=== PATIENT | male | born 1955 | race Caucasian/White ===

== ENCOUNTER 2018-03-10 10:04 | Inpatient (IN) | payer MEDICARE ==
[~2018-03-10] VITALS: Ht 170.2 cm; Wt 79.0 kg
[2018-03-10] MEDS ORDERED: MEMA10TA PO (10:39)
[2018-03-10] MEDS ORDERED: VENL75CA6 PO (10:39)
[2018-03-10] MEDS ORDERED: POLY17PO5 PO (10:39)
[2018-03-10] MEDS ORDERED: LAMO25TA PO (10:39)
[2018-03-10] MEDS ORDERED: RISP0.5T24 PO (10:39)
--- NOTE | 2018-03-10 10:48 | RAD ---
CT HEAD WO CONTRAST History: MEDICAL CLEARANCE, PSYCH EVALUATION Comparison: None. Technique: Noncontrast CT imaging was performed of the head. Exposure: One or more of the following individualized dose reduction techniques were utilized for this examination: 1. Automated exposure control 2. Adjustment of the mA and/or kV according to patient size 3. Use of iterative reconstruction technique. Findings: No acute extra-axial or parenchymal hemorrhage is identified. There is no significant intra-axial mass effect, midline shift, or extra-axial fluid collection. The hester-white differentiation of the major vascular territories is preserved. Ventricular size is within normal limits. There is mild ill-defined low-density of the supratentorial white matter bilaterally. The mastoid air cells and the visualized paranasal sinuses are aerated. No acute calvarial abnormality is identified. Impression: 1. No acute intracranial abnormality is identified. Mild ill-defined low-density of the supratentorial white matter bilaterally is nonspecific, may be due to chronic microvascular ischemic disease. Electronically signed by: Kip Richardson MD (03/10/2018 10:44 AM) [email or web address]
[2018-03-10 11:03] LABS: ALBUMIN 4.1 g/dL (3.4-5.0); ALBUMIN/GLOBULIN RATIO 1.1 (1.0-1.7); CALCIUM 9.4 mg/dL (8.5-10.1); GFR 75.7; POTASSIUM 4.3 mmol/L (3.5-5.1); TOTAL BILIRUBIN 0.5 mg/dL (0.2-1.0)
[2018-03-10 11:17] LABS: BASO # 0.1 x10^3/uL (0.0-0.2); BASO % 1 % (0-3); EOS # 0.2 x10^3/uL (0.0-0.7); EOS % 3 % (0-3); HEMATOCRIT 44.8 % (39.0-53.0); HEMOGLOBIN 15.2 g/dL (13.0-17.5); LYMPH # 1.4 x10^3/uL (1.0-4.8); LYMPH % 20 % (24-48); MEAN CORPUSCULAR HEMOGLOBIN 31 pg (25-35); MEAN CORPUSCULAR HGB CONC 34 g/dL (31-37); MEAN CORPUSCULAR VOLUME 91 fL (79-100); MONO # 0.7 x10^3/uL (0.0-1.1); MONO % 10 % (0-9); NEUT # 4.8 x10^3uL (1.8-7.7); NEUT % 66 % (31-73); PLATELET COUNT 266 x10^3/uL (140-400); RED BLOOD COUNT 4.95 x10^6/uL (4.30-5.70); RED CELL DISTRIBUTION WIDTH 12.8 % (11.5-14.5); WHITE BLOOD COUNT 7.2 x10^3/uL (4.0-11.0)
--- NOTE | 2018-03-10 11:27 | PHYS DOC ---
Past History Past Medical History: Dementia, High Cholesterol Past Surgical History: No Surgical History Alcohol Use: None Additional Alcohol Information: Used to be a heavy drinker. Drug Use: None Adult General Chief Complaint Chief Complaint: PSYCH EVALUATION HPI HPI 62-year-old male presenting the emergency department today for medical clearance prior to [facility] admission. Patient has a history of chronic dementia. He denies any pain. Family members deny any acute changes in his mental status. He has been more agitated at the facility he is living. They report he has been throwing chairs at adult daycare. The patient is on Lamictal Risperdal. onset 1 week. duration intermittent. no alleviating factors. Review of systems is negative for chest pain shortness of breath abdominal pain nausea vomiting. Negative for fevers chills neck pain neck stiffness. All other review of systems is negative unless otherwise noted in history of present illness. ED course: 62-year-old male presenting the emergency department today for medical clearance prior to [facility] admission. On arrival he is afebrile with a normal heart rate. On examination, the patient is well- appearing and nontoxic. Normal range of motion of the neck. Abdomen is soft and nontender. Unremarkable neurologic exam. Head CT unremarkable. Blood work unremarkable. EKG reviewed by myself shows sinus rhythm with a regular rate. ST segments are not suggestive of ischemia. No previous for comparison. Patient is medically cleared. The patient was then admitted to the [facility] for further evaluation treatment and care. Review of Systems Review of Systems SEE ABOVE. Allergies Allergies Allergies Coded Allergies Type Severity Reaction Last Updated Verified hydrocodone Allergy Unknown 03/10/18 Yes Physical Exam Physical Exam SEE ABOVE Constitutional: Well developed, well nourished, no acute distress, non-toxic appearance. HENT: Normocephalic, atraumatic, bilateral external ears normal, oropharynx moist, no oral exudates, nose normal. [] Eyes: PERRLA, EOMI, conjunctiva normal, no discharge. Neck: Normal range of motion, no tenderness, supple, no stridor. [] Cardiovascular:Heart rate regular rhythm, no murmur [] Lungs & Thorax: Bilateral breath sounds clear to auscultation Abdomen: Bowel sounds normal, soft, no tenderness, no masses, no pulsatile masses. [] Skin: Warm, dry, no erythema, no rash. Back: No tenderness, no CVA tenderness. [] Extremities: No tenderness, no cyanosis, no clubbing, ROM intact, no edema. [] Neurologic: Mental status: Awake oriented and alert x3 Cranial nerves: Extraocular movements intact, eyebrows megan bilaterally, smile symmetric, uvula elevation nl, shoulder shrug intact bilaterally, tongue protrusion normal DTRs: 2+ Sensation: equal and normal in all extremities Strength: 5/5 in upper and lower extremities bilaterally Psychologic: Affect normal, judgement normal, mood normal. [] Current Patient Data Vital Signs Vital Signs Date Time Temp Pulse Resp B/P (MAP) Pulse Ox O2 Delivery O2 Flow Rate FiO2 03/10/18 10:35 97.8 75 16 99 Room Air Lab Results Laboratory Tests Test 03/10/18 10:26 Sodium Level 142 mmol/L (136-145) Potassium Level 4.3 mmol/L (3.5-5.1) Chloride Level 103 mmol/L (98-107) Carbon Dioxide Level 31 mmol/L (21-32) Anion Gap 8 (6-14) Blood Urea Nitrogen 14 mg/dL (8-26) Creatinine 1.0 mg/dL (0.7-1.3) Estimated GFR (Cockcroft-Gault) 75.7 BUN/Creatinine Ratio 14 (6-20) Glucose Level 72 mg/dL (70-99) Calcium Level 9.4 mg/dL (8.5-10.1) Total Bilirubin 0.5 mg/dL (0.2-1.0) Aspartate Amino Transferase (AST) 20 U/L (15-37) Alanine Aminotransferase (ALT) 29 U/L (16-63) Alkaline Phosphatase 85 U/L (46-116) Total Protein 8.0 g/dL (6.4-8.2) Albumin 4.1 g/dL (3.4-5.0) Albumin/Globulin Ratio 1.1 (1.0-1.7) EKG EKG [] Radiology/Procedures Radiology/Procedures [] Course & Med Decision Making Course & Med Decision Making Pertinent Labs and Imaging studies reviewed. (See chart for details) [] Dragon Disclaimer Dragon Disclaimer This electronic medical record was generated, in whole or in part, using a voice recognition dictation system. Departure Departure: Impression: Primary Impression: Medical clearance for psychiatric admission Disposition: ADMITTED INPATIENT Condition: STABLE Referrals: VINOD CAN (PCP) JAY PATTERSON MD March 10, 2018 11:27
[2018-03-10 12:18] LABS: BACTERIA,URINE 0 /HPF (0-FEW); BILIRUBIN,URINE NEG (NEG); CLARITY,URINE HAZY; COLOR,URINE AMBER; GLUCOSE,URINE NEG (NEG); NITRITE,URINE NEG (NEG); RBC,URINE 0 /HPF (0-2); SQUAMOUS EPITHELIAL CELL,UR OCC /LPF; UROBILINOGEN,URINE 0.2 mg/dL (0.2 mg/dL); WBC,URINE RARE /HPF (0-4)
[2018-03-10 13:57] VITALS: BP 129/77
--- NOTE | 2018-03-10 14:28 | EKG ---
[address] [address] Test Date: 2018-03-10 Test Time: 10:43:20 Pat Name: ARNOL VARGAS Department: Room: [address] [place] [id number] Gender: M Packer Fuser: : [id number] Requested By: JAY PATTERSON Order Number: [id number] Reading MD: Pako Givens MD Measurements Intervals Muir Rate: 77 P: -4 MO: 154 QRS: 24 QRSD: 102 T: 8 QT: 406 QTc: 461 Interpretive Statements SINUS RHYTHM Electronically Signed On 03-29-2018 9:57:23 CDT by Pako Givens MD
[2018-03-10] MEDS ORDERED: ASPI-630 PO (14:51)
[2018-03-10] MEDS ORDERED: RISP1TAB3 PO (14:51)
[2018-03-10] MEDS ORDERED: MULT1TAB52 PO (14:51)
[2018-03-10] MEDS ORDERED: METHYL SALICYLATE/MENTHOL TOPICAL OINTMENT 29GM TUBE. TP PRN (15:00)
[2018-03-10] MEDS ORDERED: MAGNESIUM HYDROXIDE 2,400 MG/30 ML ORAL.SUSP. PO PRN (15:00)
[2018-03-10] MEDS ORDERED: ACETAMINOPHEN 325 MG TABLET PO PRN (15:00)
[2018-03-10] MEDS ORDERED: MAG HYDROX/AL HYDROX/SIMETH 30 ML ORAL.SUSP PO PRN (15:00)
[2018-03-10 16:05] VITALS: BP 127/81
[2018-03-10] MEDS: MEMANTINE 10 MG TABLET. PO SCH (19:37)
--- NOTE | 2018-03-10 19:49 | HP ---
ADMIT DATE: 03/10/2018 This note covers the elements not covered in my initial note, 03/10/2018. SUMMARY OF PROGRESS: I met with the patient evening of 03/10/2018. I reviewed the chart and previously had discussed with the nursing staff. IDENTIFYING DATA: The patient was in the Emergency Room at [facility], presented from home where he lives with his spouse, on an account of increasing agitation after he threw chairs at the adult daycare. He was increasingly paranoid, psychotic, and aggressive at home. Psychotropic medication changes had been initiated by his primary care physician, Dr. Jesika Johnson in [place] and he had failed all of this resulting in this referral. CHIEF COMPLAINT: "No." HISTORY OF PRESENT ILLNESS: The patient has a history of dementia, Alzheimer's vascular type. Additionally, recently he has been having some mild seizure-like activity as well. We will consult Dr. Guardado for this. As mentioned above, he was getting increasingly paranoid, agitated, and aggressive at home, throwing the chairs at the adult daycare. He has had sleep and appetite changes. No clear history of bipolar disorder, suicidal or homicidal ideation. PAST PSYCHIATRIC HISTORY: As above. MEDICAL HISTORY: Positive for hyperlipidemia, seizure disorder. CODE STATUS: DNR. ALLERGIES: HYDROCODONE. ACCU-CHEKS: None. DIET: Regular, he takes his medications whole, ambulates up ad chiqui. CURRENT PSYCHOTROPICS: Risperdal 0.5 mg a.m., 1 mg at 1400; Lamictal 75 mg daily, Namenda 10 mg b.i.d., Effexor ER 75 mg a day. FAMILY HISTORY: Noncontributory. His mother from early onset Alzheimer's at age 65. SOCIAL HISTORY: The patient used to drink 2 or 3 bourbon each night to help him go to sleep according to the family. 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 He moved to [place] to write about [employer]. He has three children, 6 grandchildren, has been to his Debra for 40 years. They moved back to the [facility] after he was diagnosed with early onset Alzheimer's at age 57, to be near to their children. He also smoked cigarettes until 03/2017. Debra is his caregiver at home, would like for him to return home if at all possible. He has been mainly continent, but needs assistance with showering, shaving, help with wiping after bowel movements. REACTION TO HOSPITALIZATION: The patient is oblivious of this assets, supportive family. MENTAL STATUS EXAMINATION: The patient was seen individually evening of 03/10/2018. He is oriented to himself. Has a parkinsonian facial expression. He is not very verbal, somewhat withdrawn. Insight, judgment, recent and remote memory, attention, concentration, fund of knowledge poor, consistent with his diagnosis. LABORATORY DATA: Reviewed. CT head reportedly has been unremarkable. During the day today since being on the unit, he has been agitated, restless, through a combat, his nurse oblivious of what he was doing. IMPRESSION: Major neurocognitive disorder, probably Alzheimer, vascular with delusion, depression, behavioral disturbance; anxiety disorder, unspecified; impulse control disorder, unspecified; parkinsonian facial expression possibly consequent to EPS from Risperdal. Rest as above. PLAN: Admit to Geropsychiatry Unit at [facility]. I will see the patient daily individually from a psychiatric standpoint, medical followup per Dr. Tejada/Dr. Knight. Given his parkinsonian facial expression and extrapyramidal symptoms, we will go ahead and drop the Risperdal down to 0.5 mg twice a day. He does appear depressed. We will increase Effexor ER to 112.5 mg a day and start Zyprexa 2.5 mg every 2 hours as needed psychosis, agitation, maximum 10 mg in 24 hours. Increase lamotrigine to 100 mg a day. Neurology consult with Dr. Guardado for his seizures. Estimated length of stay 10-12 days. Discharge plan to either home or to a nursing facility depending on his progress and response to hospitalization. EVE BLANK MD DR: NBA/ariana JOB#: [id number] / [id number]
--- NOTE | 2018-03-10 20:51 | PDOC ---
Exam Note: Tadeo Note: Please also refer to the separate dictated note~for this date of service dictated separately.~Patient seen individually. Discussed the patient with Nursing staff reviewed the chart.~Reviewed interim history and current functioning. Reviewed vital signs,~Labs/ Radiology~and current medications noted below. Continue current treatment with the changes noted in the dictated addendum note Assessment: Vital Signs: Vital Signs Date Time Temp Pulse Resp B/P (MAP) Pulse Ox O2 Delivery O2 Flow Rate FiO2 03/10/18 16:05 97.8 88 20 127/81 (96) 92 Room Air Labs: Laboratory Tests Test 03/10/18 10:26 03/10/18 11:46 White Blood Count 7.2 x10^3/uL (4.0-11.0) Red Blood Count 4.95 x10^6/uL (4.30-5.70) Hemoglobin 15.2 g/dL (13.0-17.5) Hematocrit 44.8 % (39.0-53.0) Mean Corpuscular Volume 91 fL (79-100) Mean Corpuscular Hemoglobin 31 pg (25-35) Mean Corpuscular Hemoglobin Concent 34 g/dL (31-37) Red Cell Distribution Width 12.8 % (11.5-14.5) Platelet Count 266 x10^3/uL (140-400) Neutrophils (%) (Auto) 66 % (31-73) Lymphocytes (%) (Auto) 20 % (24-48) L Monocytes (%) (Auto) 10 % (0-9) H Eosinophils (%) (Auto) 3 % (0-3) Basophils (%) (Auto) 1 % (0-3) Neutrophils # (Auto) 4.8 x10^3uL (1.8-7.7) Lymphocytes # (Auto) 1.4 x10^3/uL (1.0-4.8) Monocytes # (Auto) 0.7 x10^3/uL (0.0-1.1) Eosinophils # (Auto) 0.2 x10^3/uL (0.0-0.7) Basophils # (Auto) 0.1 x10^3/uL (0.0-0.2) Sodium Level 142 mmol/L (136-145) Potassium Level 4.3 mmol/L (3.5-5.1) Chloride Level 103 mmol/L (98-107) Carbon Dioxide Level 31 mmol/L (21-32) Anion Gap 8 (6-14) Blood Urea Nitrogen 14 mg/dL (8-26) Creatinine 1.0 mg/dL (0.7-1.3) Estimated GFR (Cockcroft-Gault) 75.7 BUN/Creatinine Ratio 14 (6-20) Glucose Level 72 mg/dL (70-99) Calcium Level 9.4 mg/dL (8.5-10.1) Magnesium Level 2.2 mg/dL (1.8-2.4) Total Bilirubin 0.5 mg/dL (0.2-1.0) Aspartate Amino Transferase (AST) 20 U/L (15-37) Alanine Aminotransferase (ALT) 29 U/L (16-63) Alkaline Phosphatase 85 U/L (46-116) Total Protein 8.0 g/dL (6.4-8.2) Albumin 4.1 g/dL (3.4-5.0) Albumin/Globulin Ratio 1.1 (1.0-1.7) Urine Collection Type Unknown Urine Color Christy Urine Clarity Hazy Urine pH 7.0 Urine Specific [place] 1.020 Urine Protein Neg (NEG-TRACE) Urine Glucose (UA) Neg mg/dL (NEG) Urine Ketones (Stick) Neg mg/dL (NEG) Urine Blood Neg (NEG) Urine Nitrite Neg (NEG) Urine Bilirubin Neg (NEG) Urine Urobilinogen Dipstick 0.2 mg/dL (0.2 mg/dL) Urine Leukocyte Esterase Neg (NEG) Urine RBC 0 /HPF (0-2) Urine WBC Rare /HPF (0-4) Urine Squamous Epithelial Cells Occ /LPF Urine Bacteria 0 /HPF (0-FEW) Urine Mucus Slight /LPF Current Medications: Meds: Current Medications Aspirin (Children'S Aspirin) 81 mg DAILYWBKFT PO ; Start 03/11/18 at 08:00 Lamotrigine (LaMICtal) 75 mg DAILY PO ; Start 03/11/18 at 09:00; Stop 03/11/18 at 09:00; Status DC Memantine (Namenda) 10 mg BID PO Last administered on 03/10/18at 19:37; Start at 21:00 Multivitamins/ Calcium (Thera-M Plus) 1 tab DAILY PO ; Start 03/11/18 at 09:00 Polyethylene Glycol (miraLAX) 17 gm DAILY PO ; Start 03/11/18 at 09:00 Risperidone (RisperDAL) 1 mg DAILY@1400 PO ; Start 03/11/18 at 14:00; Stop 03/11 at 14:00; Status DC Risperidone (RisperDAL) 0.5 mg DAILY PO ; Start 03/11/18 at 09:00; Stop at 09:00; Status DC Venlafaxine HCl (Effexor Xr) 75 mg DAILY PO ; Start 03/11/18 at 09:00; Stop at 09:00; Status DC Acetaminophen (Tylenol) 650 mg PRN Q6HRS PRN PO PAIN / TEMP; Start 03/10/18 at 15:00 Multi-Ingredient Ointment (Analgesic [place]) 1 teri PRN QID PRN TP MUSCLE PAIN; Start 03/10/18 at 15:00 Al Hydroxide/Mg Hydroxide (Mylanta Plus Xs) 15 ml PRN AFTMEALHC PRN PO DYSPEPSIA; Start 03/10/18 at 15:00 Magnesium Hydroxide (Milk Of Magnesia) 2,400 mg PRN QHS PRN PO CONSTIPATION; Start 03/10/18 at 15:00 Risperidone (RisperDAL) 0.5 mg BID@0900,1400 PO ; Start 03/11/18 at 09:00 Olanzapine (ZyPREXA ZYDIS) 2.5 mg PRN Q2HR PRN PO agitation/aggression/ psychosis Last administered on 03/10/18at 19:37; Start 03/10/18 at 18:30 Lamotrigine (LaMICtal) 100 mg DAILY PO ; Start 03/11/18 at 09:00 Venlafaxine HCl (Effexor Xr) 112.5 mg DAILY PO ; Start 03/11/18 at 09:00 Active Scripts Active Reported Multivitamins (Multivitamin) 1 Each Tablet 1 Each PO DAILY Aspirin 81 Mg Tab.chew 81 Mg PO DAILY Risperidone 1 Mg Tablet 1 Mg PO DAILY@1400 Venlafaxine Hcl Er (Venlafaxine Hcl) 75 Mg Cap.er.24h 75 Mg PO DAILY Namenda (Memantine Hcl) 10 Mg Tablet 10 Mg PO BID Lamotrigine 25 Mg Tablet 75 Mg PO DAILY Miralax (Polyethylene Glycol 3350) 17 Gm Powd.pack 17 Gm PO DAILY Risperdal (Risperidone) 0.5 Mg Tablet 0.5 Mg PO DAILY I have reviewed the current psychotropics carefully including drug interactions. Risk benefit ratio favors no change other than as noted in my dictated progress note. Diagnosis: Problems: (1) Anxiety disorder (2) Dementia in Alzheimer's disease with delusions (3) Dementia in Alzheimer's disease with delusions (4) Dementia in Alzheimer's disease with depression (5) Dementia, vascular, with delusions (6) Dementia, vascular, with depression (7) Impulse control disorder EVE BLANK MD March 10, 2018 20:51
[2018-03-11 05:11] LABS: T3 TOTAL 115 ng/dL (71-180); THYROXINE 7.8 ug/dL (4.5-12.0)
[2018-03-11 06:04] VITALS: BP 139/81
[2018-03-11 06:09] LABS: HEMOGLOBIN A1C 5.7 % (4.8-5.6)
[2018-03-11] MEDS: MEMANTINE 10 MG TABLET. PO SCH ×2 (08:20→19:47)
[2018-03-11] MEDS: MULTIVITAMIN with MINERAL TABLET. PO SCH (08:24)
[2018-03-11] MEDS: risperiDONE 0.5 MG TABLET. PO SCH ×2 (08:24→13:57)
[2018-03-11] MEDS: VENLAFAXINE XR 37.5 MG CAP.ER.24H. PO SCH (08:24)
[2018-03-11] MEDS: ASPIRIN 81 MG TAB.CHEW PO SCH (08:25)
[2018-03-11] MEDS: lamoTRIgine 100 MG TABLET. PO SCH (08:25)
[2018-03-11] MEDS: POLYETHYLENE GLYCOL 3350 17 GM PACKET. PO SCH (08:25)
[2018-03-11] MEDS ORDERED: lamoTRIgine 25 MG TABLET. PO SCH (09:00)
[2018-03-11] MEDS ORDERED: VENLAFAXINE XR 37.5 MG CAP.ER.24H. PO SCH (09:00)
[2018-03-11] MEDS ORDERED: risperiDONE 0.5 MG TABLET. PO SCH (09:00)
[2018-03-11] MEDS ORDERED: risperiDONE 1 MG TABLET. PO SCH (14:00)
[2018-03-11 14:20] LABS: THYROID STIM HORMONE (TSH) 1.289 uIU/mL (0.358-3.740)
[2018-03-11 16:01] VITALS: BP 129/67
--- NOTE | 2018-03-11 20:33 | PDOC ---
Exam Note: Tadeo Note: Please also refer to the separate dictated note~for this date of service dictated separately.~Patient seen individually. Discussed the patient with Nursing staff reviewed the chart.~Reviewed interim history and current functioning. Reviewed vital signs,~Labs/ Radiology~and current medications noted below. Continue current treatment with the changes noted in the dictated addendum note Assessment: Vital Signs: Vital Signs Date Time Temp Pulse Resp B/P (MAP) Pulse Ox O2 Delivery O2 Flow Rate FiO2 03/11/18 16:01 97.6 76 18 129/67 (87) 97 Room Air I&O Intake and Output 03/11/18 07:00 Intake Total 730 ml Balance 730 ml Intake Oral 730 ml Labs: Laboratory Tests Test 03/11/18 17:05 Prothrombin Time 10.1 SEC (9.4-11.4) Prothrombin Time INR 1.0 (0.9-1.1) Ammonia 16 mcmol/L (11-34) Current Medications: Meds: Current Medications Aspirin (Children'S Aspirin) 81 mg DAILYWBKFT PO Last administered on at 08:25; Start 03/11/18 at 08:00 Lamotrigine (LaMICtal) 75 mg DAILY PO ; Start 03/11/18 at 09:00; Stop 03/11/18 at 09:00; Status DC Memantine (Namenda) 10 mg BID PO Last administered on 03/11/18at 19:47; Start at 21:00 Multivitamins/ Calcium (Thera-M Plus) 1 tab DAILY PO Last administered on at 08:24; Start 03/11/18 at 09:00 Polyethylene Glycol (miraLAX) 17 gm DAILY PO Last administered on 03/11/18at 08: 25; Start 03/11/18 at 09:00 Risperidone (RisperDAL) 1 mg DAILY@1400 PO ; Start 03/11/18 at 14:00; Stop 03/11 at 14:00; Status DC Risperidone (RisperDAL) 0.5 mg DAILY PO ; Start 03/11/18 at 09:00; Stop at 09:00; Status DC Venlafaxine HCl (Effexor Xr) 75 mg DAILY PO ; Start 03/11/18 at 09:00; Stop at 09:00; Status DC Acetaminophen (Tylenol) 650 mg PRN Q6HRS PRN PO PAIN / TEMP; Start 03/10/18 at 15:00 Multi-Ingredient Ointment (Analgesic [place]) 1 teri PRN QID PRN TP MUSCLE PAIN; Start 03/10/18 at 15:00 Al Hydroxide/Mg Hydroxide (Mylanta Plus Xs) 15 ml PRN AFTMEALHC PRN PO DYSPEPSIA; Start 03/10/18 at 15:00 Magnesium Hydroxide (Milk Of Magnesia) 2,400 mg PRN QHS PRN PO CONSTIPATION; Start 03/10/18 at 15:00 Risperidone (RisperDAL) 0.5 mg BID@0900,1400 PO Last administered on 03/11/18at 13:57; Start 03/11/18 at 09:00 Olanzapine (ZyPREXA ZYDIS) 2.5 mg PRN Q2HR PRN PO agitation/aggression/ psychosis Last administered on 03/10/18at 19:37; Start 03/10/18 at 18:30 Lamotrigine (LaMICtal) 100 mg DAILY PO Last administered on 03/11/18at 08:25; Start 03/11/18 at 09:00 Venlafaxine HCl (Effexor Xr) 112.5 mg DAILY PO Last administered on 03/11/18at 08:24; Start 03/11/18 at 09:00 Mirtazapine (Remeron) 7.5 mg QHS PO ; Start 03/11/18 at 21:00 Trazodone HCl (Desyrel) 50 mg PRN QHS PRN PO INSOMNIA; Start 03/11/18 at 20:30 Active Scripts Active Reported Multivitamins (Multivitamin) 1 Each Tablet 1 Each PO DAILY Aspirin 81 Mg Tab.chew 81 Mg PO DAILY Risperidone 1 Mg Tablet 1 Mg PO DAILY@1400 Venlafaxine Hcl Er (Venlafaxine Hcl) 75 Mg Cap.er.24h 75 Mg PO DAILY Namenda (Memantine Hcl) 10 Mg Tablet 10 Mg PO BID Lamotrigine 25 Mg Tablet 75 Mg PO DAILY Miralax (Polyethylene Glycol 3350) 17 Gm Powd.pack 17 Gm PO DAILY Risperdal (Risperidone) 0.5 Mg Tablet 0.5 Mg PO DAILY I have reviewed the current psychotropics carefully including drug interactions. Risk benefit ratio favors no change other than as noted in my dictated progress note. Diagnosis: Problems: (1) Anxiety disorder (2) Dementia in Alzheimer's disease with delusions (3) Dementia in Alzheimer's disease with delusions (4) Dementia in Alzheimer's disease with depression (5) Dementia, vascular, with delusions (6) Dementia, vascular, with depression (7) Impulse control disorder EVE BLANK MD March 11, 2018 20:33
[2018-03-11] MEDS: MIRTAZAPINE 7.5 MG TABLET. PO SCH (20:38)
[2018-03-11] MEDS: traZODone 50 MG TABLET. PO PRN ×2 (20:38→23:10)
[2018-03-12 02:01] VITALS: BP 128/59
[2018-03-12 05:55] VITALS: BP 100/64
[2018-03-12] MEDS: MEMANTINE 10 MG TABLET. PO SCH ×2 (09:27→19:46)
[2018-03-12] MEDS: MULTIVITAMIN with MINERAL TABLET. PO SCH (09:28)
[2018-03-12] MEDS: POLYETHYLENE GLYCOL 3350 17 GM PACKET. PO SCH (09:28)
[2018-03-12] MEDS: VENLAFAXINE XR 37.5 MG CAP.ER.24H. PO SCH (09:28)
[2018-03-12] MEDS: lamoTRIgine 100 MG TABLET. PO SCH (09:28)
[2018-03-12] MEDS: risperiDONE 0.5 MG TABLET. PO SCH ×2 (09:28→14:24)
[2018-03-12] MEDS: ASPIRIN 81 MG TAB.CHEW PO SCH (09:28)
--- NOTE | 2018-03-12 10:01 | CONS ---
DATE OF CONSULTATION: 03/11/2018 REASON FOR CONSULTATION: Medical management. HISTORY OF PRESENT ILLNESS: The patient is a 62-year-old male patient, who apparently was seen in the Emergency Room at [facility], where he presented from home as he lives with his on the account of increasing agitation after he threw chairs at an adult daycare center. He was increasingly paranoid, psychotic, and aggressive at home. Psychotropic medication changes had been initiated by his primary care physician, but failed outside intervention and was admitted to this unit for inpatient psychiatric stabilization. PAST PSYCHIATRIC HISTORY: Significant for dementia of Alzheimer, vascular type. Apparently, he recently started having some mild seizure-like activity as well. PAST SURGICAL HISTORY: Significant for hyperlipidemia and seizure disorder. ALLERGIES: HE IS ALLERGIC TO HYDROCODONE. CURRENT MEDICATIONS: He is on aspirin 81 mg once a day, lamotrigine 75 mg once a day, venlafaxine 75 mg once a day, risperidone 0.5 mg daily, risperidone 1 mg daily, Namenda 10 mg twice a day, polyethylene glycol 17 g daily, and multivitamin 1 tablet once a day. FAMILY HISTORY: Noncontributory. SOCIAL HISTORY: He apparently lives with his . 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 He moved [place] to write about [employer]. He has 3 children and 6 grandchildren. He has been to his , Debra for more than 40 years, apparently they moved back to [facility] after he was diagnosed with early onset Alzheimer's at age of 57 to be near his children. Apparently, the patient has been drinking alcohol, he drinks 3 drinks per night, bourbon and water to help him sleep for many years. Does not drink anymore. He also smoked cigarettes until 03/2017 that has also stopped. He started having seizures in 01/23/2018. He apparently has small jerky movement in his hand, but has been having occasional seizures since January and his daughter states that they are cluster seizures and usually happens in the morning at around 30-minute timeframe. His primary care physician started Lamictal for seizure control; however, he was not seen by any neurologist before and did have a CT scan on arrival at [place] Emergency Room. When I saw him this afternoon, he was resting flat, comfortably in bed, in no apparent respiratory distress. He was awake, answers only one word, does not give any useful information, but clinically does not seem to be in any respiratory distress. He was somewhat pale, but no jaundice, cyanosis, or thyromegaly. No jugular venous distension. No limb edema. PHYSICAL EXAMINATION: VITAL SIGNS: His heart rate was 76, blood pressure was 129/67, temperature was 97.6, respiratory rate was 18 and oxygen saturation was 97%. HEAD, EYES, EARS, NOSE, and THROAT: Showed normocephalic, atraumatic. NECK: Supple. HEART: Showed normal first and second heart sounds. No gallop, rub or murmur. CHEST: Clear to auscultation. No crepitation or rhonchi. ABDOMEN: Slightly distended, soft, nontender. No guarding or rigidity. No organomegaly. Hernial orifice intact. Bowel sounds normal. NEUROLOGIC: He is awake, alert, but very confused, does not give any useful information. All his cranial nerves are intact. He moves extremities without difficulty, has very prominent myoclonic jerk that are random, ____. When he stretches his hands, he has what seems to be flapping tremor. Apparently these jerking movements can be a very strong such that he fell when he was walking this morning. LABORATORY DATA: Showed a serum sodium 142, potassium 4.3, chloride 103, bicarbonate 31, anion gap of 8, BUN ____, creatinine 1, estimated GFR was 76 mL per minute. His glucose was 72, calcium was 9.4. Total bilirubin, AST, ALT, alkaline phosphatase were normal. His total protein was 8 and albumin was 4.1. His hemoglobin A1c was 5.7, magnesium was 2.2. Serum iron 110. TIBC was 435 and percent saturation was 25. His serum triglycerides were 135, total cholesterol was 205, LDL cholesterol 117, VLDL was 27, HDL cholesterol was 61 and cholesterol to HDL cholesterol ratio was 3. His TSH was 1.289, total T4 was 7.8 and total T3 was 115. His white cell count was 7200, hemoglobin 15, hematocrit 45, MCV 91, and platelet count 266,000. Urinalysis showed the urine was rina, hazy with a pH of 7, specific gravity of 1.020. The urine was negative for protein, glucose, ketones, blood, nitrite and leukocyte esterase. Serology showed that his RPR is still pending. The CT scan of the head shows no acute intracranial abnormality identified, mild ill-defined low density of the supratentorial white matter bilaterally, is nonspecific and may be due to chronic microvascular ischemic disease. IMPRESSION: In summary, this is a 62-year-old male patient, who basically was admitted on account of increasing agitation after he threw chairs at the adult daycare. He was increasingly paranoid, psychotic and aggressive at home. Psychotropic medication changes have been initiated by his primary care physician, but failed and he was admitted to for inpatient psychiatric stabilization. He apparently has a history of dementia, Alzheimer's, vascular type. He also started having seizure recently. He has a history of alcoholism. He has a very random purposeless myoclonic jerks affecting his upper extremities, his head and also his lower extremities that sometimes can be so severe that throws him down to the floor. This is definitely not a seizure. It looks like more of flapping tremor or myoclonic jerks that we see in patients with end-stage organ failure like advanced hepatic disease. His lab work seemed to be all stable and within normal acceptable range. In particular, there is no evidence he has liver disease, although no ammonia or prothrombin time was checked, so I will arrange to check that. We will consult Dr. Guardado and other possibilities include perhaps Veto-Creutzfeldt disease. FRIDA DIA MD DR: WENDY/ariana JOB#: [id number] / [id number]
[2018-03-12] MEDS: clonazePAM 0.5 MG TABLET PO SCH ×2 (14:24→19:47)
[2018-03-12 15:56] VITALS: BP 102/69
[2018-03-12] MEDS: MIRTAZAPINE 7.5 MG TABLET. PO SCH (19:46)
--- NOTE | 2018-03-12 20:34 | PDOC ---
Exam Note: Tadeo Note: Please also refer to the separate dictated note~for this date of service dictated separately.~Patient seen individually. Discussed the patient with Nursing staff reviewed the chart.~Reviewed interim history and current functioning. Reviewed vital signs,~Labs/ Radiology~and current medications noted below. Continue current treatment with the changes noted in the dictated addendum note Assessment: Vital Signs: Vital Signs Date Time Temp Pulse Resp B/P (MAP) Pulse Ox O2 Delivery O2 Flow Rate FiO2 03/12/18 15:56 97.7 101 19 102/69 (80) 97 03/12/18 05:55 Room Air I&O Intake and Output 03/12/18 07:00 Intake Total 1320 ml Balance 1320 ml Intake Oral 1320 ml Current Medications: Meds: Current Medications Aspirin (Children'S Aspirin) 81 mg DAILYWBKFT PO Last administered on 03/12/18at 09:28; Start 03/11/18 at 08:00 Lamotrigine (LaMICtal) 75 mg DAILY PO ; Start 03/11/18 at 09:00; Stop 03/11/18 at 09:00; Status DC Memantine (Namenda) 10 mg BID PO Last administered on 03/12/18at 19:46; Start at 21:00 Multivitamins/ Calcium (Thera-M Plus) 1 tab DAILY PO Last administered on at 09:28; Start 03/11/18 at 09:00 Polyethylene Glycol (miraLAX) 17 gm DAILY PO Last administered on 03/12/18at 09: 28; Start 03/11/18 at 09:00 Risperidone (RisperDAL) 1 mg DAILY@1400 PO ; Start 03/11/18 at 14:00; Stop 03/11 at 14:00; Status DC Risperidone (RisperDAL) 0.5 mg DAILY PO ; Start 03/11/18 at 09:00; Stop at 09:00; Status DC Venlafaxine HCl (Effexor Xr) 75 mg DAILY PO ; Start 03/11/18 at 09:00; Stop at 09:00; Status DC Acetaminophen (Tylenol) 650 mg PRN Q6HRS PRN PO PAIN / TEMP; Start 03/10/18 at 15:00 Multi-Ingredient Ointment (Analgesic [place]) 1 teri PRN QID PRN TP MUSCLE PAIN; Start 03/10/18 at 15:00 Al Hydroxide/Mg Hydroxide (Mylanta Plus Xs) 15 ml PRN AFTMEALHC PRN PO DYSPEPSIA; Start 03/10/18 at 15:00 Magnesium Hydroxide (Milk Of Magnesia) 2,400 mg PRN QHS PRN PO CONSTIPATION; Start 03/10/18 at 15:00 Risperidone (RisperDAL) 0.5 mg BID@0900,1400 PO Last administered on 03/12/18at 14:24; Start 03/11/18 at 09:00 Olanzapine (ZyPREXA ZYDIS) 2.5 mg PRN Q2HR PRN PO agitation/aggression/ psychosis Last administered on 03/11/18at 23:12; Start 03/10/18 at 18:30 Lamotrigine (LaMICtal) 100 mg DAILY PO Last administered on 03/12/18at 09:28; Start 03/11/18 at 09:00 Venlafaxine HCl (Effexor Xr) 112.5 mg DAILY PO Last administered on 03/12/18at 09 :28; Start 03/11/18 at 09:00 Mirtazapine (Remeron) 7.5 mg QHS PO Last administered on 03/12/18at 19:46; Start 03/11/18 at 21:00 Trazodone HCl (Desyrel) 50 mg PRN QHS PRN PO INSOMNIA Last administered on 03/11at 23:10; Start 03/11/18 at 20:30 Clonazepam (KlonoPIN) 0.5 mg TID PO Last administered on 03/12/18at 19:47; Start 03/12/18 at 14:00 Active Scripts Active Reported Multivitamins (Multivitamin) 1 Each Tablet 1 Each PO DAILY Aspirin 81 Mg Tab.chew 81 Mg PO DAILY Risperidone 1 Mg Tablet 1 Mg PO DAILY@1400 Venlafaxine Hcl Er (Venlafaxine Hcl) 75 Mg Cap.er.24h 75 Mg PO DAILY Namenda (Memantine Hcl) 10 Mg Tablet 10 Mg PO BID Lamotrigine 25 Mg Tablet 75 Mg PO DAILY Miralax (Polyethylene Glycol 3350) 17 Gm Powd.pack 17 Gm PO DAILY Risperdal (Risperidone) 0.5 Mg Tablet 0.5 Mg PO DAILY I have reviewed the current psychotropics carefully including drug interactions. Risk benefit ratio favors no change other than as noted in my dictated progress note. Diagnosis: Problems: (1) Anxiety disorder (2) Dementia in Alzheimer's disease with delusions (3) Dementia in Alzheimer's disease with delusions (4) Dementia in Alzheimer's disease with depression (5) Dementia, vascular, with delusions (6) Dementia, vascular, with depression (7) Impulse control disorder EVE BLANK MD Mar 12, 2018 20:34
[2018-03-13 09:27] VITALS: BP 112/67
[2018-03-13] MEDS: ASPIRIN 81 MG TAB.CHEW PO SCH (09:28)
[2018-03-13] MEDS: POLYETHYLENE GLYCOL 3350 17 GM PACKET. PO SCH (09:30)
[2018-03-13] MEDS: lamoTRIgine 100 MG TABLET. PO SCH (09:30)
[2018-03-13] MEDS: clonazePAM 0.5 MG TABLET PO SCH ×3 (09:30→19:24)
[2018-03-13] MEDS: MEMANTINE 10 MG TABLET. PO SCH ×2 (09:30→19:24)
[2018-03-13] MEDS: MULTIVITAMIN with MINERAL TABLET. PO SCH (09:30)
[2018-03-13] MEDS: risperiDONE 0.5 MG TABLET. PO SCH ×2 (09:30→14:00)
[2018-03-13] MEDS: VENLAFAXINE XR 37.5 MG CAP.ER.24H. PO SCH (09:30)
[2018-03-13 16:31] VITALS: BP 115/71
[2018-03-13] MEDS: CHOLECALCIFEROL (VITAMIN D3) 50,000 UNIT CAPSULE PO SCH (17:23)
[2018-03-13] MEDS: MIRTAZAPINE 7.5 MG TABLET. PO SCH (19:24)
--- NOTE | 2018-03-13 22:00 | PDOC ---
Exam Note: Tadeo Note: Please also refer to the separate dictated note~for this date of service dictated separately.~Patient seen individually. Discussed the patient with Nursing staff reviewed the chart.~Reviewed interim history and current functioning. Reviewed vital signs,~Labs/ Radiology~and current medications noted below. Continue current treatment with the changes noted in the dictated addendum note Assessment: Vital Signs: Vital Signs Date Time Temp Pulse Resp B/P (MAP) Pulse Ox O2 Delivery O2 Flow Rate FiO2 03/13/18 16:31 98.1 86 22 115/71 (86) 94 03/12/18 05:55 Room Air I&O Intake and Output 03/13/18 07:00 Intake Total 360 ml Balance 360 ml Intake Oral 360 ml Current Medications: Meds: Current Medications Aspirin (Children'S Aspirin) 81 mg DAILYWBKFT PO Last administered on 03/13/18at 09:28; Start 03/11/18 at 08:00 Lamotrigine (LaMICtal) 75 mg DAILY PO ; Start 03/11/18 at 09:00; Stop 03/11/18 at 09:00; Status DC Memantine (Namenda) 10 mg BID PO Last administered on 03/13/18at 19:24; Start at 21:00 Multivitamins/ Calcium (Thera-M Plus) 1 tab DAILY PO Last administered on at 09:30; Start 03/11/18 at 09:00 Polyethylene Glycol (miraLAX) 17 gm DAILY PO Last administered on 03/13/18at 09: 30; Start 03/11/18 at 09:00 Risperidone (RisperDAL) 1 mg DAILY@1400 PO ; Start 03/11/18 at 14:00; Stop 03/11 at 14:00; Status DC Risperidone (RisperDAL) 0.5 mg DAILY PO ; Start 03/11/18 at 09:00; Stop at 09:00; Status DC Venlafaxine HCl (Effexor Xr) 75 mg DAILY PO ; Start 03/11/18 at 09:00; Stop at 09:00; Status DC Acetaminophen (Tylenol) 650 mg PRN Q6HRS PRN PO PAIN / TEMP; Start 03/10/18 at 15:00 Multi-Ingredient Ointment (Analgesic [place]) 1 teri PRN QID PRN TP MUSCLE PAIN; Start 03/10/18 at 15:00 Al Hydroxide/Mg Hydroxide (Mylanta Plus Xs) 15 ml PRN AFTMEALHC PRN PO DYSPEPSIA; Start 03/10/18 at 15:00 Magnesium Hydroxide (Milk Of Magnesia) 2,400 mg PRN QHS PRN PO CONSTIPATION; Start 03/10/18 at 15:00 Risperidone (RisperDAL) 0.5 mg BID@0900,1400 PO Last administered on 03/13/18at 09:30; Start 03/11/18 at 09:00 Olanzapine (ZyPREXA ZYDIS) 2.5 mg PRN Q2HR PRN PO agitation/aggression/ psychosis Last administered on 03/11/18at 23:12; Start 03/10/18 at 18:30 Lamotrigine (LaMICtal) 100 mg DAILY PO Last administered on 03/13/18at 09:30; Start 03/11/18 at 09:00 Venlafaxine HCl (Effexor Xr) 112.5 mg DAILY PO Last administered on 03/13/18at 09 :30; Start 03/11/18 at 09:00 Mirtazapine (Remeron) 7.5 mg QHS PO Last administered on 03/13/18 19:24; Start 03/11/18 at 21:00 Trazodone HCl (Desyrel) 50 mg PRN QHS PRN PO INSOMNIA Last administered on 03/11at 23:10; Start 03/11/18 at 20:30 Clonazepam (KlonoPIN) 0.5 mg TID PO Last administered on 03/13/18at 19:24; Start 03/12/18 at 14:00 Vitamin D (Vitamin D3) 50,000 unit WEEKLY PO Last administered on 03/13/18at 17: 23; Start 03/13/18 at 15:15 Active Scripts Active Reported Multivitamins (Multivitamin) 1 Each Tablet 1 Each PO DAILY Aspirin 81 Mg Tab.chew 81 Mg PO DAILY Risperidone 1 Mg Tablet 1 Mg PO DAILY@1400 Venlafaxine Hcl Er (Venlafaxine Hcl) 75 Mg Cap.er.24h 75 Mg PO DAILY Namenda (Memantine Hcl) 10 Mg Tablet 10 Mg PO BID Lamotrigine 25 Mg Tablet 75 Mg PO DAILY Miralax (Polyethylene Glycol 3350) 17 Gm Powd.pack 17 Gm PO DAILY Risperdal (Risperidone) 0.5 Mg Tablet 0.5 Mg PO DAILY I have reviewed the current psychotropics carefully including drug interactions. Risk benefit ratio favors no change other than as noted in my dictated progress note. Diagnosis: Problems: (1) Anxiety disorder (2) Dementia in Alzheimer's disease with delusions (3) Dementia in Alzheimer's disease with delusions (4) Dementia in Alzheimer's disease with depression (5) Dementia, vascular, with delusions (6) Dementia, vascular, with depression (7) Impulse control disorder EVE BLANK MD Mar 13, 2018 22:00
[2018-03-14] MEDS: VENLAFAXINE XR 37.5 MG CAP.ER.24H. PO SCH (09:19)
[2018-03-14] MEDS: ASPIRIN 81 MG TAB.CHEW PO SCH (09:19)
[2018-03-14] MEDS: risperiDONE 0.5 MG TABLET. PO SCH ×2 (09:20→14:51)
[2018-03-14] MEDS: POLYETHYLENE GLYCOL 3350 17 GM PACKET. PO SCH (09:20)
[2018-03-14] MEDS: lamoTRIgine 100 MG TABLET. PO SCH (09:20)
[2018-03-14] MEDS: MULTIVITAMIN with MINERAL TABLET. PO SCH (09:20)
[2018-03-14] MEDS: MEMANTINE 10 MG TABLET. PO SCH ×2 (09:22→19:30)
[2018-03-14] MEDS: clonazePAM 0.5 MG TABLET PO SCH ×3 (09:22→19:30)
[2018-03-14 09:47] VITALS: BP 105/72
[2018-03-14 16:24] VITALS: BP 125/82
[2018-03-14] MEDS: MIRTAZAPINE 7.5 MG TABLET. PO SCH (19:30)
[2018-03-14] MEDS: traZODone 50 MG TABLET. PO PRN (19:31)
--- NOTE | 2018-03-14 19:50 | PDOC ---
Exam Note: Tadeo Note: Please also refer to the separate dictated note~for this date of service dictated separately.~Patient seen individually. Discussed the patient with Nursing staff reviewed the chart.~Reviewed interim history and current functioning. Reviewed vital signs,~Labs/ Radiology~and current medications noted below. Continue current treatment with the changes noted in the dictated addendum note Assessment: Vital Signs: Vital Signs Date Time Temp Pulse Resp B/P (MAP) Pulse Ox O2 Delivery O2 Flow Rate FiO2 03/14/18 16:24 98.0 100 18 125/82 (96) 91 03/14/18 09:47 Room Air I&O Intake and Output 03/14/18 07:00 Intake Total 660 ml Balance 660 ml Intake Oral 660 ml Current Medications: Meds: Current Medications Aspirin (Children'S Aspirin) 81 mg DAILYWBKFT PO Last administered on 03/14/18at 09:19; Start 03/11/18 at 08:00 Lamotrigine (LaMICtal) 75 mg DAILY PO ; Start 03/11/18 at 09:00; Stop 03/11/18 at 09:00; Status DC Memantine (Namenda) 10 mg BID PO Last administered on 03/14/18at 19:30; Start at 21:00 Multivitamins/ Calcium (Thera-M Plus) 1 tab DAILY PO Last administered on at 09:20; Start 03/11/18 at 09:00 Polyethylene Glycol (miraLAX) 17 gm DAILY PO Last administered on 03/14/18at 09: 20; Start 03/11/18 at 09:00 Risperidone (RisperDAL) 1 mg DAILY@1400 PO ; Start 03/11/18 at 14:00; Stop 03/11 at 14:00; Status DC Risperidone (RisperDAL) 0.5 mg DAILY PO ; Start 03/11/18 at 09:00; Stop at 09:00; Status DC Venlafaxine HCl (Effexor Xr) 75 mg DAILY PO ; Start 03/11/18 at 09:00; Stop at 09:00; Status DC Acetaminophen (Tylenol) 650 mg PRN Q6HRS PRN PO PAIN / TEMP; Start 03/10/18 at 15:00 Multi-Ingredient Ointment (Analgesic [place]) 1 teri PRN QID PRN TP MUSCLE PAIN; Start 03/10/18 at 15:00 Al Hydroxide/Mg Hydroxide (Mylanta Plus Xs) 15 ml PRN AFTMEALHC PRN PO DYSPEPSIA; Start 03/10/18 at 15:00 Magnesium Hydroxide (Milk Of Magnesia) 2,400 mg PRN QHS PRN PO CONSTIPATION; Start 03/10/18 at 15:00 Risperidone (RisperDAL) 0.5 mg BID@0900,1400 PO Last administered on 03/14/18at 14:51; Start 03/11/18 at 09:00; Stop 03/14/18 at 15:53; Status DC Olanzapine (ZyPREXA ZYDIS) 2.5 mg PRN Q2HR PRN PO agitation/aggression/ psychosis Last administered on 03/14/18 19:31; Start 03/10/18 at 18:30 Lamotrigine (LaMICtal) 100 mg DAILY PO Last administered on 03/14/18at 09:20; Start 03/11/18 at 09:00; Stop 03/15/18 at 11:00 Venlafaxine HCl (Effexor Xr) 112.5 mg DAILY PO Last administered on 03/14/18 09 :19; Start 03/11/18 at 09:00 Mirtazapine (Remeron) 7.5 mg QHS PO Last administered on 03/14/18 19:30; Start 03/11/18 at 21:00 Trazodone HCl (Desyrel) 50 mg PRN QHS PRN PO INSOMNIA Last administered on 19:31; Start 03/11/18 at 20:30 Clonazepam (KlonoPIN) 0.5 mg TID PO Last administered on 03/14/18 19:30; Start 03/12/18 at 14:00 Vitamin D (Vitamin D3) 50,000 unit WEEKLY PO Last administered on 03/13/18at 17: 23; Start 03/13/18 at 15:15 Risperidone (RisperDAL) 0.25 mg BID92 PO ; Start 03/15/18 at 09:00 Lamotrigine (LaMICtal) 150 mg DAILY PO ; Start 03/16/18 at 09:00 Active Scripts Active Reported Multivitamins (Multivitamin) 1 Each Tablet 1 Each PO DAILY Aspirin 81 Mg Tab.chew 81 Mg PO DAILY Risperidone 1 Mg Tablet 1 Mg PO DAILY@1400 Venlafaxine Hcl Er (Venlafaxine Hcl) 75 Mg Cap.er.24h 75 Mg PO DAILY Namenda (Memantine Hcl) 10 Mg Tablet 10 Mg PO BID Lamotrigine 25 Mg Tablet 75 Mg PO DAILY Miralax (Polyethylene Glycol 3350) 17 Gm Powd.pack 17 Gm PO DAILY Risperdal (Risperidone) 0.5 Mg Tablet 0.5 Mg PO DAILY I have reviewed the current psychotropics carefully including drug interactions. Risk benefit ratio favors no change other than as noted in my dictated progress note. Diagnosis: Problems: (1) Anxiety disorder (2) Dementia in Alzheimer's disease with delusions (3) Dementia in Alzheimer's disease with delusions (4) Dementia in Alzheimer's disease with depression (5) Dementia, vascular, with delusions (6) Dementia, vascular, with depression (7) Impulse control disorder EVE BLANK MD Mar 14, 2018 19:50
[2018-03-15 05:48] VITALS: BP 124/57
[2018-03-15 07:36] LABS: BASO # 0.1 x10^3/uL (0.0-0.2); BASO % 1 % (0-3); EOS # 0.3 x10^3/uL (0.0-0.7); EOS % 4 % (0-3); HEMATOCRIT 39.6 % (39.0-53.0); HEMOGLOBIN 13.4 g/dL (13.0-17.5); LYMPH # 1.4 x10^3/uL (1.0-4.8); LYMPH % 18 % (24-48); MEAN CORPUSCULAR HEMOGLOBIN 31 pg (25-35); MEAN CORPUSCULAR HGB CONC 34 g/dL (31-37); MEAN CORPUSCULAR VOLUME 90 fL (79-100); MONO # 0.9 x10^3/uL (0.0-1.1); MONO % 11 % (0-9); NEUT # 5.3 x10^3uL (1.8-7.7); NEUT % 66 % (31-73); PLATELET COUNT 219 x10^3/uL (140-400); RED BLOOD COUNT 4.38 x10^6/uL (4.30-5.70); RED CELL DISTRIBUTION WIDTH 12.8 % (11.5-14.5)
[2018-03-15 07:38] LABS: ALBUMIN 3.3 g/dL (3.4-5.0); ALBUMIN/GLOBULIN RATIO 0.9 (1.0-1.7); CALCIUM 8.9 mg/dL (8.5-10.1); GFR 75.7; POTASSIUM 3.8 mmol/L (3.5-5.1); TOTAL BILIRUBIN 0.4 mg/dL (0.2-1.0)
[2018-03-15] MEDS: clonazePAM 0.5 MG TABLET PO SCH ×3 (09:55→19:31)
[2018-03-15] MEDS: ASPIRIN 81 MG TAB.CHEW PO SCH (09:55)
[2018-03-15] MEDS: risperiDONE 0.25 MG TABLET. PO SCH ×2 (09:55→14:12)
[2018-03-15] MEDS: POLYETHYLENE GLYCOL 3350 17 GM PACKET. PO SCH (09:55)
[2018-03-15] MEDS: MEMANTINE 10 MG TABLET. PO SCH ×2 (09:55→19:30)
[2018-03-15] MEDS: VENLAFAXINE XR 37.5 MG CAP.ER.24H. PO SCH (09:55)
[2018-03-15] MEDS: MULTIVITAMIN with MINERAL TABLET. PO SCH (09:55)
[2018-03-15] MEDS: lamoTRIgine 100 MG TABLET. PO SCH (09:55)
[2018-03-15 16:32] VITALS: BP 120/77
[2018-03-15] MEDS: MIRTAZAPINE 7.5 MG TABLET. PO SCH (19:30)
[2018-03-15] MEDS: traZODone 50 MG TABLET. PO PRN (19:31)
--- NOTE | 2018-03-15 20:45 | PDOC ---
Exam Note: Tadeo Note: Please also refer to the separate dictated note~for this date of service dictated separately.~Patient seen individually. Discussed the patient with Nursing staff reviewed the chart.~Reviewed interim history and current functioning. Reviewed vital signs,~Labs/ Radiology~and current medications noted below. Continue current treatment with the changes noted in the dictated addendum note Assessment: Vital Signs: Vital Signs Date Time Temp Pulse Resp B/P (MAP) Pulse Ox O2 Delivery O2 Flow Rate FiO2 03/15/18 16:32 98.6 102 20 120/77 (91) 95 Room Air I&O Intake and Output 03/15/18 07:00 Intake Total 1080 ml Balance 1080 ml Intake Oral 1080 ml # Bowel Movements 1 Labs: Laboratory Tests Test 03/15/18 06:49 White Blood Count 8.0 x10^3/uL (4.0-11.0) Red Blood Count 4.38 x10^6/uL (4.30-5.70) Hemoglobin 13.4 g/dL (13.0-17.5) Hematocrit 39.6 % (39.0-53.0) Mean Corpuscular Volume 90 fL (79-100) Mean Corpuscular Hemoglobin 31 pg (25-35) Mean Corpuscular Hemoglobin Concent 34 g/dL (31-37) Red Cell Distribution Width 12.8 % (11.5-14.5) Platelet Count 219 x10^3/uL (140-400) Neutrophils (%) (Auto) 66 % (31-73) Lymphocytes (%) (Auto) 18 % (24-48) L Monocytes (%) (Auto) 11 % (0-9) H Eosinophils (%) (Auto) 4 % (0-3) H Basophils (%) (Auto) 1 % (0-3) Neutrophils # (Auto) 5.3 x10^3uL (1.8-7.7) Lymphocytes # (Auto) 1.4 x10^3/uL (1.0-4.8) Monocytes # (Auto) 0.9 x10^3/uL (0.0-1.1) Eosinophils # (Auto) 0.3 x10^3/uL (0.0-0.7) Basophils # (Auto) 0.1 x10^3/uL (0.0-0.2) Sodium Level 146 mmol/L (136-145) H Potassium Level 3.8 mmol/L (3.5-5.1) Chloride Level 108 mmol/L (98-107) H Carbon Dioxide Level 32 mmol/L (21-32) Anion Gap 6 (6-14) Blood Urea Nitrogen 22 mg/dL (8-26) Creatinine 1.0 mg/dL (0.7-1.3) Estimated GFR (Cockcroft-Gault) 75.7 BUN/Creatinine Ratio 22 (6-20) H Glucose Level 106 mg/dL (70-99) H Calcium Level 8.9 mg/dL (8.5-10.1) Total Bilirubin 0.4 mg/dL (0.2-1.0) Aspartate Amino Transferase (AST) 49 U/L (15-37) H Alanine Aminotransferase (ALT) 38 U/L (16-63) Alkaline Phosphatase 72 U/L (46-116) Total Protein 7.0 g/dL (6.4-8.2) Albumin 3.3 g/dL (3.4-5.0) L Albumin/Globulin Ratio 0.9 (1.0-1.7) L Current Medications: Meds: Current Medications Aspirin (Children'S Aspirin) 81 mg DAILYWBKFT PO Last administered on 03/15/18at 09:55; Start 03/11/18 at 08:00 Lamotrigine (LaMICtal) 75 mg DAILY PO ; Start 03/11/18 at 09:00; Stop 03/11/18 at 09:00; Status DC Memantine (Namenda) 10 mg BID PO Last administered on 03/15/18at 19:30; Start at 21:00 Multivitamins/ Calcium (Thera-M Plus) 1 tab DAILY PO Last administered on at 09:55; Start 03/11/18 at 09:00 Polyethylene Glycol (miraLAX) 17 gm DAILY PO Last administered on 03/15/18at 09: 55; Start 03/11/18 at 09:00 Risperidone (RisperDAL) 1 mg DAILY@1400 PO ; Start 03/11/18 at 14:00; Stop 03/11 at 14:00; Status DC Risperidone (RisperDAL) 0.5 mg DAILY PO ; Start 03/11/18 at 09:00; Stop at 09:00; Status DC Venlafaxine HCl (Effexor Xr) 75 mg DAILY PO ; Start 03/11/18 at 09:00; Stop at 09:00; Status DC Acetaminophen (Tylenol) 650 mg PRN Q6HRS PRN PO PAIN / TEMP; Start 03/10/18 at 15:00 Multi-Ingredient Ointment (Analgesic [place]) 1 teri PRN QID PRN TP MUSCLE PAIN; Start 03/10/18 at 15:00 Al Hydroxide/Mg Hydroxide (Mylanta Plus Xs) 15 ml PRN AFTMEALHC PRN PO DYSPEPSIA; Start 03/10/18 at 15:00 Magnesium Hydroxide (Milk Of Magnesia) 2,400 mg PRN QHS PRN PO CONSTIPATION; Start 03/10/18 at 15:00 Risperidone (RisperDAL) 0.5 mg BID@0900,1400 PO Last administered on 03/14/18at 14:51; Start 03/11/18 at 09:00; Stop 03/14/18 at 15:53; Status DC Olanzapine (ZyPREXA ZYDIS) 2.5 mg PRN Q2HR PRN PO agitation/aggression/ psychosis Last administered on 03/15/18at 17:51; Start 03/10/18 at 18:30 Lamotrigine (LaMICtal) 100 mg DAILY PO Last administered on 03/15/18at 09:55; Start 03/11/18 at 09:00; Stop 03/15/18 at 11:00; Status DC Venlafaxine HCl (Effexor Xr) 112.5 mg DAILY PO Last administered on 03/15/18at 09 :55; Start 03/11/18 at 09:00 Mirtazapine (Remeron) 7.5 mg QHS PO Last administered on 03/15/18 19:30; Start 03/11/18 at 21:00 Trazodone HCl (Desyrel) 50 mg PRN QHS PRN PO INSOMNIA Last administered on 19:31; Start 03/11/18 at 20:30 Clonazepam (KlonoPIN) 0.5 mg TID PO Last administered on 03/15/18at 14:12; Start 03/12/18 at 14:00; Stop 03/15/18 at 18:46; Status DC Vitamin D (Vitamin D3) 50,000 unit WEEKLY PO Last administered on 03/13/18at 17: 23; Start 03/13/18 at 15:15 Risperidone (RisperDAL) 0.25 mg BID92 PO Last administered on 03/15/18at 14:12; Start 03/15/18 at 09:00 Lamotrigine (LaMICtal) 150 mg DAILY PO ; Start 03/16/18 at 09:00 Clonazepam (KlonoPIN) 0.5 mg BID PO Last administered on 03/15/18at 19:31; Start 03/15/18 at 21:00 Divalproex Sodium (Depakote Sprinkles) 125 mg 0900,1700 PO ; Start 03/16/18 at 09 :00 Active Scripts Active Reported Multivitamins (Multivitamin) 1 Each Tablet 1 Each PO DAILY Aspirin 81 Mg Tab.chew 81 Mg PO DAILY Risperidone 1 Mg Tablet 1 Mg PO DAILY@1400 Venlafaxine Hcl Er (Venlafaxine Hcl) 75 Mg Cap.er.24h 75 Mg PO DAILY Namenda (Memantine Hcl) 10 Mg Tablet 10 Mg PO BID Lamotrigine 25 Mg Tablet 75 Mg PO DAILY Miralax (Polyethylene Glycol 3350) 17 Gm Powd.pack 17 Gm PO DAILY Risperdal (Risperidone) 0.5 Mg Tablet 0.5 Mg PO DAILY I have reviewed the current psychotropics carefully including drug interactions. Risk benefit ratio favors no change other than as noted in my dictated progress note. Diagnosis: Problems: (1) Anxiety disorder (2) Dementia in Alzheimer's disease with delusions (3) Dementia in Alzheimer's disease with delusions (4) Dementia in Alzheimer's disease with depression (5) Dementia, vascular, with delusions (6) Dementia, vascular, with depression (7) Impulse control disorder EVE BLANK MD Mar 15, 2018 20:45
--- NOTE | 2018-03-15 21:03 | PN ---
DATE: 03/13/2018 This is a late entry for 03/13/2018 covers elements not covered in my initial note of 03/13/2018. SUBJECTIVE: I met with the patient in the evening. Overall, the patient remains confused, was getting his EEG. Family indicated that he has had a fairly rapid decline recently. Reportedly, a week ago, he took some children to the games. He is now unable to feed himself. REVIEW OF SYSTEMS: No CV, , pulmonary, eye, ENT system symptoms on review. Reliability poor. MENTAL STATUS EXAM: Oriented to himself. Insight, judgment, recent and remote memory, attention, concentration, fund of knowledge poor, consistent with his diagnosis mentioned in my initial note. PLAN: Continue current psychotropics and Klonopin initiated by Dr. Guardado. May reduce the Risperdal further. He has been on one-on-one status because of fall risk. EVE BLANK MD DR: NBA/ariana JOB#: [id number] / [id number]
--- NOTE | 2018-03-16 05:27 | PN ---
DATE: 03/12/2018 This late entry 03/12/2018 covers elements not covered in my initial 03/12/2018. SUBJECTIVE: I met with the patient in the evening. The patient slept 4-1/2 hours previous evening, had a seizure-like episode in the morning. Nursing staff had called me as an emergency, and we have consulted Dr. Guardado, Neurology, for this, but he spit out his medications. EEG is scheduled for 03/13/2018. He started on Klonopin 0.[address] Guardado for seizures. REVIEW OF SYSTEMS: Ambulates ad chiqui. No CV, , pulmonary, eye, ENT system symptoms on review. Reliability poor. MENTAL STATUS EXAM: Oriented to self. Insight, judgment, recent and remote memory, attention, concentration, fund of knowledge poor, consistent with his diagnosis mentioned in my initial note. PLAN: Continue current psychotropics. Defer workup for seizures to Dr. Guardado. Risperdal was reduced. Parkinsonian facial expression is better and we might reduce it further. MAN Toño BLANK MD DR: NBA/ariana JOB#: [id number] / [id number]
[2018-03-16 06:02] VITALS: BP 115/60
--- NOTE | 2018-03-16 07:08 | EEG ---
DATE OF SERVICE: Electroencephalogram Report REFERRING PHYSICIAN: Dr. Franco. HISTORY OF PRESENT ILLNESS: This is a 62-year-old right handed male, who was referred for an EEG to rule out central nervous system pathology or seizure. The patient has had intermittent myoclonic type seizures for several years, aggravated by agitation and behavior disturbances. However, on occasions the myoclonic movements may last longer up to 30 minutes according to his . During this hospitalization, the patient has witnessed to have myoclonic type movement of the upper and lower extremities. There is no loss of consciousness, bowel or bladder dysfunctions during these spells. EEG DESCRIPTION: This is a digital 18-channel EEG was performed using the standard international 10-20 electrode placement system. Photic stimulation was used as an activation procedure and hyperventilation was not performed. The patient was not sleep deprived. The patient was not sedated. EEG opened with the patient in the drowsy state, characterized by slowing of the posterior dominant rhythm ____. The patient has theta activities at 5-6 cycles per second with an amplitude of 15-25 microvolts. It was bilaterally symmetric without attenuation with eye opening. The background was contaminated with excessive movement and muscle artifacts. Photic stimulation produced no driving responses and hyperventilation was not performed. The background shows diffuse slowing of theta activities at frequency of 5-6 cycles per second. The patient achieved stage I and early stage II sleep characterized by further slowing of the posterior dominant rhythm and attenuation of the amplitudes. IMPRESSION: This is a moderately abnormal waking and drowsy EEG because of slowing of the posterior dominant rhythm and diffuse slowing of the background activities. These findings are suggestive of diffuse cerebral dysfunction. No epileptiform activities were seen. From EEG findings, the patient does not have any evidence of Creutzfeldt-Veto disease. RECOMMENDATIONS: 1. Continue with current medical and psychiatric care. 2. We will discuss with Dr. Franco to start the patient on Depakote for myoclonic jerking movements. M Etienne CALLES MD DR: ANAID/ariana JOB#: [id number] / [id number]
[2018-03-16] MEDS: POLYETHYLENE GLYCOL 3350 17 GM PACKET. PO SCH (08:40)
[2018-03-16] MEDS: MULTIVITAMIN with MINERAL TABLET. PO SCH (08:40)
[2018-03-16] MEDS: VENLAFAXINE XR 37.5 MG CAP.ER.24H. PO SCH (08:41)
[2018-03-16] MEDS: risperiDONE 0.25 MG TABLET. PO SCH ×3 (08:41→19:33)
[2018-03-16] MEDS: ASPIRIN 81 MG TAB.CHEW PO SCH (08:41)
[2018-03-16] MEDS: MEMANTINE 10 MG TABLET. PO SCH ×2 (08:41→19:31)
[2018-03-16] MEDS: lamoTRIgine 150 MG TABLET. PO SCH (08:43)
[2018-03-16] MEDS: clonazePAM 0.5 MG TABLET PO SCH ×2 (08:43→19:33)
[2018-03-16] MEDS: DIVALPROEX 125 MG CAP.SPRINK PO SCH ×2 (08:43→17:55)
--- NOTE | 2018-03-16 09:20 | PN ---
DATE: 03/11/2018 This late entry 03/11, covers elements not covered in my initial note 03/11. SUBJECTIVE: I met with the patient in the evening and staffed at treatment team meeting with the entire team in the morning. The recent note I had dictated on the patient is unavailable in the electronic record system and I am redictating the note. The patient remains on 1-on-1 status due to his fall risk. He slept just half hour and at night was wandering and wandering during the day. He had a seizure-like activity in the morning, fell on his hands and knees. Dr. Guardado has been consulted for Neurology. EEG is being completed and he is on 1-on-1. Dr. Tejada wonders about Creutzfeldt-Veto disease. We will defer to Dr. Guardado. REVIEW OF SYSTEMS: No CV, , pulmonary, eye, ENT system symptoms on review. Reliability poor. MENTAL STATUS EXAM: Oriented to himself. Insight, judgment, recent and remote memory, attention, concentration, fund of knowledge poor, consistent with his diagnosis mentioned in my initial note. PLAN: Continue current psychotropics. Await neurology workup. Make further changes as clinically indicated. MAN Toño BLANK MD DR: NBA/ariana JOB#: [id number] / [id number]
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
--- NOTE | 2018-03-16 15:52 | PN ---
DATE: 03/12/2018 SUBJECTIVE: The patient continues to have intermittent myoclonic jerking movements of the upper extremities, lasted a few seconds and aggravated by agitation. There is no history of recent falls or loss of consciousness, bowel or bladder dysfunction during the episodes. The patient is somewhat restless and not able to respond to verbal commands at this point. OBJECTIVE: GENERAL: Well-developed, well-nourished white male, not in acute distress. VITAL SIGNS: Blood pressure 102/69, respiratory rate 19, pulse is 76, temperature 97.7, oxygen saturation 97% on room air. HEENT: Normocephalic, atraumatic, otherwise unremarkable. NECK: Supple, negative for carotid bruit, lymphadenopathy or thyromegaly. LUNGS: Clear to A and P. CARDIOVASCULAR: Regular rate and rhythm, normal S1, S2. ABDOMEN: Soft. EXTREMITIES: Negative for cyanosis, clubbing or edema. NEUROLOGICAL EXAM: Mental Status: The patient is awake and he answers the questions, yes or no, but unable to respond to simple 1 step commands. He is restless and somewhat resistant to further mental status evaluation. Cranial nerves, no facial motor or sensory deficits. Pupils are reactive to light and accommodation. Motor Examination: No focal muscle bulk was seen. The tone is increased in the upper and lower extremities. No resting tremor or myoclonic jerking movements while he is resting. Motor examination otherwise the patient resistance to manual muscle exam. Sensory examination revealed normal pinprick and light touch senses. Deep tendon reflexes were symmetric and hypoactive with absent Achilles responses. Gait not tested at this time. IMPRESSION: 1. Progressive dementia, probably of Alzheimer type. 2. Behavioral disturbances. 3. Intermittent myoclonic jerking type movement, aggravated by restlessness and agitations. 4. ____ hyperlipidemia. RECOMMENDATIONS: 1. Continue with current psychiatric and medical care. 2. Try small dose of clonazepam 0.5 mg twice daily for myoclonic type movement. 3. Await EEG. 4. We will contact the family members for further evaluation. M Etienne CALLES MD DR: ANAID/ariana JOB#: [id number] / [id number]
--- NOTE | 2018-03-16 15:53 | PN ---
DATE: 03/16/2018 SUBJECTIVE: There are no new medical or neurological complaints have been reported; however, the patient continues to have intermittent myoclonic jerking movements of the upper and lower extremities, aggravated by agitation. There is no history of recent falls or head injuries. The patient is going to have an EEG tonight. I have a chance to talk to his , Debra. She told me that his mental status changes and dementia were diagnosed in 2008 when they were in [place]. His symptoms of mental status has been declining in the last year or so. However, his jerking movement has been worsening since 01/2018. He described the cluster in the morning and sometimes may last 30 minutes. OBJECTIVE: GENERAL: Well-developed, well-nourished male, not in acute distress. VITAL SIGNS: Blood pressure 105/72, respiratory rate 20, pulse is 73, temperature 97.8, oxygen saturation is 94% on room air. HEENT: Normocephalic, atraumatic, otherwise unremarkable. NECK: Supple. Negative for carotid bruit, lymphadenopathy, or thyromegaly. LUNGS: Clear to A and P. CARDIOVASCULAR: Regular rhythm, normal S1, S2. ABDOMEN: Soft. Bowel sounds positive. EXTREMITIES: Negative for cyanosis, clubbing, or pitting edema. NEUROLOGIC: The patient is awake and he answers questions inappropriately. He is restless and difficult to communicate. Cranial nerves are grossly intact. No focal motor deficit. The tone is increased in the lower extremities. The patient has intermittent myoclonic jerking movements, lasted few minutes, mainly when agitated and when he tried to stand up against his will. Otherwise, physical examination for the further evaluation of neurological examination is limited at this time because of restlessness. IMPRESSION: 1. Intermittent myoclonic jerking movements. 2. Slowly progressive dementia of Alzheimer type and possible vascular type. 3. Hyperlipidemia. 4. Behavior disturbances. RECOMMENDATIONS: 1. Await electroencephalogram tonight. 2. Continue with current psychiatric and medical care. M Etienne CALLES MD DR: ANAID/ariana JOB#: [id number] / [id number]
[2018-03-16 16:52] VITALS: BP 113/62
[2018-03-16] MEDS: MIRTAZAPINE 7.5 MG TABLET. PO SCH (19:31)
[2018-03-16] MEDS: traZODone 50 MG TABLET. PO PRN (19:33)
--- NOTE | 2018-03-16 20:48 | PDOC ---
Exam Note: Tadeo Note: Please also refer to the separate dictated note~for this date of service dictated separately.~Patient seen individually. Discussed the patient with Nursing staff reviewed the chart.~Reviewed interim history and current functioning. Reviewed vital signs,~Labs/ Radiology~and current medications noted below. Continue current treatment with the changes noted in the dictated addendum note Assessment: Vital Signs: Vital Signs Date Time Temp Pulse Resp B/P (MAP) Pulse Ox O2 Delivery O2 Flow Rate FiO2 03/16/18 16:52 97.3 101 20 113/62 (79) 100 03/15/18 16:32 Room Air I&O Intake and Output 03/16/18 07:00 Intake Total 480 ml Balance 480 ml Intake Oral 480 ml Current Medications: Meds: Current Medications Aspirin (Children'S Aspirin) 81 mg DAILYWBKFT PO Last administered on 03/16/18at 08:41; Start 03/11/18 at 08:00 Lamotrigine (LaMICtal) 75 mg DAILY PO ; Start 03/11/18 at 09:00; Stop 03/11/18 at 09:00; Status DC Memantine (Namenda) 10 mg BID PO Last administered on 03/16/18at 19:31; Start at 21:00 Multivitamins/ Calcium (Thera-M Plus) 1 tab DAILY PO Last administered on at 08:40; Start 03/11/18 at 09:00 Polyethylene Glycol (miraLAX) 17 gm DAILY PO Last administered on 03/16/18at 08: 40; Start 03/11/18 at 09:00 Risperidone (RisperDAL) 1 mg DAILY@1400 PO ; Start 03/11/18 at 14:00; Stop 03/11 at 14:00; Status DC Risperidone (RisperDAL) 0.5 mg DAILY PO ; Start 03/11/18 at 09:00; Stop at 09:00; Status DC Venlafaxine HCl (Effexor Xr) 75 mg DAILY PO ; Start 03/11/18 at 09:00; Stop at 09:00; Status DC Acetaminophen (Tylenol) 650 mg PRN Q6HRS PRN PO PAIN / TEMP; Start 03/10/18 at 15:00 Multi-Ingredient Ointment (Analgesic [place]) 1 teri PRN QID PRN TP MUSCLE PAIN; Start 03/10/18 at 15:00 Al Hydroxide/Mg Hydroxide (Mylanta Plus Xs) 15 ml PRN AFTMEALHC PRN PO DYSPEPSIA; Start 03/10/18 at 15:00 Magnesium Hydroxide (Milk Of Magnesia) 2,400 mg PRN QHS PRN PO CONSTIPATION; Start 03/10/18 at 15:00 Risperidone (RisperDAL) 0.5 mg BID@0900,1400 PO Last administered on 03/14/18 14:51; Start 03/11/18 at 09:00; Stop 03/14/18 at 15:53; Status DC Olanzapine (ZyPREXA ZYDIS) 2.5 mg PRN Q2HR PRN PO agitation/aggression/ psychosis Last administered on 03/15/18 17:51; Start 03/10/18 at 18:30 Lamotrigine (LaMICtal) 100 mg DAILY PO Last administered on 03/15/18 09:55; Start 03/11/18 at 09:00; Stop 03/15/18 at 11:00; Status DC Venlafaxine HCl (Effexor Xr) 112.5 mg DAILY PO Last administered on 03/16/18 08 :41; Start 03/11/18 at 09:00 Mirtazapine (Remeron) 7.5 mg QHS PO Last administered on 03/16/18 19:31; Start 03/11/18 at 21:00 Trazodone HCl (Desyrel) 50 mg PRN QHS PRN PO INSOMNIA Last administered on 19:33; Start 03/11/18 at 20:30 Clonazepam (KlonoPIN) 0.5 mg TID PO Last administered on 03/15/18 14:12; Start 03/12/18 at 14:00; Stop 03/15/18 at 18:46; Status DC Vitamin D (Vitamin D3) 50,000 unit WEEKLY PO Last administered on 03/13/18 17: 23; Start 03/13/18 at 15:15 Risperidone (RisperDAL) 0.25 mg BID92 PO Last administered on 03/16/18 13:57; Start 03/15/18 at 09:00; Stop 03/16/18 at 19:00; Status DC Lamotrigine (LaMICtal) 150 mg DAILY PO Last administered on 03/16/18 08:43; Start 03/16/18 at 09:00 Clonazepam (KlonoPIN) 0.5 mg BID PO Last administered on 03/16/18at 19:33; Start 03/15/18 at 21:00 Divalproex Sodium (Depakote Sprinkles) 125 mg 0900,1700 PO Last administered on 03/16/18 17:55; Start 03/16/18 at 09:00 Risperidone (RisperDAL) 0.25 mg HS PO Last administered on 03/16/18 19:33; Start 03/16/18 at 21:00 Active Scripts Active Reported Multivitamins (Multivitamin) 1 Each Tablet 1 Each PO DAILY Aspirin 81 Mg Tab.chew 81 Mg PO DAILY Risperidone 1 Mg Tablet 1 Mg PO DAILY@1400 Venlafaxine Hcl Er (Venlafaxine Hcl) 75 Mg Cap.er.24h 75 Mg PO DAILY Namenda (Memantine Hcl) 10 Mg Tablet 10 Mg PO BID Lamotrigine 25 Mg Tablet 75 Mg PO DAILY Miralax (Polyethylene Glycol 3350) 17 Gm Powd.pack 17 Gm PO DAILY Risperdal (Risperidone) 0.5 Mg Tablet 0.5 Mg PO DAILY I have reviewed the current psychotropics carefully including drug interactions. Risk benefit ratio favors no change other than as noted in my dictated progress note. Diagnosis: Problems: (1) Anxiety disorder (2) Dementia in Alzheimer's disease with delusions (3) Dementia in Alzheimer's disease with delusions (4) Dementia in Alzheimer's disease with depression (5) Dementia, vascular, with delusions (6) Dementia, vascular, with depression (7) Impulse control disorder EVE BLANK MD Mar 16, 2018 20:48
--- NOTE | 2018-03-17 01:54 | PN ---
DATE: 03/16/2018 This note covers elements not covered in my initial note of 03/16/2018. SUBJECTIVE: I met with the patient in the evening. Overall, the patient remains on one-on-one status. Appetite is fair. He has been feeding himself and attempting to walk, all of which is an improvement. REVIEW OF SYSTEMS: Ambulation impaired. No CV, , pulmonary, eye, ENT system symptoms on review. Reliability poor. MENTAL STATUS EXAM: Oriented to himself. Insight, judgment, recent and remote memory, attention, concentration, fund of knowledge poor, consistent with his diagnosis mentioned in my initial note. PLAN: Reduce Risperdal from 0.25 mg b.i.d. to 0.25 mg at bedtime. Continue rest of the psychotropics unchanged. MAN Toño BLANK MD DR: NBA/ariana JOB#: [id number] / [id number]
--- NOTE | 2018-03-17 04:18 | PN ---
DATE: 03/15/2018 This late entry 03/15/2018 covers elements not covered in my initial note 03/15/2018. SUBJECTIVE: I met with the patient in the evening and also with his . Reviewed his history, progress. Previous evening, per nursing report, he was quite restless. Received p.r.n., trazodone. Gait is somewhat shuffling. Also discussed the patient with Dr. Guardado who was on the unit from a neurology standpoint. Reportedly, EEG was unremarkable, not reflective of Creutzfeldt-Veto disease as was initially suspected. is concerned about sedation and question was whether the Klonopin started for the seizure-like activity could be contributing to this. Dr. Guardado agreed that we could gradually reduce the Klonopin, initiate Depakote instead, which might help additionally from a psychiatric standpoint. REVIEW OF SYSTEMS: Ambulation impaired. No CV, , eye, ENT or pulmonary system symptoms on review. Reliability poor. MENTAL STATUS EXAM: Oriented to himself. Insight, judgment, recent and remote memory, attention, concentration, fund of knowledge poor, consistent with his diagnosis mentioned in my initial note. PLAN: Reduce Klonopin to 0.5 mg twice a day, start Depakote Sprinkles 125 mg twice a day. Check CBC, CMP, valproic acid level, ammonia level in 3 days. Continue rest unchanged. MAN Toño BLANK MD DR: NBA/ariana JOB#: [id number] / [id number]
[2018-03-17 06:14] VITALS: BP 121/65
[2018-03-17] MEDS: POLYETHYLENE GLYCOL 3350 17 GM PACKET. PO SCH (08:07)
[2018-03-17] MEDS: VENLAFAXINE XR 37.5 MG CAP.ER.24H. PO SCH (08:08)
[2018-03-17] MEDS: DIVALPROEX 125 MG CAP.SPRINK PO SCH ×2 (08:08→16:27)
[2018-03-17] MEDS: lamoTRIgine 150 MG TABLET. PO SCH (08:08)
[2018-03-17] MEDS: ASPIRIN 81 MG TAB.CHEW PO SCH (08:08)
[2018-03-17] MEDS: MEMANTINE 10 MG TABLET. PO SCH ×2 (08:08→19:47)
[2018-03-17] MEDS: MULTIVITAMIN with MINERAL TABLET. PO SCH (08:09)
[2018-03-17] MEDS: clonazePAM 0.5 MG TABLET PO SCH ×2 (08:10→19:47)
[2018-03-17 16:12] VITALS: BP 101/68
[2018-03-17] MEDS: risperiDONE 0.25 MG TABLET. PO SCH (19:47)
[2018-03-17] MEDS: MIRTAZAPINE 7.5 MG TABLET. PO SCH (19:47)
[2018-03-17] MEDS: traZODone 50 MG TABLET. PO PRN (19:47)
--- NOTE | 2018-03-17 20:43 | PDOC ---
Exam Note: Tadeo Note: Please also refer to the separate dictated note~for this date of service dictated separately.~Patient seen individually. Discussed the patient with Nursing staff reviewed the chart.~Reviewed interim history and current functioning. Reviewed vital signs,~Labs/ Radiology~and current medications noted below. Continue current treatment with the changes noted in the dictated addendum note Assessment: Vital Signs: Vital Signs Date Time Temp Pulse Resp B/P (MAP) Pulse Ox O2 Delivery O2 Flow Rate FiO2 03/17/18 16:12 97.6 78 20 101/68 (79) 95 03/15/18 16:32 Room Air I&O Intake and Output 03/17/18 07:00 Intake Total 480 ml Balance 480 ml Intake Oral 480 ml Current Medications: Meds: Current Medications Aspirin (Children'S Aspirin) 81 mg DAILYWBKFT PO Last administered on 03/17/18at 08:08; Start 03/11/18 at 08:00 Lamotrigine (LaMICtal) 75 mg DAILY PO ; Start 03/11/18 at 09:00; Stop 03/11/18 at 09:00; Status DC Memantine (Namenda) 10 mg BID PO Last administered on 03/17/18at 19:47; Start at 21:00 Multivitamins/ Calcium (Thera-M Plus) 1 tab DAILY PO Last administered on at 08:09; Start 03/11/18 at 09:00 Polyethylene Glycol (miraLAX) 17 gm DAILY PO Last administered on 03/17/18at 08: 07; Start 03/11/18 at 09:00 Risperidone (RisperDAL) 1 mg DAILY@1400 PO ; Start 03/11/18 at 14:00; Stop 03/11 at 14:00; Status DC Risperidone (RisperDAL) 0.5 mg DAILY PO ; Start 03/11/18 at 09:00; Stop at 09:00; Status DC Venlafaxine HCl (Effexor Xr) 75 mg DAILY PO ; Start 03/11/18 at 09:00; Stop at 09:00; Status DC Acetaminophen (Tylenol) 650 mg PRN Q6HRS PRN PO PAIN / TEMP; Start 03/10/18 at 15:00 Multi-Ingredient Ointment (Analgesic [place]) 1 teri PRN QID PRN TP MUSCLE PAIN; Start 03/10/18 at 15:00 Al Hydroxide/Mg Hydroxide (Mylanta Plus Xs) 15 ml PRN AFTMEALHC PRN PO DYSPEPSIA; Start 03/10/18 at 15:00 Magnesium Hydroxide (Milk Of Magnesia) 2,400 mg PRN QHS PRN PO CONSTIPATION; Start 03/10/18 at 15:00 Risperidone (RisperDAL) 0.5 mg BID@0900,1400 PO Last administered on 03/14/18 14:51; Start 03/11/18 at 09:00; Stop 03/14/18 at 15:53; Status DC Olanzapine (ZyPREXA ZYDIS) 2.5 mg PRN Q2HR PRN PO agitation/aggression/ psychosis Last administered on 03/15/18 17:51; Start 03/10/18 at 18:30 Lamotrigine (LaMICtal) 100 mg DAILY PO Last administered on 03/15/18at 09:55; Start 03/11/18 at 09:00; Stop 03/15/18 at 11:00; Status DC Venlafaxine HCl (Effexor Xr) 112.5 mg DAILY PO Last administered on 03/17/18 08 :08; Start 03/11/18 at 09:00 Mirtazapine (Remeron) 7.5 mg QHS PO Last administered on 03/17/18 19:47; Start 03/11/18 at 21:00 Trazodone HCl (Desyrel) 50 mg PRN QHS PRN PO INSOMNIA Last administered on at 19:47; Start 03/11/18 at 20:30 Clonazepam (KlonoPIN) 0.5 mg TID PO Last administered on 03/15/18 14:12; Start 03/12/18 at 14:00; Stop 03/15/18 at 18:46; Status DC Vitamin D (Vitamin D3) 50,000 unit WEEKLY PO Last administered on 03/13/18at 17: 23; Start 03/13/18 at 15:15 Risperidone (RisperDAL) 0.25 mg BID92 PO Last administered on 03/16/18 13:57; Start 03/15/18 at 09:00; Stop 03/16/18 at 19:00; Status DC Lamotrigine (LaMICtal) 150 mg DAILY PO Last administered on 03/17/18 08:08; Start 03/16/18 at 09:00 Clonazepam (KlonoPIN) 0.5 mg BID PO Last administered on 03/17/18at 19:47; Start 03/15/18 at 21:00 Divalproex Sodium (Depakote Sprinkles) 125 mg 0900,1700 PO Last administered on 03/17/18at 16:27; Start 03/16/18 at 09:00 Risperidone (RisperDAL) 0.25 mg HS PO Last administered on 03/17/18 19:47; Start 03/16/18 at 21:00 Active Scripts Active Reported Multivitamins (Multivitamin) 1 Each Tablet 1 Each PO DAILY Aspirin 81 Mg Tab.chew 81 Mg PO DAILY Risperidone 1 Mg Tablet 1 Mg PO DAILY@1400 Venlafaxine Hcl Er (Venlafaxine Hcl) 75 Mg Cap.er.24h 75 Mg PO DAILY Namenda (Memantine Hcl) 10 Mg Tablet 10 Mg PO BID Lamotrigine 25 Mg Tablet 75 Mg PO DAILY Miralax (Polyethylene Glycol 3350) 17 Gm Powd.pack 17 Gm PO DAILY Risperdal (Risperidone) 0.5 Mg Tablet 0.5 Mg PO DAILY I have reviewed the current psychotropics carefully including drug interactions. Risk benefit ratio favors no change other than as noted in my dictated progress note. Diagnosis: Problems: (1) Anxiety disorder (2) Dementia in Alzheimer's disease with delusions (3) Dementia in Alzheimer's disease with delusions (4) Dementia in Alzheimer's disease with depression (5) Dementia, vascular, with delusions (6) Dementia, vascular, with depression (7) Impulse control disorder EVE BLANK MD Mar 17, 2018 20:43
[2018-03-18 06:13] VITALS: BP 121/65
[2018-03-18] MEDS: ASPIRIN 81 MG TAB.CHEW PO SCH (09:55)
[2018-03-18] MEDS: MEMANTINE 10 MG TABLET. PO SCH ×2 (09:55→20:17)
[2018-03-18] MEDS: VENLAFAXINE XR 37.5 MG CAP.ER.24H. PO SCH (09:56)
[2018-03-18] MEDS: POLYETHYLENE GLYCOL 3350 17 GM PACKET. PO SCH (09:56)
[2018-03-18] MEDS: DIVALPROEX 125 MG CAP.SPRINK PO SCH ×2 (09:56→17:20)
[2018-03-18] MEDS: MULTIVITAMIN with MINERAL TABLET. PO SCH (09:56)
[2018-03-18] MEDS: lamoTRIgine 150 MG TABLET. PO SCH (09:56)
[2018-03-18] MEDS: clonazePAM 0.5 MG TABLET PO SCH (09:57)
[2018-03-18 16:16] VITALS: BP 112/68
[2018-03-18] MEDS: traZODone 50 MG TABLET. PO PRN (20:16)
[2018-03-18] MEDS: MIRTAZAPINE 7.5 MG TABLET. PO SCH (20:17)
[2018-03-18] MEDS: risperiDONE 0.25 MG TABLET. PO SCH (20:17)
--- NOTE | 2018-03-18 22:22 | PDOC ---
Exam Note: Tadeo Note: Please also refer to the separate dictated note~for this date of service dictated separately.~Patient seen individually. Discussed the patient with Nursing staff reviewed the chart.~Reviewed interim history and current functioning. Reviewed vital signs,~Labs/ Radiology~and current medications noted below. Continue current treatment with the changes noted in the dictated addendum note Assessment: Vital Signs: Vital Signs Date Time Temp Pulse Resp B/P (MAP) Pulse Ox O2 Delivery O2 Flow Rate FiO2 03/18/18 16:16 97.9 74 18 112/68 (83) 97 Room Air I&O Intake and Output 03/18/18 07:00 Intake Total 1120 ml Balance 1120 ml Intake Oral 1120 ml # Voids 1 Current Medications: Meds: Current Medications Aspirin (Children'S Aspirin) 81 mg DAILYWBKFT PO Last administered on 03/18/18at 09:55; Start 03/11/18 at 08:00 Lamotrigine (LaMICtal) 75 mg DAILY PO ; Start 03/11/18 at 09:00; Stop 03/11/18 at 09:00; Status DC Memantine (Namenda) 10 mg BID PO Last administered on 03/18/18at 20:17; Start at 21:00 Multivitamins/ Calcium (Thera-M Plus) 1 tab DAILY PO Last administered on at 09:56; Start 03/11/18 at 09:00 Polyethylene Glycol (miraLAX) 17 gm DAILY PO Last administered on 03/18/18at 09: 56; Start 03/11/18 at 09:00 Risperidone (RisperDAL) 1 mg DAILY@1400 PO ; Start 03/11/18 at 14:00; Stop 03/11 at 14:00; Status DC Risperidone (RisperDAL) 0.5 mg DAILY PO ; Start 03/11/18 at 09:00; Stop at 09:00; Status DC Venlafaxine HCl (Effexor Xr) 75 mg DAILY PO ; Start 03/11/18 at 09:00; Stop at 09:00; Status DC Acetaminophen (Tylenol) 650 mg PRN Q6HRS PRN PO PAIN / TEMP; Start 03/10/18 at 15:00 Multi-Ingredient Ointment (Analgesic [place]) 1 teri PRN QID PRN TP MUSCLE PAIN; Start 03/10/18 at 15:00 Al Hydroxide/Mg Hydroxide (Mylanta Plus Xs) 15 ml PRN AFTMEALHC PRN PO DYSPEPSIA; Start 03/10/18 at 15:00 Magnesium Hydroxide (Milk Of Magnesia) 2,400 mg PRN QHS PRN PO CONSTIPATION; Start 03/10/18 at 15:00 Risperidone (RisperDAL) 0.5 mg BID@0900,1400 PO Last administered on 03/14/18at 14:51; Start 03/11/18 at 09:00; Stop 03/14/18 at 15:53; Status DC Olanzapine (ZyPREXA ZYDIS) 2.5 mg PRN Q2HR PRN PO agitation/aggression/ psychosis Last administered on 03/18/18at 06:49; Start 03/10/18 at 18:30 Lamotrigine (LaMICtal) 100 mg DAILY PO Last administered on 03/15/18at 09:55; Start 03/11/18 at 09:00; Stop 03/15/18 at 11:00; Status DC Venlafaxine HCl (Effexor Xr) 112.5 mg DAILY PO Last administered on 03/18/18 09 :56; Start 03/11/18 at 09:00 Mirtazapine (Remeron) 7.5 mg QHS PO Last administered on 03/18/18at 20:17; Start 03/11/18 at 21:00 Trazodone HCl (Desyrel) 50 mg PRN QHS PRN PO INSOMNIA Last administered on at 20:16; Start 03/11/18 at 20:30 Clonazepam (KlonoPIN) 0.5 mg TID PO Last administered on 03/15/18at 14:12; Start 03/12/18 at 14:00; Stop 03/15/18 at 18:46; Status DC Vitamin D (Vitamin D3) 50,000 unit WEEKLY PO Last administered on 03/13/18at 17: 23; Start 03/13/18 at 15:15 Risperidone (RisperDAL) 0.25 mg BID92 PO Last administered on 03/16/18at 13:57; Start 03/15/18 at 09:00; Stop 03/16/18 at 19:00; Status DC Lamotrigine (LaMICtal) 150 mg DAILY PO Last administered on 03/18/18at 09:56; Start 03/16/18 at 09:00 Clonazepam (KlonoPIN) 0.5 mg BID PO Last administered on 03/18/18at 09:57; Start 03/15/18 at 21:00; Stop 03/18/18 at 11:04; Status DC Divalproex Sodium (Depakote Sprinkles) 125 mg 0900,1700 PO Last administered on 03/18/18at 17:20; Start 03/16/18 at 09:00 Risperidone (RisperDAL) 0.25 mg HS PO Last administered on 03/18/18at 20:17; Start 03/16/18 at 21:00 Clonazepam (KlonoPIN) 0.5 mg DAILY PO ; Start 03/19/18 at 09:00; Stop 03/21/18 at 12:00 Active Scripts Active Reported Multivitamins (Multivitamin) 1 Each Tablet 1 Each PO DAILY Aspirin 81 Mg Tab.chew 81 Mg PO DAILY Risperidone 1 Mg Tablet 1 Mg PO DAILY@1400 Venlafaxine Hcl Er (Venlafaxine Hcl) 75 Mg Cap.er.24h 75 Mg PO DAILY Namenda (Memantine Hcl) 10 Mg Tablet 10 Mg PO BID Lamotrigine 25 Mg Tablet 75 Mg PO DAILY Miralax (Polyethylene Glycol 3350) 17 Gm Powd.pack 17 Gm PO DAILY Risperdal (Risperidone) 0.5 Mg Tablet 0.5 Mg PO DAILY I have reviewed the current psychotropics carefully including drug interactions. Risk benefit ratio favors no change other than as noted in my dictated progress note. Diagnosis: Problems: (1) Anxiety disorder (2) Dementia in Alzheimer's disease with delusions (3) Dementia in Alzheimer's disease with delusions (4) Dementia in Alzheimer's disease with depression (5) Dementia, vascular, with delusions (6) Dementia, vascular, with depression (7) Impulse control disorder EVE BLANK MD Mar 18, 2018 22:22
[2018-03-19 07:35] LABS: BASO # 0.1 x10^3/uL (0.0-0.2); BASO % 1 % (0-3); EOS # 0.2 x10^3/uL (0.0-0.7); EOS % 2 % (0-3); HEMATOCRIT 43.1 % (39.0-53.0); HEMOGLOBIN 14.4 g/dL (13.0-17.5); LYMPH # 1.2 x10^3/uL (1.0-4.8); LYMPH % 8 % (24-48); MEAN CORPUSCULAR HEMOGLOBIN 30 pg (25-35); MEAN CORPUSCULAR HGB CONC 34 g/dL (31-37); MEAN CORPUSCULAR VOLUME 90 fL (79-100); MONO % 7 % (0-9); NEUT # 12.3 x10^3uL (1.8-7.7); NEUT % 83 % (31-73); PLATELET COUNT 283 x10^3/uL (140-400); RED BLOOD COUNT 4.79 x10^6/uL (4.30-5.70); RED CELL DISTRIBUTION WIDTH 12.7 % (11.5-14.5); WHITE BLOOD COUNT 14.8 x10^3/uL (4.0-11.0)
[2018-03-19 07:51] LABS: ALBUMIN 3.7 g/dL (3.4-5.0); ALBUMIN/GLOBULIN RATIO 0.8 (1.0-1.7); ALK PHOS 94 U/L (46-116); ALT (SGPT) 29 U/L (16-63); ANION GAP 11 (6-14); AST (SGOT) 18 U/L (15-37); BLOOD UREA NITROGEN 21 mg/dL (8-26); BUN/CREATININE RATIO 21 (6-20); CALCIUM 9.2 mg/dL (8.5-10.1); CARBON DIOXIDE 27 mmol/L (21-32); CHLORIDE 102 mmol/L (98-107); GFR 75.7; GLUCOSE 117 mg/dL (70-99); POTASSIUM 4.4 mmol/L (3.5-5.1); SODIUM 140 mmol/L (136-145); TOTAL BILIRUBIN 0.6 mg/dL (0.2-1.0); TOTAL PROTEIN 8.2 g/dL (6.4-8.2)
[2018-03-19 07:52] LABS: VAL ACID 9 mcg/mL (50-100)
[2018-03-19 08:05] LABS: % BANDS 2 % (0-9); % BASOS 2 % (0-3); % LYMPHS 10 % (24-48); % MONOS 3 % (0-10); % SEGS 83 % (35-66)
[2018-03-19 08:06] LABS: PLT ESTIMATE ADEQUATE (ADEQUATE)
[2018-03-19] MEDS: POLYETHYLENE GLYCOL 3350 17 GM PACKET. PO SCH (08:35)
[2018-03-19] MEDS: MULTIVITAMIN with MINERAL TABLET. PO SCH (08:35)
[2018-03-19] MEDS: DIVALPROEX 125 MG CAP.SPRINK PO SCH ×2 (08:35→17:57)
[2018-03-19] MEDS: ASPIRIN 81 MG TAB.CHEW PO SCH (08:35)
[2018-03-19] MEDS: lamoTRIgine 150 MG TABLET. PO SCH (08:35)
[2018-03-19] MEDS: MEMANTINE 10 MG TABLET. PO SCH ×2 (08:35→19:40)
[2018-03-19] MEDS: VENLAFAXINE XR 37.5 MG CAP.ER.24H. PO SCH (08:35)
[2018-03-19] MEDS: clonazePAM 0.5 MG TABLET PO SCH (08:36)
--- NOTE | 2018-03-19 12:28 | PN ---
DATE: 03/17/2018 PSYCHIATRIC PROGRESS NOTE This late entry 03/17/2018 covers elements not covered in my initial note 03/17/2018. SUBJECTIVE: I met with the patient in the evening. The patient slept 7-3/4 hours previous evening, then slept somewhat during the day. His visited. Appetite is poor, but improving. REVIEW OF SYSTEMS: No CV, , pulmonary, eye, ENT system symptoms on review. Reliability poor. MENTAL STATUS EXAM: Oriented to himself. Insight, judgment, recent and remote memory, attention, concentration, fund of knowledge poor, consistent with his diagnosis mentioned in my initial note. PLAN: Continue current psychotropics including the Depakote, which was initiated in consultation with Dr. Guardado, Neurology while we taper the Klonopin. Continue rest unchanged. MAN Toño BLANK MD DR: NBA/ariana JOB#: [id number] / [id number]
[2018-03-19 15:50] VITALS: BP 152/76
--- NOTE | 2018-03-19 18:16 | PN ---
DATE: PSYCHIATRIC PROGRESS NOTE DATE OF SERVICE: 03/17/2018 This late entry 03/17/2018 covers elements not covered in my initial note 03/17/2018. SUBJECTIVE: I met with the patient in the evening and staffed at a treatment team meeting with the entire team in the morning and his , Debra attended the treatment team meeting. Reviewed his history at length. Son, Adriano attended the treatment team meeting as well. Discussed prognosis, diagnosis, current treatment, discharge plans, placement options. The patient slept 6 hours average. Slept 9 hours previous evening, which is an improvement. Appetite 60%. 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 The jerky movements are better. REVIEW OF SYSTEMS: No CV, , pulmonary, eye, ENT system symptoms on review. MENTAL STATUS EXAM: Oriented to himself, still has a parkinsonian facial expression. Insight, judgment, recent and remote memory, attention, concentration, fund of knowledge poor, consistent with his diagnosis mentioned in my initial note. PLAN: Taper and stop the Klonopin. Adjust the Depakote, which is currently 125 twice a day. had questions about prognosis and how much time he had left and she indicated a family history of Alzheimer and the family is estimated about 2 years more for him. It is hard to quantify all of this, but their concerns and questions are totally understandable. Further changes as clinically indicated. MAN Toño BLANK MD DR: NBA/ariana JOB#: [id number] / [id number]
[2018-03-19] MEDS: MIRTAZAPINE 7.5 MG TABLET. PO SCH (19:40)
[2018-03-19] MEDS: LACTOBACILLUS RHAMNOSUS GG 1 CAPSULE. PO SCH (19:53)
[2018-03-19] MEDS: CEPHALEXIN 250 MG CAPSULE PO SCH (19:53)
--- NOTE | 2018-03-19 23:08 | PDOC ---
Exam Note: Tadeo Note: Please also refer to the separate dictated note~for this date of service dictated separately.~Patient seen individually. Discussed the patient with Nursing staff reviewed the chart.~Reviewed interim history and current functioning. Reviewed vital signs,~Labs/ Radiology~and current medications noted below. Continue current treatment with the changes noted in the dictated addendum note Assessment: Vital Signs: Vital Signs Date Time Temp Pulse Resp B/P (MAP) Pulse Ox O2 Delivery O2 Flow Rate FiO2 03/19/18 15:50 99.3 110 20 152/76 (101) 94 03/18/18 16:16 Room Air I&O Intake and Output 03/19/18 07:00 Intake Total 900 ml Balance 900 ml Intake Oral 900 ml Labs: Laboratory Tests Test 03/19/18 07:15 White Blood Count 14.8 x10^3/uL (4.0-11.0) #H Red Blood Count 4.79 x10^6/uL (4.30-5.70) Hemoglobin 14.4 g/dL (13.0-17.5) Hematocrit 43.1 % (39.0-53.0) Mean Corpuscular Volume 90 fL (79-100) Mean Corpuscular Hemoglobin 30 pg (25-35) Mean Corpuscular Hemoglobin Concent 34 g/dL (31-37) Red Cell Distribution Width 12.7 % (11.5-14.5) Platelet Count 283 x10^3/uL (140-400) Neutrophils (%) (Auto) 83 % (31-73) H Lymphocytes (%) (Auto) 8 % (24-48) L Monocytes (%) (Auto) 7 % (0-9) Eosinophils (%) (Auto) 2 % (0-3) Basophils (%) (Auto) 1 % (0-3) Neutrophils # (Auto) 12.3 x10^3uL (1.8-7.7) H Lymphocytes # (Auto) 1.2 x10^3/uL (1.0-4.8) Monocytes # (Auto) 1.0 x10^3/uL (0.0-1.1) Eosinophils # (Auto) 0.2 x10^3/uL (0.0-0.7) Basophils # (Auto) 0.1 x10^3/uL (0.0-0.2) Segmented Neutrophils % 83 % (35-66) H Band Neutrophils % 2 % (0-9) Lymphocytes % 10 % (24-48) L Monocytes % 3 % (0-10) Basophils % 2 % (0-3) Platelet Estimate Adequate (ADEQUATE) Sodium Level 140 mmol/L (136-145) Potassium Level 4.4 mmol/L (3.5-5.1) Chloride Level 102 mmol/L (98-107) Carbon Dioxide Level 27 mmol/L (21-32) Anion Gap 11 (6-14) Blood Urea Nitrogen 21 mg/dL (8-26) Creatinine 1.0 mg/dL (0.7-1.3) Estimated GFR (Cockcroft-Gault) 75.7 BUN/Creatinine Ratio 21 (6-20) H Glucose Level 117 mg/dL (70-99) H Calcium Level 9.2 mg/dL (8.5-10.1) Total Bilirubin 0.6 mg/dL (0.2-1.0) Aspartate Amino Transferase (AST) 18 U/L (15-37) Alanine Aminotransferase (ALT) 29 U/L (16-63) Alkaline Phosphatase 94 U/L (46-116) Ammonia < 10 mcmol/L (11-34) L Total Protein 8.2 g/dL (6.4-8.2) Albumin 3.7 g/dL (3.4-5.0) Albumin/Globulin Ratio 0.8 (1.0-1.7) L Valproic Acid Level 9 mcg/mL (50-100) L Valproic Acid Last Dose Date 03/18/2018 Valproic Acid Last Dose Time 2100 Current Medications: Meds: Current Medications Aspirin (Children'S Aspirin) 81 mg DAILYWBKFT PO Last administered on 03/19/18at 08:35; Start 03/11/18 at 08:00 Lamotrigine (LaMICtal) 75 mg DAILY PO ; Start 03/11/18 at 09:00; Stop 03/11/18 at 09:00; Status DC Memantine (Namenda) 10 mg BID PO Last administered on 03/19/18at 19:40; Start at 21:00 Multivitamins/ Calcium (Thera-M Plus) 1 tab DAILY PO Last administered on at 08:35; Start 03/11/18 at 09:00 Polyethylene Glycol (miraLAX) 17 gm DAILY PO Last administered on 03/19/18at 08: 35; Start 03/11/18 at 09:00 Risperidone (RisperDAL) 1 mg DAILY@1400 PO ; Start 03/11/18 at 14:00; Stop 03/11 at 14:00; Status DC Risperidone (RisperDAL) 0.5 mg DAILY PO ; Start 03/11/18 at 09:00; Stop at 09:00; Status DC Venlafaxine HCl (Effexor Xr) 75 mg DAILY PO ; Start 03/11/18 at 09:00; Stop at 09:00; Status DC Acetaminophen (Tylenol) 650 mg PRN Q6HRS PRN PO PAIN / TEMP; Start 03/10/18 at 15:00 Multi-Ingredient Ointment (Analgesic [place]) 1 teri PRN QID PRN TP MUSCLE PAIN; Start 03/10/18 at 15:00 Al Hydroxide/Mg Hydroxide (Mylanta Plus Xs) 15 ml PRN AFTMEALHC PRN PO DYSPEPSIA; Start 03/10/18 at 15:00 Magnesium Hydroxide (Milk Of Magnesia) 2,400 mg PRN QHS PRN PO CONSTIPATION; Start 03/10/18 at 15:00 Risperidone (RisperDAL) 0.5 mg BID@0900,1400 PO Last administered on 03/14/18at 14:51; Start 03/11/18 at 09:00; Stop 03/14/18 at 15:53; Status DC Olanzapine (ZyPREXA ZYDIS) 2.5 mg PRN Q2HR PRN PO agitation/aggression/ psychosis Last administered on 03/18/18at 06:49; Start 03/10/18 at 18:30 Lamotrigine (LaMICtal) 100 mg DAILY PO Last administered on 03/15/18at 09:55; Start 03/11/18 at 09:00; Stop 03/15/18 at 11:00; Status DC Venlafaxine HCl (Effexor Xr) 112.5 mg DAILY PO Last administered on 03/19/18at 08 :35; Start 03/11/18 at 09:00 Mirtazapine (Remeron) 7.5 mg QHS PO Last administered on 03/19/18 19:40; Start 03/11/18 at 21:00 Trazodone HCl (Desyrel) 50 mg PRN QHS PRN PO INSOMNIA Last administered on 20:16; Start 03/11/18 at 20:30 Clonazepam (KlonoPIN) 0.5 mg TID PO Last administered on 03/15/18 14:12; Start 03/12/18 at 14:00; Stop 03/15/18 at 18:46; Status DC Vitamin D (Vitamin D3) 50,000 unit WEEKLY PO Last administered on 03/13/18 17: 23; Start 03/13/18 at 15:15 Risperidone (RisperDAL) 0.25 mg BID92 PO Last administered on 03/16/18 13:57; Start 03/15/18 at 09:00; Stop 03/16/18 at 19:00; Status DC Lamotrigine (LaMICtal) 150 mg DAILY PO Last administered on 03/19/18 08:35; Start 03/16/18 at 09:00 Clonazepam (KlonoPIN) 0.5 mg BID PO Last administered on 03/18/18 09:57; Start 03/15/18 at 21:00; Stop 03/18/18 at 11:04; Status DC Divalproex Sodium (Depakote Sprinkles) 125 mg 0900,1700 PO Last administered on 03/19/18 17:57; Start 03/16/18 at 09:00 Risperidone (RisperDAL) 0.25 mg HS PO Last administered on 03/18/18 20:17; Start 03/16/18 at 21:00; Stop 03/19/18 at 17:19; Status DC Clonazepam (KlonoPIN) 0.5 mg DAILY PO Last administered on 03/19/18 08:36; Start 03/19/18 at 09:00; Stop 03/21/18 at 12:00 Cephalexin HCl (Keflex) 500 mg TID PO Last administered on 03/19/18 19:53; Start 03/19/18 at 21:00 Lactobacillus Rhamnosus (Culturelle) 1 cap BID PO Last administered on 19:53; Start 03/19/18 at 21:00 Active Scripts Active Reported Multivitamins (Multivitamin) 1 Each Tablet 1 Each PO DAILY Aspirin 81 Mg Tab.chew 81 Mg PO DAILY Risperidone 1 Mg Tablet 1 Mg PO DAILY@1400 Venlafaxine Hcl Er (Venlafaxine Hcl) 75 Mg Cap.er.24h 75 Mg PO DAILY Namenda (Memantine Hcl) 10 Mg Tablet 10 Mg PO BID Lamotrigine 25 Mg Tablet 75 Mg PO DAILY Miralax (Polyethylene Glycol 3350) 17 Gm Powd.pack 17 Gm PO DAILY Risperdal (Risperidone) 0.5 Mg Tablet 0.5 Mg PO DAILY I have reviewed the current psychotropics carefully including drug interactions. Risk benefit ratio favors no change other than as noted in my dictated progress note. Diagnosis: Problems: (1) Anxiety disorder (2) Dementia in Alzheimer's disease with delusions (3) Dementia in Alzheimer's disease with delusions (4) Dementia in Alzheimer's disease with depression (5) Dementia, vascular, with delusions (6) Dementia, vascular, with depression (7) Impulse control disorder EVE BLANK MD Mar 19, 2018 23:08
[2018-03-20 06:22] VITALS: BP 104/64
[2018-03-20] MEDS: clonazePAM 0.5 MG TABLET PO SCH (10:01)
[2018-03-20] MEDS: VENLAFAXINE XR 37.5 MG CAP.ER.24H. PO SCH (10:01)
[2018-03-20] MEDS: lamoTRIgine 150 MG TABLET. PO SCH (10:01)
[2018-03-20] MEDS: LACTOBACILLUS RHAMNOSUS GG 1 CAPSULE. PO SCH ×2 (10:01→20:13)
[2018-03-20] MEDS: MEMANTINE 10 MG TABLET. PO SCH ×2 (10:01→20:13)
[2018-03-20] MEDS: MULTIVITAMIN with MINERAL TABLET. PO SCH (10:01)
[2018-03-20] MEDS: CEPHALEXIN 250 MG CAPSULE PO SCH ×3 (10:01→20:13)
[2018-03-20] MEDS: ASPIRIN 81 MG TAB.CHEW PO SCH (10:01)
[2018-03-20] MEDS: DIVALPROEX 125 MG CAP.SPRINK PO SCH ×2 (10:02→17:21)
[2018-03-20] MEDS: POLYETHYLENE GLYCOL 3350 17 GM PACKET. PO SCH (10:02)
[2018-03-20] MEDS: CHOLECALCIFEROL (VITAMIN D3) 50,000 UNIT CAPSULE PO SCH (10:06)
--- NOTE | 2018-03-20 15:09 | PN ---
DATE: 03/19/2018 PSYCHIATRIC PROGRESS NOTE This is a late entry 03/19/2018 covers elements not covered in my initial note 03/19/2018. SUBJECTIVE: The patient was seen in the evening. The patient slept 6-1/2 hours. Appetite 60%. Valproic acid level is 9. Overall, he has been withdrawn, not aggressive, quite confused. REVIEW OF SYSTEMS: No CV, , pulmonary, eye, ENT system symptoms on review. Reliability poor. MENTAL STATUS EXAMINATION: Oriented to himself. Insight, judgment, recent and remote memory, attention, concentration, fund of knowledge poor, consistent with his diagnosis mentioned in my initial note. PLAN: Stop the Risperdal given his ongoing parkinsonian facial expression. Maintain rest of the psychotropics. Klonopin is being tapered to be discontinued. For now, despite subtherapeutic valproic acid level, we will continue Depakote 125 b.i.d. since impulse control, behaviorally he is doing better. Maintain Lamictal, Namenda, Effexor along with Zyprexa p.r.n., Remeron 7.5 mg at bedtime for insomnia, trazodone for the same. EVE BLANK MD DR: NBA/ariana JOB#: [id number] / [id number]
--- NOTE | 2018-03-20 16:05 | RAD ---
Chest radiograph 03/20/2018 3:12 PM INDICATION: Leukocytosis COMPARISON: None available TECHNIQUE: Portable upright frontal view of the chest is provided. FINDINGS: The cardiomediastinal silhouette is within normal limits. Neck soft tissues obscure evaluation of the left upper lung. There are no pleural effusions. There is no pulmonary vascular congestion. There is no pneumothorax. The lungs are clear. No significant osseous abnormality is identified. IMPRESSION: Limited evaluation of the left lung apex. No acute cardiopulmonary process. Electronically signed by: Sarah Posada MD (03/20/2018 4:01 PM) [facility] [place]
[2018-03-20 16:12] VITALS: BP 118/72
[2018-03-20] MEDS: MIRTAZAPINE 7.5 MG TABLET. PO SCH (20:13)
[2018-03-21 05:33] VITALS: BP 109/68
[2018-03-21] MEDS: POLYETHYLENE GLYCOL 3350 17 GM PACKET. PO SCH (08:33)
[2018-03-21] MEDS: VENLAFAXINE XR 37.5 MG CAP.ER.24H. PO SCH (08:35)
[2018-03-21] MEDS: DIVALPROEX 125 MG CAP.SPRINK PO SCH ×2 (08:35→17:26)
[2018-03-21] MEDS: LACTOBACILLUS RHAMNOSUS GG 1 CAPSULE. PO SCH ×2 (08:35→20:06)
[2018-03-21] MEDS: CEPHALEXIN 250 MG CAPSULE PO SCH ×3 (08:36→20:07)
[2018-03-21] MEDS: lamoTRIgine 150 MG TABLET. PO SCH (08:36)
[2018-03-21] MEDS: MULTIVITAMIN with MINERAL TABLET. PO SCH (08:36)
[2018-03-21] MEDS: ASPIRIN 81 MG TAB.CHEW PO SCH (08:36)
[2018-03-21] MEDS: MEMANTINE 10 MG TABLET. PO SCH ×2 (08:36→20:06)
[2018-03-21] MEDS: clonazePAM 0.5 MG TABLET PO SCH (08:37)
[2018-03-21 16:26] VITALS: BP 111/78
[2018-03-21] MEDS: MIRTAZAPINE 7.5 MG TABLET. PO SCH (20:06)
--- NOTE | 2018-03-21 20:06 | PDOC ---
Exam Note: Tadeo Note: Late entry for date of service March 20, 2018. Please also refer to the separate dictated note~for this date of service dictated separately.~Patient seen individually. Discussed the patient with Nursing staff reviewed the chart.~ Reviewed interim history and current functioning. Reviewed vital signs,~Labs/ Radiology~and current medications noted below. Continue current treatment with the changes noted in the dictated addendum note Assessment: Vital Signs: VS - Last 72 Hours, by Label Date Time Temp Pulse Resp B/P (MAP) Pulse Ox O2 Delivery O2 Flow Rate FiO2 03/21/18 16:26 98.0 82 18 111/78 (89) 03/21/18 05:33 98.6 101 109/68 (82) 96 03/20/18 16:12 97.9 90 18 118/72 (87) 95 03/20/18 06:22 98.6 83 18 104/64 (77) 96 03/19/18 15:50 99.3 110 20 152/76 (101) 94 Vital Signs Date Time Temp Pulse Resp B/P (MAP) Pulse Ox O2 Delivery O2 Flow Rate FiO2 03/21/18 16:26 98.0 82 18 111/78 (89) 03/21/18 05:33 96 03/18/18 16:16 Room Air I&O Intake and Output 03/21/18 07:00 Intake Total 720 ml Balance 720 ml Intake Oral 720 ml Current Medications: Meds: Current Medications Aspirin (Children'S Aspirin) 81 mg DAILYWBKFT PO Last administered on at 08:36; Start 03/11/18 at 08:00 Lamotrigine (LaMICtal) 75 mg DAILY PO ; Start 03/11/18 at 09:00; Stop 03/11/18 at 09:00; Status DC Memantine (Namenda) 10 mg BID PO Last administered on 03/21/18at 08:36; Start at 21:00 Multivitamins/ Calcium (Thera-M Plus) 1 tab DAILY PO Last administered on at 08:36; Start 03/11/18 at 09:00 Polyethylene Glycol (miraLAX) 17 gm DAILY PO Last administered on 03/21/18at 08: 33; Start 03/11/18 at 09:00 Risperidone (RisperDAL) 1 mg DAILY@1400 PO ; Start 03/11/18 at 14:00; Stop 03/11 at 14:00; Status DC Risperidone (RisperDAL) 0.5 mg DAILY PO ; Start 03/11/18 at 09:00; Stop at 09:00; Status DC Venlafaxine HCl (Effexor Xr) 75 mg DAILY PO ; Start 03/11/18 at 09:00; Stop at 09:00; Status DC Acetaminophen (Tylenol) 650 mg PRN Q6HRS PRN PO PAIN / TEMP; Start 03/10/18 at 15:00 Multi-Ingredient Ointment (Analgesic [place]) 1 teri PRN QID PRN TP MUSCLE PAIN; Start 03/10/18 at 15:00 Al Hydroxide/Mg Hydroxide (Mylanta Plus Xs) 15 ml PRN AFTMEALHC PRN PO DYSPEPSIA; Start 03/10/18 at 15:00 Magnesium Hydroxide (Milk Of Magnesia) 2,400 mg PRN QHS PRN PO CONSTIPATION Last administered on 03/20/18at 17:21; Start 03/10/18 at 15:00 Risperidone (RisperDAL) 0.5 mg BID@0900,1400 PO Last administered on 03/14/18at 14:51; Start 03/11/18 at 09:00; Stop 03/14/18 at 15:53; Status DC Olanzapine (ZyPREXA ZYDIS) 2.5 mg PRN Q2HR PRN PO agitation/aggression/ psychosis Last administered on 03/18/18at 06:49; Start 03/10/18 at 18:30 Lamotrigine (LaMICtal) 100 mg DAILY PO Last administered on 03/15/18at 09:55; Start 03/11/18 at 09:00; Stop 03/15/18 at 11:00; Status DC Venlafaxine HCl (Effexor Xr) 112.5 mg DAILY PO Last administered on 03/21/18at 08:35; Start 03/11/18 at 09:00 Mirtazapine (Remeron) 7.5 mg QHS PO Last administered on 03/20/18at 20:13; Start 03/11/18 at 21:00 Trazodone HCl (Desyrel) 50 mg PRN QHS PRN PO INSOMNIA Last administered on 20:16; Start 03/11/18 at 20:30 Clonazepam (KlonoPIN) 0.5 mg TID PO Last administered on 03/15/18 14:12; Start 03/12/18 at 14:00; Stop 03/15/18 at 18:46; Status DC Vitamin D (Vitamin D3) 50,000 unit WEEKLY PO Last administered on 03/20/18 10: 06; Start 03/13/18 at 15:15 Risperidone (RisperDAL) 0.25 mg BID92 PO Last administered on 03/16/18 13:57; Start 03/15/18 at 09:00; Stop 03/16/18 at 19:00; Status DC Lamotrigine (LaMICtal) 150 mg DAILY PO Last administered on 03/21/18 08:36; Start 03/16/18 at 09:00 Clonazepam (KlonoPIN) 0.5 mg BID PO Last administered on 03/18/18 09:57; Start 03/15/18 at 21:00; Stop 03/18/18 at 11:04; Status DC Divalproex Sodium (Depakote Sprinkles) 125 mg 0900,1700 PO Last administered on 03/21/18 17:26; Start 03/16/18 at 09:00 Risperidone (RisperDAL) 0.25 mg HS PO Last administered on 03/18/18 20:17; Start 03/16/18 at 21:00; Stop 03/19/18 at 17:19; Status DC Clonazepam (KlonoPIN) 0.5 mg DAILY PO Last administered on 03/21/18 08:37; Start 03/19/18 at 09:00; Stop 03/21/18 at 12:00; Status DC Cephalexin HCl (Keflex) 500 mg TID PO Last administered on 03/21/18 14:46; Start 03/19/18 at 21:00 Lactobacillus Rhamnosus (Culturelle) 1 cap BID PO Last administered on 08:35; Start 03/19/18 at 21:00 Active Scripts Active Reported Multivitamins (Multivitamin) 1 Each Tablet 1 Each PO DAILY Aspirin 81 Mg Tab.chew 81 Mg PO DAILY Risperidone 1 Mg Tablet 1 Mg PO DAILY@1400 Venlafaxine Hcl Er (Venlafaxine Hcl) 75 Mg Cap.er.24h 75 Mg PO DAILY Namenda (Memantine Hcl) 10 Mg Tablet 10 Mg PO BID Lamotrigine 25 Mg Tablet 75 Mg PO DAILY Miralax (Polyethylene Glycol 3350) 17 Gm Powd.pack 17 Gm PO DAILY Risperdal (Risperidone) 0.5 Mg Tablet 0.5 Mg PO DAILY I have reviewed the current psychotropics carefully including drug interactions. Risk benefit ratio favors no change other than as noted in my dictated progress note. Diagnosis: Problems: (1) Anxiety disorder (2) Dementia in Alzheimer's disease with delusions (3) Dementia in Alzheimer's disease with delusions (4) Dementia in Alzheimer's disease with depression (5) Dementia, vascular, with delusions (6) Dementia, vascular, with depression (7) Impulse control disorder EVE BLANK MD Mar 21, 2018 20:06
--- NOTE | 2018-03-21 20:07 | PDOC ---
Exam Note: Tadeo Note: Please also refer to the separate dictated note~for this date of service dictated separately.~Patient seen individually. Discussed the patient with Nursing staff reviewed the chart.~Reviewed interim history and current functioning. Reviewed vital signs,~Labs/ Radiology~and current medications noted below. Continue current treatment with the changes noted in the dictated addendum note Assessment: Vital Signs: Vital Signs Date Time Temp Pulse Resp B/P (MAP) Pulse Ox O2 Delivery O2 Flow Rate FiO2 03/21/18 16:26 98.0 82 18 111/78 (89) 03/21/18 05:33 96 03/18/18 16:16 Room Air I&O Intake and Output 03/21/18 07:00 Intake Total 720 ml Balance 720 ml Intake Oral 720 ml Current Medications: Meds: Current Medications Aspirin (Children'S Aspirin) 81 mg DAILYWBKFT PO Last administered on at 08:36; Start 03/11/18 at 08:00 Lamotrigine (LaMICtal) 75 mg DAILY PO ; Start 03/11/18 at 09:00; Stop 03/11/18 at 09:00; Status DC Memantine (Namenda) 10 mg BID PO Last administered on 03/21/18at 08:36; Start at 21:00 Multivitamins/ Calcium (Thera-M Plus) 1 tab DAILY PO Last administered on at 08:36; Start 03/11/18 at 09:00 Polyethylene Glycol (miraLAX) 17 gm DAILY PO Last administered on 03/21/18at 08: 33; Start 03/11/18 at 09:00 Risperidone (RisperDAL) 1 mg DAILY@1400 PO ; Start 03/11/18 at 14:00; Stop 03/11 at 14:00; Status DC Risperidone (RisperDAL) 0.5 mg DAILY PO ; Start 03/11/18 at 09:00; Stop at 09:00; Status DC Venlafaxine HCl (Effexor Xr) 75 mg DAILY PO ; Start 03/11/18 at 09:00; Stop at 09:00; Status DC Acetaminophen (Tylenol) 650 mg PRN Q6HRS PRN PO PAIN / TEMP; Start 03/10/18 at 15:00 Multi-Ingredient Ointment (Analgesic [place]) 1 teri PRN QID PRN TP MUSCLE PAIN; Start 03/10/18 at 15:00 Al Hydroxide/Mg Hydroxide (Mylanta Plus Xs) 15 ml PRN AFTMEALHC PRN PO DYSPEPSIA; Start 03/10/18 at 15:00 Magnesium Hydroxide (Milk Of Magnesia) 2,400 mg PRN QHS PRN PO CONSTIPATION Last administered on 03/20/18 17:21; Start 03/10/18 at 15:00 Risperidone (RisperDAL) 0.5 mg BID@0900,1400 PO Last administered on 03/14/18 14:51; Start 03/11/18 at 09:00; Stop 03/14/18 at 15:53; Status DC Olanzapine (ZyPREXA ZYDIS) 2.5 mg PRN Q2HR PRN PO agitation/aggression/ psychosis Last administered on 03/18/18 06:49; Start 03/10/18 at 18:30 Lamotrigine (LaMICtal) 100 mg DAILY PO Last administered on 03/15/18at 09:55; Start 03/11/18 at 09:00; Stop 03/15/18 at 11:00; Status DC Venlafaxine HCl (Effexor Xr) 112.5 mg DAILY PO Last administered on 03/21/18at 08:35; Start 03/11/18 at 09:00 Mirtazapine (Remeron) 7.5 mg QHS PO Last administered on 03/20/18at 20:13; Start 03/11/18 at 21:00 Trazodone HCl (Desyrel) 50 mg PRN QHS PRN PO INSOMNIA Last administered on 20:16; Start 03/11/18 at 20:30 Clonazepam (KlonoPIN) 0.5 mg TID PO Last administered on 03/15/18 14:12; Start 03/12/18 at 14:00; Stop 03/15/18 at 18:46; Status DC Vitamin D (Vitamin D3) 50,000 unit WEEKLY PO Last administered on 03/20/18 10: 06; Start 03/13/18 at 15:15 Risperidone (RisperDAL) 0.25 mg BID92 PO Last administered on 6/5/18at 13:57; Start 03/15/18 at 09:00; Stop 03/16/18 at 19:00; Status DC Lamotrigine (LaMICtal) 150 mg DAILY PO Last administered on 03/21/18at 08:36; Start 03/16/18 at 09:00 Clonazepam (KlonoPIN) 0.5 mg BID PO Last administered on 03/18/18 09:57; Start 03/15/18 at 21:00; Stop 03/18/18 at 11:04; Status DC Divalproex Sodium (Depakote Sprinkles) 125 mg 0900,1700 PO Last administered on 03/21/18 17:26; Start 03/16/18 at 09:00 Risperidone (RisperDAL) 0.25 mg HS PO Last administered on 03/18/18 20:17; Start 03/16/18 at 21:00; Stop 03/19/18 at 17:19; Status DC Clonazepam (KlonoPIN) 0.5 mg DAILY PO Last administered on 03/21/18at 08:37; Start 03/19/18 at 09:00; Stop 03/21/18 at 12:00; Status DC Cephalexin HCl (Keflex) 500 mg TID PO Last administered on 03/21/18at 14:46; Start 03/19/18 at 21:00 Lactobacillus Rhamnosus (Culturelle) 1 cap BID PO Last administered on at 08:35; Start 03/19/18 at 21:00 Active Scripts Active Reported Multivitamins (Multivitamin) 1 Each Tablet 1 Each PO DAILY Aspirin 81 Mg Tab.chew 81 Mg PO DAILY Risperidone 1 Mg Tablet 1 Mg PO DAILY@1400 Venlafaxine Hcl Er (Venlafaxine Hcl) 75 Mg Cap.er.24h 75 Mg PO DAILY Namenda (Memantine Hcl) 10 Mg Tablet 10 Mg PO BID Lamotrigine 25 Mg Tablet 75 Mg PO DAILY Miralax (Polyethylene Glycol 3350) 17 Gm Powd.pack 17 Gm PO DAILY Risperdal (Risperidone) 0.5 Mg Tablet 0.5 Mg PO DAILY I have reviewed the current psychotropics carefully including drug interactions. Risk benefit ratio favors no change other than as noted in my dictated progress note. Diagnosis: Problems: (1) Anxiety disorder (2) Dementia in Alzheimer's disease with delusions (3) Dementia in Alzheimer's disease with delusions (4) Dementia in Alzheimer's disease with depression (5) Dementia, vascular, with delusions (6) Dementia, vascular, with depression (7) Impulse control disorder EVE BLANK MD Mar 21, 2018 20:07
[2018-03-22 06:04] VITALS: BP 122/75
[2018-03-22] MEDS: ASPIRIN 81 MG TAB.CHEW PO SCH (08:16)
[2018-03-22] MEDS: LACTOBACILLUS RHAMNOSUS GG 1 CAPSULE. PO SCH ×2 (08:16→19:26)
[2018-03-22] MEDS: DIVALPROEX 125 MG CAP.SPRINK PO SCH ×2 (08:16→17:06)
[2018-03-22] MEDS: CEPHALEXIN 250 MG CAPSULE PO SCH ×3 (08:17→19:26)
[2018-03-22] MEDS: lamoTRIgine 150 MG TABLET. PO SCH (08:17)
[2018-03-22] MEDS: VENLAFAXINE XR 37.5 MG CAP.ER.24H. PO SCH (08:17)
[2018-03-22] MEDS: MEMANTINE 10 MG TABLET. PO SCH ×2 (08:18→19:26)
[2018-03-22] MEDS: MULTIVITAMIN with MINERAL TABLET. PO SCH (08:18)
[2018-03-22] MEDS: POLYETHYLENE GLYCOL 3350 17 GM PACKET. PO SCH (08:18)
--- NOTE | 2018-03-22 12:55 | PN ---
DATE: 03/20/2018 PSYCHIATRIC PROGRESS NOTE This is a late entry 03/20/2018, covers elements not covered in my initial note. SUBJECTIVE: I met with the patient in the evening. The patient had some leukocytosis. Chest x-ray. UA had been done. We will defer to Dr. Tejada. He has not been aggressive, otherwise compliant, withdrawn. REVIEW OF SYSTEMS: No CV, , pulmonary, eye, ENT system symptoms on review. Reliability poor. MENTAL STATUS EXAM: Oriented to himself. Insight, judgment, recent and remote memory, attention, concentration, fund of knowledge poor, consistent with his diagnoses, not very verbal forthcoming at all as I met with him individually. LABORATORY DATA: Reviewed. IMPRESSION: Unchanged from initial note. PLAN: No change from initial note with respect to psychotropics. MAN Toño BLANK MD DR: NBA/ariana JOB#: [id number] / [id number]
[2018-03-22 16:00] VITALS: BP 136/78
[2018-03-22] MEDS: MIRTAZAPINE 7.5 MG TABLET. PO SCH (19:26)
--- NOTE | 2018-03-22 20:42 | PDOC ---
Exam Note: Tadeo Note: Please also refer to the separate dictated note~for this date of service dictated separately.~Patient seen individually. Discussed the patient with Nursing staff reviewed the chart.~Reviewed interim history and current functioning. Reviewed vital signs,~Labs/ Radiology~and current medications noted below. Continue current treatment with the changes noted in the dictated addendum note Assessment: Vital Signs: Vital Signs Date Time Temp Pulse Resp B/P (MAP) Pulse Ox O2 Delivery O2 Flow Rate FiO2 03/22/18 16:00 98.7 50 16 136/78 (97) 90 03/18/18 16:16 Room Air I&O Intake and Output 03/22/18 07:00 Intake Total 560 ml Balance 560 ml Intake Oral 560 ml # Bowel Movements 1 Current Medications: Meds: Current Medications Aspirin (Children'S Aspirin) 81 mg DAILYWBKFT PO Last administered on at 08:16; Start 03/11/18 at 08:00 Lamotrigine (LaMICtal) 75 mg DAILY PO ; Start 03/11/18 at 09:00; Stop 03/11/18 at 09:00; Status DC Memantine (Namenda) 10 mg BID PO Last administered on 03/22/18at 19:26; Start at 21:00 Multivitamins/ Calcium (Thera-M Plus) 1 tab DAILY PO Last administered on at 08:18; Start 03/11/18 at 09:00 Polyethylene Glycol (miraLAX) 17 gm DAILY PO Last administered on 03/22/18at 08: 18; Start 03/11/18 at 09:00 Risperidone (RisperDAL) 1 mg DAILY@1400 PO ; Start 03/11/18 at 14:00; Stop 03/11 at 14:00; Status DC Risperidone (RisperDAL) 0.5 mg DAILY PO ; Start 03/11/18 at 09:00; Stop at 09:00; Status DC Venlafaxine HCl (Effexor Xr) 75 mg DAILY PO ; Start 03/11/18 at 09:00; Stop at 09:00; Status DC Acetaminophen (Tylenol) 650 mg PRN Q6HRS PRN PO PAIN / TEMP; Start 03/10/18 at 15:00 Multi-Ingredient Ointment (Analgesic [place]) 1 teri PRN QID PRN TP MUSCLE PAIN; Start 03/10/18 at 15:00 Al Hydroxide/Mg Hydroxide (Mylanta Plus Xs) 15 ml PRN AFTMEALHC PRN PO DYSPEPSIA; Start 03/10/18 at 15:00 Magnesium Hydroxide (Milk Of Magnesia) 2,400 mg PRN QHS PRN PO CONSTIPATION Last administered on 03/20/18 17:21; Start 03/10/18 at 15:00 Risperidone (RisperDAL) 0.5 mg BID@0900,1400 PO Last administered on 03/14/18 14:51; Start 03/11/18 at 09:00; Stop 03/14/18 at 15:53; Status DC Olanzapine (ZyPREXA ZYDIS) 2.5 mg PRN Q2HR PRN PO agitation/aggression/ psychosis Last administered on 03/18/18 06:49; Start 03/10/18 at 18:30 Lamotrigine (LaMICtal) 100 mg DAILY PO Last administered on 03/15/18at 09:55; Start 03/11/18 at 09:00; Stop 03/15/18 at 11:00; Status DC Venlafaxine HCl (Effexor Xr) 112.5 mg DAILY PO Last administered on 03/22/18 08:17; Start 03/11/18 at 09:00 Mirtazapine (Remeron) 7.5 mg QHS PO Last administered on 03/22/18at 19:26; Start 03/11/18 at 21:00 Trazodone HCl (Desyrel) 50 mg PRN QHS PRN PO INSOMNIA Last administered on 20:16; Start 03/11/18 at 20:30 Clonazepam (KlonoPIN) 0.5 mg TID PO Last administered on 03/15/18 14:12; Start 03/12/18 at 14:00; Stop 03/15/18 at 18:46; Status DC Vitamin D (Vitamin D3) 50,000 unit WEEKLY PO Last administered on 03/20/18 10: 06; Start 03/13/18 at 15:15 Risperidone (RisperDAL) 0.25 mg BID92 PO Last administered on 03/16/18at 13:57; Start 03/15/18 at 09:00; Stop 03/16/18 at 19:00; Status DC Lamotrigine (LaMICtal) 150 mg DAILY PO Last administered on 03/22/18at 08:17; Start 03/16/18 at 09:00 Clonazepam (KlonoPIN) 0.5 mg BID PO Last administered on 03/18/18at 09:57; Start 03/15/18 at 21:00; Stop 03/18/18 at 11:04; Status DC Divalproex Sodium (Depakote Sprinkles) 125 mg 0900,1700 PO Last administered on 03/22/18at 17:06; Start 03/16/18 at 09:00 Risperidone (RisperDAL) 0.25 mg HS PO Last administered on 03/18/18at 20:17; Start 03/16/18 at 21:00; Stop 03/19/18 at 17:19; Status DC Clonazepam (KlonoPIN) 0.5 mg DAILY PO Last administered on 03/21/18at 08:37; Start 03/19/18 at 09:00; Stop 03/21/18 at 12:00; Status DC Cephalexin HCl (Keflex) 500 mg TID PO Last administered on 03/22/18 19:26; Start 03/19/18 at 21:00 Lactobacillus Rhamnosus (Culturelle) 1 cap BID PO Last administered on at 19:26; Start 03/19/18 at 21:00 Active Scripts Active Reported Multivitamins (Multivitamin) 1 Each Tablet 1 Each PO DAILY Aspirin 81 Mg Tab.chew 81 Mg PO DAILY Risperidone 1 Mg Tablet 1 Mg PO DAILY@1400 Venlafaxine Hcl Er (Venlafaxine Hcl) 75 Mg Cap.er.24h 75 Mg PO DAILY Namenda (Memantine Hcl) 10 Mg Tablet 10 Mg PO BID Lamotrigine 25 Mg Tablet 75 Mg PO DAILY Miralax (Polyethylene Glycol 3350) 17 Gm Powd.pack 17 Gm PO DAILY Risperdal (Risperidone) 0.5 Mg Tablet 0.5 Mg PO DAILY I have reviewed the current psychotropics carefully including drug interactions. Risk benefit ratio favors no change other than as noted in my dictated progress note. Diagnosis: Problems: (1) Anxiety disorder (2) Dementia in Alzheimer's disease with delusions (3) Dementia in Alzheimer's disease with delusions (4) Dementia in Alzheimer's disease with depression (5) Dementia, vascular, with delusions (6) Dementia, vascular, with depression (7) Impulse control disorder EVE BLANK MD Mar 22, 2018 20:42
[2018-03-23 05:45] VITALS: BP 112/63
[2018-03-23 07:21] LABS: BASO # 0.1 x10^3/uL (0.0-0.2); BASO % 1 % (0-3); EOS # 0.1 x10^3/uL (0.0-0.7); EOS % 0 % (0-3); HEMATOCRIT 37.9 % (39.0-53.0); HEMOGLOBIN 12.9 g/dL (13.0-17.5); LYMPH # 1.3 x10^3/uL (1.0-4.8); LYMPH % 8 % (24-48); MEAN CORPUSCULAR HEMOGLOBIN 31 pg (25-35); MEAN CORPUSCULAR HGB CONC 34 g/dL (31-37); MEAN CORPUSCULAR VOLUME 90 fL (79-100); MONO # 1.7 x10^3/uL (0.0-1.1); MONO % 10 % (0-9); NEUT % 80 % (31-73); PLATELET COUNT 242 x10^3/uL (140-400); RED CELL DISTRIBUTION WIDTH 12.8 % (11.5-14.5); WHITE BLOOD COUNT 16.2 x10^3/uL (4.0-11.0)
[2018-03-23 07:46] LABS: ALBUMIN 3.1 g/dL (3.4-5.0); ALBUMIN/GLOBULIN RATIO 0.7 (1.0-1.7); CALCIUM 8.8 mg/dL (8.5-10.1); CREATININE 1.1 mg/dL (0.7-1.3); GFR 67.8; TOTAL BILIRUBIN 0.7 mg/dL (0.2-1.0); TOTAL PROTEIN 7.4 g/dL (6.4-8.2)
[2018-03-23] MEDS: VENLAFAXINE XR 37.5 MG CAP.ER.24H. PO SCH (08:02)
[2018-03-23] MEDS: LACTOBACILLUS RHAMNOSUS GG 1 CAPSULE. PO SCH ×2 (08:02→20:45)
[2018-03-23] MEDS: ASPIRIN 81 MG TAB.CHEW PO SCH (08:02)
[2018-03-23] MEDS: CEPHALEXIN 250 MG CAPSULE PO SCH ×2 (08:03→13:35)
[2018-03-23] MEDS: POLYETHYLENE GLYCOL 3350 17 GM PACKET. PO SCH (08:03)
[2018-03-23] MEDS: MEMANTINE 10 MG TABLET. PO SCH ×2 (08:03→20:45)
[2018-03-23] MEDS: lamoTRIgine 150 MG TABLET. PO SCH (08:03)
[2018-03-23] MEDS: MULTIVITAMIN with MINERAL TABLET. PO SCH (08:03)
[2018-03-23] MEDS: DIVALPROEX 125 MG CAP.SPRINK PO SCH ×2 (08:03→16:46)
[2018-03-23 08:35] LABS: POTASSIUM 4.1 mmol/L (3.5-5.1)
--- NOTE | 2018-03-23 09:09 | PN ---
DATE: 03/21/2018 This is a late entry 03/21/2018 covers elements not covered in my initial note. SUBJECTIVE: I met with the patient in the evening. The patient has been a little more with respect to his expression since the Risperdal was discontinued. He had several visitors earlier in the day and did well. We will go ahead and discontinue the one-on-one status. No CV, , pulmonary, eye, ENT system symptoms on review. Reliability poor. MENTAL STATUS EXAM: Oriented to himself. Insight, judgment, recent and remote memory, attention, concentration, fund of knowledge poor, consistent with his diagnosis mentioned in my initial note. PLAN: No change from a psychiatric standpoint. Klonopin will be stopped on 03/22/2018. MAN Toño BLANK MD DR: NBA/ariana JOB#: [id number] / [id number]
[2018-03-23 09:55] LABS: % BANDS 3 % (0-9); % BASOS 1 % (0-3); % EOS 1 % (0-5); % LYMPHS 10 % (24-48); % MONOS 7 % (0-10); % SEGS 75 % (35-66); PLT ESTIMATE ADEQUATE (ADEQUATE)
[2018-03-23 16:39] VITALS: BP 130/87
--- NOTE | 2018-03-23 20:03 | PDOC ---
Exam Note: Tadeo Note: Please also refer to the separate dictated note~for this date of service dictated separately.~Patient seen individually. Discussed the patient with Nursing staff reviewed the chart.~Reviewed interim history and current functioning. Reviewed vital signs,~Labs/ Radiology~and current medications noted below. Continue current treatment with the changes noted in the dictated addendum note Assessment: Vital Signs: Vital Signs Date Time Temp Pulse Resp B/P (MAP) Pulse Ox O2 Delivery O2 Flow Rate FiO2 03/23/18 16:39 100.7 108 18 130/87 (101) 94 Room Air I&O Intake and Output 03/23/18 07:00 Intake Total 600 ml Balance 600 ml Intake Oral 600 ml Labs: Laboratory Tests Test 03/23/18 06:49 03/23/18 17:05 White Blood Count 16.2 x10^3/uL (4.0-11.0) H Red Blood Count 4.20 x10^6/uL (4.30-5.70) L Hemoglobin 12.9 g/dL (13.0-17.5) L Hematocrit 37.9 % (39.0-53.0) L Mean Corpuscular Volume 90 fL (79-100) Mean Corpuscular Hemoglobin 31 pg (25-35) Mean Corpuscular Hemoglobin Concent 34 g/dL (31-37) Red Cell Distribution Width 12.8 % (11.5-14.5) Platelet Count 242 x10^3/uL (140-400) Neutrophils (%) (Auto) 80 % (31-73) H Lymphocytes (%) (Auto) 8 % (24-48) L Monocytes (%) (Auto) 10 % (0-9) H Eosinophils (%) (Auto) 0 % (0-3) Basophils (%) (Auto) 1 % (0-3) Neutrophils # (Auto) 13.0 x10^3uL (1.8-7.7) H Lymphocytes # (Auto) 1.3 x10^3/uL (1.0-4.8) Monocytes # (Auto) 1.7 x10^3/uL (0.0-1.1) H Eosinophils # (Auto) 0.1 x10^3/uL (0.0-0.7) Basophils # (Auto) 0.1 x10^3/uL (0.0-0.2) Segmented Neutrophils % 75 % (35-66) H Band Neutrophils % 3 % (0-9) Lymphocytes % 10 % (24-48) L Monocytes % 7 % (0-10) Eosinophils % 1 % (0-5) Basophils % 1 % (0-3) Platelet Estimate Adequate (ADEQUATE) Sodium Level 141 mmol/L (136-145) Potassium Level 4.1 mmol/L (3.5-5.1) Chloride Level 104 mmol/L (98-107) Carbon Dioxide Level 27 mmol/L (21-32) Anion Gap 10 (6-14) Blood Urea Nitrogen 32 mg/dL (8-26) H Creatinine 1.1 mg/dL (0.7-1.3) Estimated GFR (Cockcroft-Gault) 67.8 BUN/Creatinine Ratio 29 (6-20) H Glucose Level 136 mg/dL (70-99) H Calcium Level 8.8 mg/dL (8.5-10.1) Total Bilirubin 0.7 mg/dL (0.2-1.0) Aspartate Amino Transferase (AST) 22 U/L (15-37) Alanine Aminotransferase (ALT) 24 U/L (16-63) Alkaline Phosphatase 102 U/L (46-116) Total Protein 7.4 g/dL (6.4-8.2) Albumin 3.1 g/dL (3.4-5.0) L Albumin/Globulin Ratio 0.7 (1.0-1.7) L Lactic Acid Level 1.5 mmol/L (0.4-2.0) Current Medications: Meds: Current Medications Aspirin (Children'S Aspirin) 81 mg DAILYWBKFT PO Last administered on at 08:02; Start 03/11/18 at 08:00 Lamotrigine (LaMICtal) 75 mg DAILY PO ; Start 03/11/18 at 09:00; Stop 03/11/18 at 09:00; Status DC Memantine (Namenda) 10 mg BID PO Last administered on 03/23/18at 08:03; Start at 21:00 Multivitamins/ Calcium (Thera-M Plus) 1 tab DAILY PO Last administered on at 08:03; Start 03/11/18 at 09:00 Polyethylene Glycol (miraLAX) 17 gm DAILY PO Last administered on 03/23/18at 08: 03; Start 03/11/18 at 09:00 Risperidone (RisperDAL) 1 mg DAILY@1400 PO ; Start 03/11/18 at 14:00; Stop 03/11 at 14:00; Status DC Risperidone (RisperDAL) 0.5 mg DAILY PO ; Start 03/11/18 at 09:00; Stop at 09:00; Status DC Venlafaxine HCl (Effexor Xr) 75 mg DAILY PO ; Start 03/11/18 at 09:00; Stop at 09:00; Status DC Acetaminophen (Tylenol) 650 mg PRN Q6HRS PRN PO PAIN / TEMP; Start 03/10/18 at 15:00 Multi-Ingredient Ointment (Analgesic [place]) 1 teri PRN QID PRN TP MUSCLE PAIN; Start 03/10/18 at 15:00 Al Hydroxide/Mg Hydroxide (Mylanta Plus Xs) 15 ml PRN AFTMEALHC PRN PO DYSPEPSIA; Start 03/10/18 at 15:00 Magnesium Hydroxide (Milk Of Magnesia) 2,400 mg PRN QHS PRN PO CONSTIPATION Last administered on 03/20/18at 17:21; Start 03/10/18 at 15:00 Risperidone (RisperDAL) 0.5 mg BID@0900,1400 PO Last administered on 03/14/18at 14:51; Start 03/11/18 at 09:00; Stop 03/14/18 at 15:53; Status DC Olanzapine (ZyPREXA ZYDIS) 2.5 mg PRN Q2HR PRN PO agitation/aggression/ psychosis Last administered on 03/18/18at 06:49; Start 03/10/18 at 18:30 Lamotrigine (LaMICtal) 100 mg DAILY PO Last administered on 03/15/18at 09:55; Start 03/11/18 at 09:00; Stop 03/15/18 at 11:00; Status DC Venlafaxine HCl (Effexor Xr) 112.5 mg DAILY PO Last administered on 03/23/18at 08:02; Start 03/11/18 at 09:00 Mirtazapine (Remeron) 7.5 mg QHS PO Last administered on 03/22/18 19:26; Start 03/11/18 at 21:00 Trazodone HCl (Desyrel) 50 mg PRN QHS PRN PO INSOMNIA Last administered on 20:16; Start 03/11/18 at 20:30 Clonazepam (KlonoPIN) 0.5 mg TID PO Last administered on 03/15/18 14:12; Start 03/12/18 at 14:00; Stop 03/15/18 at 18:46; Status DC Vitamin D (Vitamin D3) 50,000 unit WEEKLY PO Last administered on 03/20/18 10: 06; Start 03/13/18 at 15:15 Risperidone (RisperDAL) 0.25 mg BID92 PO Last administered on 03/16/18 13:57; Start 03/15/18 at 09:00; Stop 03/16/18 at 19:00; Status DC Lamotrigine (LaMICtal) 150 mg DAILY PO Last administered on 03/23/18 08:03; Start 03/16/18 at 09:00 Clonazepam (KlonoPIN) 0.5 mg BID PO Last administered on 03/18/18 09:57; Start 03/15/18 at 21:00; Stop 03/18/18 at 11:04; Status DC Divalproex Sodium (Depakote Sprinkles) 125 mg 0900,1700 PO Last administered on 03/23/18 16:46; Start 03/16/18 at 09:00; Stop 03/23/18 at 18:42; Status DC Risperidone (RisperDAL) 0.25 mg HS PO Last administered on 03/18/18 20:17; Start 03/16/18 at 21:00; Stop 03/19/18 at 17:19; Status DC Clonazepam (KlonoPIN) 0.5 mg DAILY PO Last administered on 03/21/18 08:37; Start 03/19/18 at 09:00; Stop 03/21/18 at 12:00; Status DC Cephalexin HCl (Keflex) 500 mg TID PO Last administered on 03/23/18 13:35; Start 03/19/18 at 21:00; Stop 03/23/18 at 19:24; Status DC Lactobacillus Rhamnosus (Culturelle) 1 cap BID PO Last administered on at 08:02; Start 03/19/18 at 21:00 Active Scripts Active Reported Multivitamins (Multivitamin) 1 Each Tablet 1 Each PO DAILY Aspirin 81 Mg Tab.chew 81 Mg PO DAILY Risperidone 1 Mg Tablet 1 Mg PO DAILY@1400 Venlafaxine Hcl Er (Venlafaxine Hcl) 75 Mg Cap.er.24h 75 Mg PO DAILY Namenda (Memantine Hcl) 10 Mg Tablet 10 Mg PO BID Lamotrigine 25 Mg Tablet 75 Mg PO DAILY Miralax (Polyethylene Glycol 3350) 17 Gm Powd.pack 17 Gm PO DAILY Risperdal (Risperidone) 0.5 Mg Tablet 0.5 Mg PO DAILY I have reviewed the current psychotropics carefully including drug interactions. Risk benefit ratio favors no change other than as noted in my dictated progress note. Diagnosis: Problems: (1) Anxiety disorder (2) Dementia in Alzheimer's disease with delusions (3) Dementia in Alzheimer's disease with delusions (4) Dementia in Alzheimer's disease with depression (5) Dementia, vascular, with delusions (6) Dementia, vascular, with depression (7) Impulse control disorder EVE BLANK MD Mar 23, 2018 20:03
[2018-03-23] MEDS: MIRTAZAPINE 7.5 MG TABLET. PO SCH (20:45)
[2018-03-23 22:36] LABS: CLARITY,URINE CLOUDY; COLOR,URINE YELLOW
[2018-03-23 22:37] LABS: BILIRUBIN,URINE NEG (NEG); GLUCOSE,URINE NEG (NEG); UROBILINOGEN,URINE 0.2 mg/dL (0.2 mg/dL)
[2018-03-23 22:38] LABS: BACTERIA,URINE 0 /HPF (0-FEW); NITRITE,URINE NEG (NEG); SQUAMOUS EPITHELIAL CELL,UR OCC /LPF
[2018-03-23 22:39] LABS: AMORPHOUS SEDIMENT,UR PRESENT /HPF
--- NOTE | 2018-03-23 22:57 | PN ---
DATE: 03/22/2018 This is a late entry of 03/22/2018 covers elements not covered in my initial note of 03/22/2018. SUBJECTIVE: I met with the patient in the evening. The patient reportedly did well the previous evening and much of the day on 03/22/2018, he did well until the evening time. He remains quite disorganized, had a large bowel movement and is on antibiotics due to his raised WBC at 14.8. Chest x-ray is negative. I will defer this to Dr. Tejada. At one point, he was incontinent, urinating on the floor. He does have a wound on the left lower extremity, again defer to Dr. Tejada, but UA is being checked to rule out urinary tract infection. REVIEW OF SYSTEMS: No CV, , pulmonary, eye, ENT system symptoms on review. Reliability poor. He is a fall risk, but this is much better. MENTAL STATUS EXAM: Oriented to himself. Insight, judgment, recent and remote memory, attention, concentration, fund of knowledge poor, consistent with his diagnosis mentioned in my initial note. IMPRESSION: Major neurocognitive disorder, Alzheimer, possibly vascular with delusion, depression, behavioral disturbance. Rest unchanged. PLAN: Check UA. Rest psychotropics continue as mentioned in my initial note. MAN Toño BLANK MD DR: NBA/ariana JOB#: [id number] / [id number]
[2018-03-24 06:08] VITALS: BP 136/67
[2018-03-24] MEDS: MEMANTINE 10 MG TABLET. PO SCH ×2 (10:15→19:53)
[2018-03-24] MEDS: ASPIRIN 81 MG TAB.CHEW PO SCH (10:15)
[2018-03-24] MEDS: lamoTRIgine 150 MG TABLET. PO SCH (10:15)
[2018-03-24] MEDS: POLYETHYLENE GLYCOL 3350 17 GM PACKET. PO SCH (10:15)
[2018-03-24] MEDS: LACTOBACILLUS RHAMNOSUS GG 1 CAPSULE. PO SCH ×2 (10:15→19:53)
[2018-03-24] MEDS: VENLAFAXINE XR 37.5 MG CAP.ER.24H. PO SCH (10:15)
[2018-03-24] MEDS: MULTIVITAMIN with MINERAL TABLET. PO SCH (10:15)
--- NOTE | 2018-03-24 11:16 | RAD ---
EXAM: Abdomen sonogram complete. HISTORY: Pain. TECHNIQUE: Sonographic imaging of the abdomen was performed. COMPARISON: None. FINDINGS: The exam is limited due to patient body habitus, bowel gas and immobility. The liver is upper normal in size. No focal hepatic lesion is seen. The gallbladder is unremarkable. The kidneys are normal in size. There is a 1.9 cm left renal cyst. There is no hydronephrosis. The pancreas, aorta and inferior vena cava are partially obscured. There is aortic atherosclerosis. The common bile duct is normal in caliber. There are suspected splenic granulomas. The spleen is normal in size. IMPRESSION: 1. Suspected upper normal liver size. 2. 1.9 cm left renal cyst. 3. Limited exam due to body habitus, bowel gas and immobility. Electronically signed by: Dolly Hightower MD (03/24/2018 11:12 AM) [id number]
[2018-03-24 16:21] VITALS: BP 123/68
[2018-03-24 19:30] VITALS: BP 122/77
[2018-03-24] MEDS: MIRTAZAPINE 7.5 MG TABLET. PO SCH (19:53)
--- NOTE | 2018-03-24 20:43 | PN ---
DATE: 03/23/2018 PSYCHIATRIC PROGRESS NOTE This late entry 03/23/2018 covers elements not covered in my initial note of 03/23/2018. SUBJECTIVE: Met with the patient in the evening. The patient slept 6-1/4 hours. He remains confused, withdrawn, somewhat lethargic, unsteady in his gait. WBC is increased to 16.2. Temperature is with slight elevation, increased heart rate: Deferred to Dr. Tejada. REVIEW OF SYSTEMS: No CV, , pulmonary, eye, ENT system symptoms on review. Reliability is poor. MENTAL STATUS EXAM: Oriented to himself. Insight, judgment, recent, remote memory, attention, concentration, fund of knowledge is poor, consistent with his diagnoses mentioned in my initial note. IMPRESSION: Unchanged from initial note. PLAN: Given his ongoing unsteady gait and lethargy even though this could be contributed by his medical condition, for now, we will go ahead and stop the Depakote. Continue rest unchanged from initial note. MAN Toño BLANK MD DR: NBA/ariana JOB#: [id number] / [id number]
--- NOTE | 2018-03-24 20:49 | PDOC ---
Exam Note: Tadeo Note: Please also refer to the separate dictated note~for this date of service dictated separately.~Patient seen individually. Discussed the patient with Nursing staff reviewed the chart.~Reviewed interim history and current functioning. Reviewed vital signs,~Labs/ Radiology~and current medications noted below. Continue current treatment with the changes noted in the dictated addendum note Assessment: Vital Signs: Vital Signs Date Time Temp Pulse Resp B/P (MAP) Pulse Ox O2 Delivery O2 Flow Rate FiO2 03/24/18 19:30 98.4 101 20 122/77 (92) 92 03/23/18 16:39 Room Air I&O Intake and Output 03/24/18 07:00 Intake Total 440 ml Balance 440 ml Intake Oral 440 ml Labs: Laboratory Tests Test 03/23/18 22:15 Urine Collection Type U cath Urine Color Yellow Urine Clarity Cloudy Urine pH 5.5 Urine Specific [place] >=1.030 Urine Protein >100 mg/dl (NEG-TRACE) Urine Glucose (UA) Neg mg/dL (NEG) Urine Ketones (Stick) Trace mg/dL (NEG) Urine Blood Small (NEG) Urine Nitrite Neg (NEG) Urine Bilirubin Neg (NEG) Urine Urobilinogen Dipstick 0.2 mg/dL (0.2 mg/dL) Urine Leukocyte Esterase Neg (NEG) Urine RBC 3-5 /HPF (0-2) Urine WBC 1-4 /HPF (0-4) Urine Squamous Epithelial Cells Occ /LPF Urine Amorphous Sediment Present /HPF Urine Bacteria 0 /HPF (0-FEW) Urine Mucus Marked /LPF Current Medications: Meds: Current Medications Aspirin (Children'S Aspirin) 81 mg DAILYWBKFT PO Last administered on at 10:15; Start 03/11/18 at 08:00 Lamotrigine (LaMICtal) 75 mg DAILY PO ; Start 03/11/18 at 09:00; Stop 03/11/18 at 09:00; Status DC Memantine (Namenda) 10 mg BID PO Last administered on 03/24/18at 19:53; Start at 21:00 Multivitamins/ Calcium (Thera-M Plus) 1 tab DAILY PO Last administered on at 10:15; Start 03/11/18 at 09:00 Polyethylene Glycol (miraLAX) 17 gm DAILY PO Last administered on 03/24/18at 10: 15; Start 03/11/18 at 09:00 Risperidone (RisperDAL) 1 mg DAILY@1400 PO ; Start 03/11/18 at 14:00; Stop 03/11 at 14:00; Status DC Risperidone (RisperDAL) 0.5 mg DAILY PO ; Start 03/11/18 at 09:00; Stop at 09:00; Status DC Venlafaxine HCl (Effexor Xr) 75 mg DAILY PO ; Start 03/11/18 at 09:00; Stop at 09:00; Status DC Acetaminophen (Tylenol) 650 mg PRN Q6HRS PRN PO PAIN / TEMP; Start 03/10/18 at 15:00 Multi-Ingredient Ointment (Analgesic [place]) 1 teri PRN QID PRN TP MUSCLE PAIN; Start 03/10/18 at 15:00 Al Hydroxide/Mg Hydroxide (Mylanta Plus Xs) 15 ml PRN AFTMEALHC PRN PO DYSPEPSIA; Start 03/10/18 at 15:00 Magnesium Hydroxide (Milk Of Magnesia) 2,400 mg PRN QHS PRN PO CONSTIPATION Last administered on 03/20/18at 17:21; Start 03/10/18 at 15:00 Risperidone (RisperDAL) 0.5 mg BID@0900,1400 PO Last administered on 03/14/18at 14:51; Start 03/11/18 at 09:00; Stop 03/14/18 at 15:53; Status DC Olanzapine (ZyPREXA ZYDIS) 2.5 mg PRN Q2HR PRN PO agitation/aggression/ psychosis Last administered on 03/18/18at 06:49; Start 03/10/18 at 18:30 Lamotrigine (LaMICtal) 100 mg DAILY PO Last administered on 03/15/18at 09:55; Start 03/11/18 at 09:00; Stop 03/15/18 at 11:00; Status DC Venlafaxine HCl (Effexor Xr) 112.5 mg DAILY PO Last administered on 03/24/18at 10:15; Start 03/11/18 at 09:00; Stop 03/24/18 at 18:25; Status DC Mirtazapine (Remeron) 7.5 mg QHS PO Last administered on 03/24/18 19:53; Start 03/11/18 at 21:00 Trazodone HCl (Desyrel) 50 mg PRN QHS PRN PO INSOMNIA Last administered on 20:16; Start 03/11/18 at 20:30 Clonazepam (KlonoPIN) 0.5 mg TID PO Last administered on 03/15/18 14:12; Start 03/12/18 at 14:00; Stop 03/15/18 at 18:46; Status DC Vitamin D (Vitamin D3) 50,000 unit WEEKLY PO Last administered on 03/20/18 10: 06; Start 03/13/18 at 15:15 Risperidone (RisperDAL) 0.25 mg BID92 PO Last administered on 03/16/18 13:57; Start 03/15/18 at 09:00; Stop 03/16/18 at 19:00; Status DC Lamotrigine (LaMICtal) 150 mg DAILY PO Last administered on 03/24/18 10:15; Start 03/16/18 at 09:00 Clonazepam (KlonoPIN) 0.5 mg BID PO Last administered on 03/18/18 09:57; Start 03/15/18 at 21:00; Stop 03/18/18 at 11:04; Status DC Divalproex Sodium (Depakote Sprinkles) 125 mg 0900,1700 PO Last administered on 03/23/18 16:46; Start 03/16/18 at 09:00; Stop 03/23/18 at 18:42; Status DC Risperidone (RisperDAL) 0.25 mg HS PO Last administered on 03/18/18at 20:17; Start 03/16/18 at 21:00; Stop 03/19/18 at 17:19; Status DC Clonazepam (KlonoPIN) 0.5 mg DAILY PO Last administered on 03/21/18at 08:37; Start 03/19/18 at 09:00; Stop 03/21/18 at 12:00; Status DC Cephalexin HCl (Keflex) 500 mg TID PO Last administered on 03/23/18 13:35; Start 03/19/18 at 21:00; Stop 03/23/18 at 19:24; Status DC Lactobacillus Rhamnosus (Culturelle) 1 cap BID PO Last administered on at 19:53; Start 03/19/18 at 21:00 Venlafaxine HCl (Effexor Xr) 112.5 mg HS PO ; Start 03/25/18 at 21:00 Active Scripts Active Reported Multivitamins (Multivitamin) 1 Each Tablet 1 Each PO DAILY Aspirin 81 Mg Tab.chew 81 Mg PO DAILY Risperidone 1 Mg Tablet 1 Mg PO DAILY@1400 Venlafaxine Hcl Er (Venlafaxine Hcl) 75 Mg Cap.er.24h 75 Mg PO DAILY Namenda (Memantine Hcl) 10 Mg Tablet 10 Mg PO BID Lamotrigine 25 Mg Tablet 75 Mg PO DAILY Miralax (Polyethylene Glycol 3350) 17 Gm Powd.pack 17 Gm PO DAILY Risperdal (Risperidone) 0.5 Mg Tablet 0.5 Mg PO DAILY I have reviewed the current psychotropics carefully including drug interactions. Risk benefit ratio favors no change other than as noted in my dictated progress note. Diagnosis: Problems: (1) Anxiety disorder (2) Dementia in Alzheimer's disease with delusions (3) Dementia in Alzheimer's disease with delusions (4) Dementia in Alzheimer's disease with depression (5) Dementia, vascular, with delusions (6) Dementia, vascular, with depression (7) Impulse control disorder EVE BLANK MD Mar 24, 2018 20:49
[2018-03-25 00:20] VITALS: BP 119/64
[2018-03-25 05:45] VITALS: BP 113/69
[2018-03-25] MEDS: MEMANTINE 10 MG TABLET. PO SCH (08:14)
[2018-03-25] MEDS: ASPIRIN 81 MG TAB.CHEW PO SCH (08:14)
[2018-03-25] MEDS: POLYETHYLENE GLYCOL 3350 17 GM PACKET. PO SCH (08:14)
[2018-03-25] MEDS: lamoTRIgine 150 MG TABLET. PO SCH (08:14)
[2018-03-25] MEDS: MULTIVITAMIN with MINERAL TABLET. PO SCH (08:14)
[2018-03-25] MEDS: LACTOBACILLUS RHAMNOSUS GG 1 CAPSULE. PO SCH ×2 (08:14→20:01)
[2018-03-25 16:40] VITALS: BP 133/75
[2018-03-25] MEDS: MIRTAZAPINE 7.5 MG TABLET. PO SCH (20:01)
[2018-03-25] MEDS: VENLAFAXINE XR 37.5 MG CAP.ER.24H. PO SCH (20:03)
--- NOTE | 2018-03-25 22:21 | PDOC ---
Exam Note: Tadeo Note: Please also refer to the separate dictated note~for this date of service dictated separately.~Patient seen individually. Discussed the patient with Nursing staff reviewed the chart.~Reviewed interim history and current functioning. Reviewed vital signs,~Labs/ Radiology~and current medications noted below. Continue current treatment with the changes noted in the dictated addendum note Assessment: Vital Signs: Vital Signs Date Time Temp Pulse Resp B/P (MAP) Pulse Ox O2 Delivery O2 Flow Rate FiO2 03/25/18 16:40 97.9 94 18 133/75 (94) 95 Room Air I&O Intake and Output 03/25/18 07:00 Intake Total 300 ml Balance 300 ml Intake Oral 300 ml # Bowel Movements 1 Current Medications: Meds: Current Medications Aspirin (Children'S Aspirin) 81 mg DAILYWBKFT PO Last administered on at 08:14; Start 03/11/18 at 08:00 Lamotrigine (LaMICtal) 75 mg DAILY PO ; Start 03/11/18 at 09:00; Stop 03/11/18 at 09:00; Status DC Memantine (Namenda) 10 mg BID PO Last administered on 03/25/18at 08:14; Start at 21:00; Stop 03/25/18 at 10:44; Status DC Multivitamins/ Calcium (Thera-M Plus) 1 tab DAILY PO Last administered on at 08:14; Start 03/11/18 at 09:00 Polyethylene Glycol (miraLAX) 17 gm DAILY PO Last administered on 03/25/18at 08: 14; Start 03/11/18 at 09:00 Risperidone (RisperDAL) 1 mg DAILY@1400 PO ; Start 03/11/18 at 14:00; Stop 03/11 at 14:00; Status DC Risperidone (RisperDAL) 0.5 mg DAILY PO ; Start 03/11/18 at 09:00; Stop at 09:00; Status DC Venlafaxine HCl (Effexor Xr) 75 mg DAILY PO ; Start 03/11/18 at 09:00; Stop at 09:00; Status DC Acetaminophen (Tylenol) 650 mg PRN Q6HRS PRN PO PAIN / TEMP; Start 03/10/18 at 15:00 Multi-Ingredient Ointment (Analgesic [place]) 1 teri PRN QID PRN TP MUSCLE PAIN; Start 03/10/18 at 15:00 Al Hydroxide/Mg Hydroxide (Mylanta Plus Xs) 15 ml PRN AFTMEALHC PRN PO DYSPEPSIA; Start 03/10/18 at 15:00 Magnesium Hydroxide (Milk Of Magnesia) 2,400 mg PRN QHS PRN PO CONSTIPATION Last administered on 03/20/18at 17:21; Start 03/10/18 at 15:00 Risperidone (RisperDAL) 0.5 mg BID@0900,1400 PO Last administered on 03/14/18at 14:51; Start 03/11/18 at 09:00; Stop 03/14/18 at 15:53; Status DC Olanzapine (ZyPREXA ZYDIS) 2.5 mg PRN Q2HR PRN PO agitation/aggression/ psychosis Last administered on 03/18/18at 06:49; Start 03/10/18 at 18:30 Lamotrigine (LaMICtal) 100 mg DAILY PO Last administered on 03/15/18at 09:55; Start 03/11/18 at 09:00; Stop 03/15/18 at 11:00; Status DC Venlafaxine HCl (Effexor Xr) 112.5 mg DAILY PO Last administered on 03/24/18at 10:15; Start 03/11/18 at 09:00; Stop 03/24/18 at 18:25; Status DC Mirtazapine (Remeron) 7.5 mg QHS PO Last administered on 03/25/18at 20:01; Start 03/11/18 at 21:00 Trazodone HCl (Desyrel) 50 mg PRN QHS PRN PO INSOMNIA Last administered on at 20:16; Start 03/11/18 at 20:30 Clonazepam (KlonoPIN) 0.5 mg TID PO Last administered on 03/15/18at 14:12; Start 03/12/18 at 14:00; Stop 03/15/18 at 18:46; Status DC Vitamin D (Vitamin D3) 50,000 unit WEEKLY PO Last administered on 03/20/18at 10: 06; Start 03/13/18 at 15:15 Risperidone (RisperDAL) 0.25 mg BID92 PO Last administered on 03/16/18 13:57; Start 03/15/18 at 09:00; Stop 03/16/18 at 19:00; Status DC Lamotrigine (LaMICtal) 150 mg DAILY PO Last administered on 03/25/18at 08:14; Start 03/16/18 at 09:00 Clonazepam (KlonoPIN) 0.5 mg BID PO Last administered on 03/18/18at 09:57; Start 03/15/18 at 21:00; Stop 03/18/18 at 11:04; Status DC Divalproex Sodium (Depakote Sprinkles) 125 mg 0900,1700 PO Last administered on 03/23/18at 16:46; Start 03/16/18 at 09:00; Stop 03/23/18 at 18:42; Status DC Risperidone (RisperDAL) 0.25 mg HS PO Last administered on 03/18/18at 20:17; Start 03/16/18 at 21:00; Stop 03/19/18 at 17:19; Status DC Clonazepam (KlonoPIN) 0.5 mg DAILY PO Last administered on 03/21/18at 08:37; Start 03/19/18 at 09:00; Stop 03/21/18 at 12:00; Status DC Cephalexin HCl (Keflex) 500 mg TID PO Last administered on 03/23/18at 13:35; Start 03/19/18 at 21:00; Stop 03/23/18 at 19:24; Status DC Lactobacillus Rhamnosus (Culturelle) 1 cap BID PO Last administered on at 20:01; Start 03/19/18 at 21:00 Venlafaxine HCl (Effexor Xr) 112.5 mg HS PO Last administered on 03/25/18at 20: 03; Start 03/25/18 at 21:00 Active Scripts Active Reported Multivitamins (Multivitamin) 1 Each Tablet 1 Each PO DAILY Aspirin 81 Mg Tab.chew 81 Mg PO DAILY Risperidone 1 Mg Tablet 1 Mg PO DAILY@1400 Venlafaxine Hcl Er (Venlafaxine Hcl) 75 Mg Cap.er.24h 75 Mg PO DAILY Namenda (Memantine Hcl) 10 Mg Tablet 10 Mg PO BID Lamotrigine 25 Mg Tablet 75 Mg PO DAILY Miralax (Polyethylene Glycol 3350) 17 Gm Powd.pack 17 Gm PO DAILY Risperdal (Risperidone) 0.5 Mg Tablet 0.5 Mg PO DAILY I have reviewed the current psychotropics carefully including drug interactions. Risk benefit ratio favors no change other than as noted in my dictated progress note. Diagnosis: Problems: (1) Anxiety disorder (2) Dementia in Alzheimer's disease with delusions (3) Dementia in Alzheimer's disease with delusions (4) Dementia in Alzheimer's disease with depression (5) Dementia, vascular, with delusions (6) Dementia, vascular, with depression (7) Impulse control disorder EVE BLANK MD Mar 25, 2018 22:21
[2018-03-26 06:31] VITALS: BP 114/73
[2018-03-26 08:22] LABS: BASO # 0.1 x10^3/uL (0.0-0.2); BASO % 1 % (0-3); EOS # 0.3 x10^3/uL (0.0-0.7); EOS % 2 % (0-3); HEMATOCRIT 39.3 % (39.0-53.0); LYMPH # 1.4 x10^3/uL (1.0-4.8); LYMPH % 9 % (24-48); MEAN CORPUSCULAR HEMOGLOBIN 30 pg (25-35); MEAN CORPUSCULAR HGB CONC 33 g/dL (31-37); MEAN CORPUSCULAR VOLUME 91 fL (79-100); MONO # 1.3 x10^3/uL (0.0-1.1); MONO % 9 % (0-9); NEUT # 12.1 x10^3uL (1.8-7.7); NEUT % 80 % (31-73); PLATELET COUNT 337 x10^3/uL (140-400); RED BLOOD COUNT 4.32 x10^6/uL (4.30-5.70); RED CELL DISTRIBUTION WIDTH 12.9 % (11.5-14.5); WHITE BLOOD COUNT 15.2 x10^3/uL (4.0-11.0)
[2018-03-26 08:31] LABS: ALBUMIN 3.1 g/dL (3.4-5.0); ALBUMIN/GLOBULIN RATIO 0.6 (1.0-1.7); CALCIUM 9.4 mg/dL (8.5-10.1); CREATININE 0.9 mg/dL (0.7-1.3); GFR 85.5; TOTAL BILIRUBIN 0.5 mg/dL (0.2-1.0); TOTAL PROTEIN 8.1 g/dL (6.4-8.2)
[2018-03-26] MEDS: LACTOBACILLUS RHAMNOSUS GG 1 CAPSULE. PO SCH ×2 (09:53→21:16)
[2018-03-26] MEDS: POLYETHYLENE GLYCOL 3350 17 GM PACKET. PO SCH (09:53)
[2018-03-26] MEDS: ASPIRIN 81 MG TAB.CHEW PO SCH (09:53)
[2018-03-26] MEDS: MULTIVITAMIN with MINERAL TABLET. PO SCH (09:53)
[2018-03-26] MEDS: lamoTRIgine 150 MG TABLET. PO SCH (09:53)
[2018-03-26] MEDS: IV DEXTROSE 5% 1,000 ML IV SCH (15:11)
[2018-03-26 16:28] VITALS: BP 113/70
[2018-03-26] MEDS: VENLAFAXINE XR 37.5 MG CAP.ER.24H. PO SCH (21:16)
[2018-03-26] MEDS: MIRTAZAPINE 7.5 MG TABLET. PO SCH (21:16)
--- NOTE | 2018-03-26 22:22 | PDOC ---
Exam Note: Tadeo Note: Please also refer to the separate dictated note~for this date of service dictated separately.~Patient seen individually. Discussed the patient with Nursing staff reviewed the chart.~Reviewed interim history and current functioning. Reviewed vital signs,~Labs/ Radiology~and current medications noted below. Continue current treatment with the changes noted in the dictated addendum note Assessment: Vital Signs: Vital Signs Date Time Temp Pulse Resp B/P (MAP) Pulse Ox O2 Delivery O2 Flow Rate FiO2 03/26/18 16:28 98.5 91 20 113/70 (84) 93 Room Air I&O Intake and Output 03/26/18 07:00 Intake Total 840 ml Balance 840 ml Intake Oral 840 ml Labs: Laboratory Tests Test 03/26/18 07:43 White Blood Count 15.2 x10^3/uL (4.0-11.0) H Red Blood Count 4.32 x10^6/uL (4.30-5.70) Hemoglobin 13.0 g/dL (13.0-17.5) Hematocrit 39.3 % (39.0-53.0) Mean Corpuscular Volume 91 fL (79-100) Mean Corpuscular Hemoglobin 30 pg (25-35) Mean Corpuscular Hemoglobin Concent 33 g/dL (31-37) Red Cell Distribution Width 12.9 % (11.5-14.5) Platelet Count 337 x10^3/uL (140-400) Neutrophils (%) (Auto) 80 % (31-73) H Lymphocytes (%) (Auto) 9 % (24-48) L Monocytes (%) (Auto) 9 % (0-9) Eosinophils (%) (Auto) 2 % (0-3) Basophils (%) (Auto) 1 % (0-3) Neutrophils # (Auto) 12.1 x10^3uL (1.8-7.7) H Lymphocytes # (Auto) 1.4 x10^3/uL (1.0-4.8) Monocytes # (Auto) 1.3 x10^3/uL (0.0-1.1) H Eosinophils # (Auto) 0.3 x10^3/uL (0.0-0.7) Basophils # (Auto) 0.1 x10^3/uL (0.0-0.2) Sodium Level 148 mmol/L (136-145) H Potassium Level 4.0 mmol/L (3.5-5.1) Chloride Level 109 mmol/L (98-107) H Carbon Dioxide Level 28 mmol/L (21-32) Anion Gap 11 (6-14) Blood Urea Nitrogen 32 mg/dL (8-26) H Creatinine 0.9 mg/dL (0.7-1.3) Estimated GFR (Cockcroft-Gault) 85.5 BUN/Creatinine Ratio 36 (6-20) H Glucose Level 128 mg/dL (70-99) H Calcium Level 9.4 mg/dL (8.5-10.1) Total Bilirubin 0.5 mg/dL (0.2-1.0) Aspartate Amino Transferase (AST) 42 U/L (15-37) H Alanine Aminotransferase (ALT) 50 U/L (16-63) Alkaline Phosphatase 145 U/L (46-116) H Total Protein 8.1 g/dL (6.4-8.2) Albumin 3.1 g/dL (3.4-5.0) L Albumin/Globulin Ratio 0.6 (1.0-1.7) L Current Medications: Meds: Current Medications Aspirin (Children'S Aspirin) 81 mg DAILYWBKFT PO Last administered on at 09:53; Start 03/11/18 at 08:00 Lamotrigine (LaMICtal) 75 mg DAILY PO ; Start 03/11/18 at 09:00; Stop 03/11/18 at 09:00; Status DC Memantine (Namenda) 10 mg BID PO Last administered on 03/25/18at 08:14; Start at 21:00; Stop 03/25/18 at 10:44; Status DC Multivitamins/ Calcium (Thera-M Plus) 1 tab DAILY PO Last administered on at 09:53; Start 03/11/18 at 09:00 Polyethylene Glycol (miraLAX) 17 gm DAILY PO Last administered on 03/26/18at 09: 53; Start 03/11/18 at 09:00 Risperidone (RisperDAL) 1 mg DAILY@1400 PO ; Start 03/11/18 at 14:00; Stop 03/11 at 14:00; Status DC Risperidone (RisperDAL) 0.5 mg DAILY PO ; Start 03/11/18 at 09:00; Stop at 09:00; Status DC Venlafaxine HCl (Effexor Xr) 75 mg DAILY PO ; Start 03/11/18 at 09:00; Stop at 09:00; Status DC Acetaminophen (Tylenol) 650 mg PRN Q6HRS PRN PO PAIN / TEMP; Start 03/10/18 at 15:00 Multi-Ingredient Ointment (Analgesic [place]) 1 teri PRN QID PRN TP MUSCLE PAIN; Start 03/10/18 at 15:00 Al Hydroxide/Mg Hydroxide (Mylanta Plus Xs) 15 ml PRN AFTMEALHC PRN PO DYSPEPSIA; Start 03/10/18 at 15:00 Magnesium Hydroxide (Milk Of Magnesia) 2,400 mg PRN QHS PRN PO CONSTIPATION Last administered on 03/20/18at 17:21; Start 03/10/18 at 15:00 Risperidone (RisperDAL) 0.5 mg BID@0900,1400 PO Last administered on 03/14/18at 14:51; Start 03/11/18 at 09:00; Stop 03/14/18 at 15:53; Status DC Olanzapine (ZyPREXA ZYDIS) 2.5 mg PRN Q2HR PRN PO agitation/aggression/ psychosis Last administered on 03/18/18at 06:49; Start 03/10/18 at 18:30 Lamotrigine (LaMICtal) 100 mg DAILY PO Last administered on 03/15/18at 09:55; Start 03/11/18 at 09:00; Stop 03/15/18 at 11:00; Status DC Venlafaxine HCl (Effexor Xr) 112.5 mg DAILY PO Last administered on 03/24/18at 10:15; Start 03/11/18 at 09:00; Stop 03/24/18 at 18:25; Status DC Mirtazapine (Remeron) 7.5 mg QHS PO Last administered on 03/26/18at 21:16; Start 03/11/18 at 21:00 Trazodone HCl (Desyrel) 50 mg PRN QHS PRN PO INSOMNIA Last administered on at 20:16; Start 03/11/18 at 20:30 Clonazepam (KlonoPIN) 0.5 mg TID PO Last administered on 03/15/18 14:12; Start 03/12/18 at 14:00; Stop 03/15/18 at 18:46; Status DC Vitamin D (Vitamin D3) 50,000 unit WEEKLY PO Last administered on 03/20/18 10: 06; Start 03/13/18 at 15:15 Risperidone (RisperDAL) 0.25 mg BID92 PO Last administered on 03/16/18 13:57; Start 03/15/18 at 09:00; Stop 03/16/18 at 19:00; Status DC Lamotrigine (LaMICtal) 150 mg DAILY PO Last administered on 03/26/18 09:53; Start 03/16/18 at 09:00 Clonazepam (KlonoPIN) 0.5 mg BID PO Last administered on 03/18/18 09:57; Start 03/15/18 at 21:00; Stop 03/18/18 at 11:04; Status DC Divalproex Sodium (Depakote Sprinkles) 125 mg 0900,1700 PO Last administered on 03/23/18at 16:46; Start 03/16/18 at 09:00; Stop 03/23/18 at 18:42; Status DC Risperidone (RisperDAL) 0.25 mg HS PO Last administered on 03/18/18at 20:17; Start 03/16/18 at 21:00; Stop 03/19/18 at 17:19; Status DC Clonazepam (KlonoPIN) 0.5 mg DAILY PO Last administered on 03/21/18at 08:37; Start 03/19/18 at 09:00; Stop 03/21/18 at 12:00; Status DC Cephalexin HCl (Keflex) 500 mg TID PO Last administered on 03/23/18 13:35; Start 03/19/18 at 21:00; Stop 03/23/18 at 19:24; Status DC Lactobacillus Rhamnosus (Culturelle) 1 cap BID PO Last administered on 21:16; Start 03/19/18 at 21:00 Venlafaxine HCl (Effexor Xr) 112.5 mg HS PO Last administered on 6/15/18at 21: 16; Start 03/25/18 at 21:00 Dextrose 1,000 ml @ 75 mls/hr [id number] IV Last administered on 03/26/18at 15:11 ; Start 03/26/18 at 13:30 Active Scripts Active Reported Multivitamins (Multivitamin) 1 Each Tablet 1 Each PO DAILY Aspirin 81 Mg Tab.chew 81 Mg PO DAILY Risperidone 1 Mg Tablet 1 Mg PO DAILY@1400 Venlafaxine Hcl Er (Venlafaxine Hcl) 75 Mg Cap.er.24h 75 Mg PO DAILY Namenda (Memantine Hcl) 10 Mg Tablet 10 Mg PO BID Lamotrigine 25 Mg Tablet 75 Mg PO DAILY Miralax (Polyethylene Glycol 3350) 17 Gm Powd.pack 17 Gm PO DAILY Risperdal (Risperidone) 0.5 Mg Tablet 0.5 Mg PO DAILY I have reviewed the current psychotropics carefully including drug interactions. Risk benefit ratio favors no change other than as noted in my dictated progress note. Diagnosis: Problems: (1) Anxiety disorder (2) Dementia in Alzheimer's disease with delusions (3) Dementia in Alzheimer's disease with delusions (4) Dementia in Alzheimer's disease with depression (5) Dementia, vascular, with delusions (6) Dementia, vascular, with depression (7) Impulse control disorder EVE BLANK MD Mar 26, 2018 22:22
--- NOTE | 2018-03-27 00:30 | PN ---
DATE: 03/25/2018 PSYCHIATRIC PROGRESS NOTE This late entry 03/25/2018 covers elements not covered in my initial note. SUBJECTIVE: Met with the patient in the evening, staffed at a treatment team meeting with the entire team in the morning and the patient's , Debra, attended together with the son. Chest x-ray is negative. Ultrasound is unremarkable other than cyst, left kidney. The patient is less drowsy since Depakote was discontinued. is requesting a swallow study and he said he believed his mouth was sore. I will defer to Dr. Tejada. He is more compliant with cares and medications. Slept 7-1/2 hours. REVIEW OF SYSTEMS: No CV, , pulmonary, eye system symptoms on review. Reliability is poor. MENTAL STATUS EXAM: Oriented to himself. Insight, judgment, recent and remote memory, attention, concentration, fund of knowledge is poor, consistent with his diagnoses mentioned in my initial note. PLAN: Continue current psychotropics and we stopped the Depakote. Maintain Effexor, Namenda, lamotrigine, in fact it is questionable if Namenda would be of any benefit. Continue Remeron along with Zyprexa and trazodone p.r.n. EVE BLANK MD DR: NBA/ariana JOB#: [id number] / [id number]
[2018-03-27] MEDS: IV DEXTROSE 5% 1,000 ML IV SCH ×2 (03:09→16:28)
--- NOTE | 2018-03-27 04:27 | PN ---
DATE: 03/24/2018 PSYCHIATRIC PROGRESS NOTE This is a late entry of 03/24/2018, covers elements not covered in my initial note of 03/24/2018. SUBJECTIVE: I met with the patient in the evening. The patient has been somewhat lethargic, drowsy, but better in the evening. Heart rate was increased. Blood pressure and temperature are improved. Ultrasound shows cyst in the left kidney. I will defer medical management to Dr. Tejada. Temperature was 100.7 in the morning, 98.9 in the evening. REVIEW OF SYSTEMS: Ambulation impaired with walker. No CV, , pulmonary, eye, ENT system symptoms on review. Reliability poor. MENTAL STATUS EXAM: Oriented to himself. Insight, judgment, recent and remote memory, attention, concentration, fund of knowledge poor, consistent with his diagnosis mentioned in my initial note. PLAN: Continue current psychotropics. Depakote has been discontinued. Maintain rest of the psychotropics. Adjust as indicated. MAN Toño BLANK MD DR: NBA/ariana JOB#: [id number] / [id number]
[2018-03-27 06:25] VITALS: BP 113/71
[2018-03-27 07:15] LABS: CALCIUM 8.9 mg/dL (8.5-10.1); CREATININE 0.9 mg/dL (0.7-1.3); GFR 85.5; POTASSIUM 3.4 mmol/L (3.5-5.1)
[2018-03-27] MEDS: ASPIRIN 81 MG TAB.CHEW PO SCH (08:48)
[2018-03-27] MEDS: POLYETHYLENE GLYCOL 3350 17 GM PACKET. PO SCH (08:48)
[2018-03-27] MEDS: MULTIVITAMIN with MINERAL TABLET. PO SCH (08:48)
[2018-03-27] MEDS: lamoTRIgine 150 MG TABLET. PO SCH (08:48)
[2018-03-27] MEDS: LACTOBACILLUS RHAMNOSUS GG 1 CAPSULE. PO SCH ×2 (08:48→19:34)
[2018-03-27] MEDS: CHOLECALCIFEROL (VITAMIN D3) 50,000 UNIT CAPSULE PO SCH (08:49)
[2018-03-27 16:05] VITALS: BP 129/79
[2018-03-27] MEDS ORDERED: POTASSIUM CHLORIDE 20 MEQ TABLET.ER. PO ONE (19:30)
[2018-03-27] MEDS: MIRTAZAPINE 7.5 MG TABLET. PO SCH (19:34)
[2018-03-27] MEDS: VENLAFAXINE XR 37.5 MG CAP.ER.24H. PO SCH (19:34)
--- NOTE | 2018-03-27 22:25 | PDOC ---
Exam Note: Tadeo Note: Please also refer to the separate dictated note~for this date of service dictated separately.~Patient seen individually. Discussed the patient with Nursing staff reviewed the chart.~Reviewed interim history and current functioning. Reviewed vital signs,~Labs/ Radiology~and current medications noted below. Continue current treatment with the changes noted in the dictated addendum note Assessment: Vital Signs: Vital Signs Date Time Temp Pulse Resp B/P (MAP) Pulse Ox O2 Delivery O2 Flow Rate FiO2 03/27/18 16:05 97.6 90 20 129/79 (96) 95 Room Air I&O Intake and Output 03/27/18 07:01 Intake Total 1862.67 ml Balance 1862.67 ml Intake Oral 960 ml IV Total 902.67 ml # Bowel Movements 1 Labs: Laboratory Tests Test 03/27/18 06:34 Sodium Level 146 mmol/L (136-145) H Potassium Level 3.4 mmol/L (3.5-5.1) L Chloride Level 108 mmol/L (98-107) H Carbon Dioxide Level 31 mmol/L (21-32) Anion Gap 7 (6-14) Blood Urea Nitrogen 26 mg/dL (8-26) Creatinine 0.9 mg/dL (0.7-1.3) Estimated GFR (Cockcroft-Gault) 85.5 Glucose Level 116 mg/dL (70-99) H Calcium Level 8.9 mg/dL (8.5-10.1) Current Medications: Meds: Current Medications Aspirin (Children'S Aspirin) 81 mg DAILYWBKFT PO Last administered on at 08:48; Start 03/11/18 at 08:00 Lamotrigine (LaMICtal) 75 mg DAILY PO ; Start 03/11/18 at 09:00; Stop 03/11/18 at 09:00; Status DC Memantine (Namenda) 10 mg BID PO Last administered on 03/25/18at 08:14; Start at 21:00; Stop 03/25/18 at 10:44; Status DC Multivitamins/ Calcium (Thera-M Plus) 1 tab DAILY PO Last administered on at 08:48; Start 03/11/18 at 09:00 Polyethylene Glycol (miraLAX) 17 gm DAILY PO Last administered on 03/27/18at 08: 48; Start 03/11/18 at 09:00 Risperidone (RisperDAL) 1 mg DAILY@1400 PO ; Start 03/11/18 at 14:00; Stop 03/11 at 14:00; Status DC Risperidone (RisperDAL) 0.5 mg DAILY PO ; Start 03/11/18 at 09:00; Stop at 09:00; Status DC Venlafaxine HCl (Effexor Xr) 75 mg DAILY PO ; Start 03/11/18 at 09:00; Stop at 09:00; Status DC Acetaminophen (Tylenol) 650 mg PRN Q6HRS PRN PO PAIN / TEMP; Start 03/10/18 at 15:00 Multi-Ingredient Ointment (Analgesic [place]) 1 teri PRN QID PRN TP MUSCLE PAIN; Start 03/10/18 at 15:00 Al Hydroxide/Mg Hydroxide (Mylanta Plus Xs) 15 ml PRN AFTMEALHC PRN PO DYSPEPSIA; Start 03/10/18 at 15:00 Magnesium Hydroxide (Milk Of Magnesia) 2,400 mg PRN QHS PRN PO CONSTIPATION Last administered on 03/20/18at 17:21; Start 03/10/18 at 15:00 Risperidone (RisperDAL) 0.5 mg BID@0900,1400 PO Last administered on 03/14/18at 14:51; Start 03/11/18 at 09:00; Stop 03/14/18 at 15:53; Status DC Olanzapine (ZyPREXA ZYDIS) 2.5 mg PRN Q2HR PRN PO agitation/aggression/ psychosis Last administered on 03/18/18at 06:49; Start 03/10/18 at 18:30 Lamotrigine (LaMICtal) 100 mg DAILY PO Last administered on 03/15/18at 09:55; Start 03/11/18 at 09:00; Stop 03/15/18 at 11:00; Status DC Venlafaxine HCl (Effexor Xr) 112.5 mg DAILY PO Last administered on 03/24/18at 10:15; Start 03/11/18 at 09:00; Stop 03/24/18 at 18:25; Status DC Mirtazapine (Remeron) 7.5 mg QHS PO Last administered on 03/27/18 19:34; Start 03/11/18 at 21:00 Trazodone HCl (Desyrel) 50 mg PRN QHS PRN PO INSOMNIA Last administered on 20:16; Start 03/11/18 at 20:30 Clonazepam (KlonoPIN) 0.5 mg TID PO Last administered on 03/15/18 14:12; Start 03/12/18 at 14:00; Stop 03/15/18 at 18:46; Status DC Vitamin D (Vitamin D3) 50,000 unit WEEKLY PO Last administered on 03/27/18 08: 49; Start 03/13/18 at 15:15 Risperidone (RisperDAL) 0.25 mg BID92 PO Last administered on 03/16/18 13:57; Start 03/15/18 at 09:00; Stop 03/16/18 at 19:00; Status DC Lamotrigine (LaMICtal) 150 mg DAILY PO Last administered on 03/27/18 08:48; Start 03/16/18 at 09:00 Clonazepam (KlonoPIN) 0.5 mg BID PO Last administered on 03/18/18 09:57; Start 03/15/18 at 21:00; Stop 03/18/18 at 11:04; Status DC Divalproex Sodium (Depakote Sprinkles) 125 mg 0900,1700 PO Last administered on 03/23/18 16:46; Start 03/16/18 at 09:00; Stop 03/23/18 at 18:42; Status DC Risperidone (RisperDAL) 0.25 mg HS PO Last administered on 03/18/18 20:17; Start 03/16/18 at 21:00; Stop 03/19/18 at 17:19; Status DC Clonazepam (KlonoPIN) 0.5 mg DAILY PO Last administered on 03/21/18 08:37; Start 03/19/18 at 09:00; Stop 03/21/18 at 12:00; Status DC Cephalexin HCl (Keflex) 500 mg TID PO Last administered on 03/23/18 13:35; Start 03/19/18 at 21:00; Stop 03/23/18 at 19:24; Status DC Lactobacillus Rhamnosus (Culturelle) 1 cap BID PO Last administered on 19:34; Start 03/19/18 at 21:00 Venlafaxine HCl (Effexor Xr) 112.5 mg HS PO Last administered on 03/27/18 19: 34; Start 03/25/18 at 21:00 Dextrose 1,000 ml @ 75 mls/hr [id number] IV Last administered on 03/27/18at 16:28 ; Start 03/26/18 at 13:30 Potassium Chloride (Klor-Con) 40 meq 1X ONCE PO Last administered on 19:35; Start 03/27/18 at 19:30; Stop 03/27/18 at 19:31; Status DC Active Scripts Active Reported Multivitamins (Multivitamin) 1 Each Tablet 1 Each PO DAILY Aspirin 81 Mg Tab.chew 81 Mg PO DAILY Risperidone 1 Mg Tablet 1 Mg PO DAILY@1400 Venlafaxine Hcl Er (Venlafaxine Hcl) 75 Mg Cap.er.24h 75 Mg PO DAILY Namenda (Memantine Hcl) 10 Mg Tablet 10 Mg PO BID Lamotrigine 25 Mg Tablet 75 Mg PO DAILY Miralax (Polyethylene Glycol 3350) 17 Gm Powd.pack 17 Gm PO DAILY Risperdal (Risperidone) 0.5 Mg Tablet 0.5 Mg PO DAILY I have reviewed the current psychotropics carefully including drug interactions. Risk benefit ratio favors no change other than as noted in my dictated progress note. Diagnosis: Problems: (1) Anxiety disorder (2) Dementia in Alzheimer's disease with delusions (3) Dementia in Alzheimer's disease with delusions (4) Dementia in Alzheimer's disease with depression (5) Dementia, vascular, with delusions (6) Dementia, vascular, with depression (7) Impulse control disorder EVE BLANK MD Mar 27, 2018 22:25
[2018-03-28] MEDS: IV DEXTROSE 5% 1,000 ML IV SCH ×2 (04:50→05:35)
[2018-03-28 06:00] VITALS: BP 162/68
[2018-03-28 07:06] LABS: BASO # 0.1 x10^3/uL (0.0-0.2); BASO % 1 % (0-3); EOS # 0.7 x10^3/uL (0.0-0.7); EOS % 5 % (0-3); HEMATOCRIT 36.3 % (39.0-53.0); HEMOGLOBIN 12.2 g/dL (13.0-17.5); LYMPH # 1.5 x10^3/uL (1.0-4.8); LYMPH % 12 % (24-48); MEAN CORPUSCULAR HEMOGLOBIN 30 pg (25-35); MEAN CORPUSCULAR HGB CONC 34 g/dL (31-37); MEAN CORPUSCULAR VOLUME 91 fL (79-100); MONO # 1.2 x10^3/uL (0.0-1.1); MONO % 9 % (0-9); NEUT # 9.4 x10^3uL (1.8-7.7); NEUT % 73 % (31-73); PLATELET COUNT 335 x10^3/uL (140-400); RED BLOOD COUNT 4.01 x10^6/uL (4.30-5.70); RED CELL DISTRIBUTION WIDTH 12.6 % (11.5-14.5); WHITE BLOOD COUNT 12.9 x10^3/uL (4.0-11.0)
[2018-03-28 07:29] LABS: ALBUMIN 2.6 g/dL (3.4-5.0); ALBUMIN/GLOBULIN RATIO 0.6 (1.0-1.7); CALCIUM 8.6 mg/dL (8.5-10.1); CREATININE 0.9 mg/dL (0.7-1.3); GFR 85.5; POTASSIUM 4.2 mmol/L (3.5-5.1); TOTAL BILIRUBIN 0.5 mg/dL (0.2-1.0); TOTAL PROTEIN 6.9 g/dL (6.4-8.2)
[2018-03-28] MEDS: MULTIVITAMIN with MINERAL TABLET. PO SCH (08:15)
[2018-03-28] MEDS: ASPIRIN 81 MG TAB.CHEW PO SCH (08:15)
[2018-03-28] MEDS: lamoTRIgine 150 MG TABLET. PO SCH (08:15)
[2018-03-28] MEDS: LACTOBACILLUS RHAMNOSUS GG 1 CAPSULE. PO SCH ×2 (08:15→19:32)
[2018-03-28] MEDS: POLYETHYLENE GLYCOL 3350 17 GM PACKET. PO SCH (08:15)
[2018-03-28 15:43] VITALS: BP 116/76
[2018-03-28] MEDS: VENLAFAXINE XR 37.5 MG CAP.ER.24H. PO SCH (19:32)
[2018-03-28] MEDS: MIRTAZAPINE 7.5 MG TABLET. PO SCH (19:32)
--- NOTE | 2018-03-28 20:57 | PDOC ---
Exam Note: Tadeo Note: Please also refer to the separate dictated note~for this date of service dictated separately.~Patient seen individually. Discussed the patient with Nursing staff reviewed the chart.~Reviewed interim history and current functioning. Reviewed vital signs,~Labs/ Radiology~and current medications noted below. Continue current treatment with the changes noted in the dictated addendum note Assessment: Vital Signs: Vital Signs Date Time Temp Pulse Resp B/P (MAP) Pulse Ox O2 Delivery O2 Flow Rate FiO2 03/28/18 15:43 98.0 58 19 116/76 (89) 93 03/27/18 16:05 Room Air I&O Intake and Output 03/28/18 07:01 Intake Total 2284 ml Balance 2284 ml Intake Oral 365 ml IV Total 1919 ml # Bowel Movements 1 Labs: Laboratory Tests Test 03/28/18 06:53 White Blood Count 12.9 x10^3/uL (4.0-11.0) H Red Blood Count 4.01 x10^6/uL (4.30-5.70) L Hemoglobin 12.2 g/dL (13.0-17.5) L Hematocrit 36.3 % (39.0-53.0) L Mean Corpuscular Volume 91 fL (79-100) Mean Corpuscular Hemoglobin 30 pg (25-35) Mean Corpuscular Hemoglobin Concent 34 g/dL (31-37) Red Cell Distribution Width 12.6 % (11.5-14.5) Platelet Count 335 x10^3/uL (140-400) Neutrophils (%) (Auto) 73 % (31-73) Lymphocytes (%) (Auto) 12 % (24-48) L Monocytes (%) (Auto) 9 % (0-9) Eosinophils (%) (Auto) 5 % (0-3) H Basophils (%) (Auto) 1 % (0-3) Neutrophils # (Auto) 9.4 x10^3uL (1.8-7.7) H Lymphocytes # (Auto) 1.5 x10^3/uL (1.0-4.8) Monocytes # (Auto) 1.2 x10^3/uL (0.0-1.1) H Eosinophils # (Auto) 0.7 x10^3/uL (0.0-0.7) Basophils # (Auto) 0.1 x10^3/uL (0.0-0.2) Sodium Level 141 mmol/L (136-145) Potassium Level 4.2 mmol/L (3.5-5.1) Chloride Level 105 mmol/L (98-107) Carbon Dioxide Level 28 mmol/L (21-32) Anion Gap 8 (6-14) Blood Urea Nitrogen 20 mg/dL (8-26) Creatinine 0.9 mg/dL (0.7-1.3) Estimated GFR (Cockcroft-Gault) 85.5 BUN/Creatinine Ratio 22 (6-20) H Glucose Level 113 mg/dL (70-99) H Calcium Level 8.6 mg/dL (8.5-10.1) Total Bilirubin 0.5 mg/dL (0.2-1.0) Aspartate Amino Transferase (AST) 30 U/L (15-37) Alanine Aminotransferase (ALT) 42 U/L (16-63) Alkaline Phosphatase 129 U/L (46-116) H Total Protein 6.9 g/dL (6.4-8.2) Albumin 2.6 g/dL (3.4-5.0) L Albumin/Globulin Ratio 0.6 (1.0-1.7) L Current Medications: Meds: Current Medications Aspirin (Children'S Aspirin) 81 mg DAILYWBKFT PO Last administered on at 08:15; Start 03/11/18 at 08:00 Lamotrigine (LaMICtal) 75 mg DAILY PO ; Start 03/11/18 at 09:00; Stop 03/11/18 at 09:00; Status DC Memantine (Namenda) 10 mg BID PO Last administered on 03/25/18at 08:14; Start at 21:00; Stop 03/25/18 at 10:44; Status DC Multivitamins/ Calcium (Thera-M Plus) 1 tab DAILY PO Last administered on at 08:15; Start 03/11/18 at 09:00 Polyethylene Glycol (miraLAX) 17 gm DAILY PO Last administered on 03/28/18at 08: 15; Start 03/11/18 at 09:00 Risperidone (RisperDAL) 1 mg DAILY@1400 PO ; Start 03/11/18 at 14:00; Stop 03/11 at 14:00; Status DC Risperidone (RisperDAL) 0.5 mg DAILY PO ; Start 03/11/18 at 09:00; Stop at 09:00; Status DC Venlafaxine HCl (Effexor Xr) 75 mg DAILY PO ; Start 03/11/18 at 09:00; Stop at 09:00; Status DC Acetaminophen (Tylenol) 650 mg PRN Q6HRS PRN PO PAIN / TEMP; Start 03/10/18 at 15:00 Multi-Ingredient Ointment (Analgesic [place]) 1 teri PRN QID PRN TP MUSCLE PAIN; Start 03/10/18 at 15:00 Al Hydroxide/Mg Hydroxide (Mylanta Plus Xs) 15 ml PRN AFTMEALHC PRN PO DYSPEPSIA; Start 03/10/18 at 15:00 Magnesium Hydroxide (Milk Of Magnesia) 2,400 mg PRN QHS PRN PO CONSTIPATION Last administered on 03/20/18at 17:21; Start 03/10/18 at 15:00 Risperidone (RisperDAL) 0.5 mg BID@0900,1400 PO Last administered on 03/14/18at 14:51; Start 03/11/18 at 09:00; Stop 03/14/18 at 15:53; Status DC Olanzapine (ZyPREXA ZYDIS) 2.5 mg PRN Q2HR PRN PO agitation/aggression/ psychosis Last administered on 03/18/18at 06:49; Start 03/10/18 at 18:30 Lamotrigine (LaMICtal) 100 mg DAILY PO Last administered on 03/15/18at 09:55; Start 03/11/18 at 09:00; Stop 03/15/18 at 11:00; Status DC Venlafaxine HCl (Effexor Xr) 112.5 mg DAILY PO Last administered on 03/24/18at 10:15; Start 03/11/18 at 09:00; Stop 03/24/18 at 18:25; Status DC Mirtazapine (Remeron) 7.5 mg QHS PO Last administered on 03/28/18at 19:32; Start 03/11/18 at 21:00 Trazodone HCl (Desyrel) 50 mg PRN QHS PRN PO INSOMNIA Last administered on 20:16; Start 03/11/18 at 20:30 Clonazepam (KlonoPIN) 0.5 mg TID PO Last administered on 03/15/18 14:12; Start 03/12/18 at 14:00; Stop 03/15/18 at 18:46; Status DC Vitamin D (Vitamin D3) 50,000 unit WEEKLY PO Last administered on 03/27/18 08: 49; Start 03/13/18 at 15:15 Risperidone (RisperDAL) 0.25 mg BID92 PO Last administered on 03/16/18 13:57; Start 03/15/18 at 09:00; Stop 03/16/18 at 19:00; Status DC Lamotrigine (LaMICtal) 150 mg DAILY PO Last administered on 03/28/18 08:15; Start 03/16/18 at 09:00 Clonazepam (KlonoPIN) 0.5 mg BID PO Last administered on 03/18/18 09:57; Start 03/15/18 at 21:00; Stop 03/18/18 at 11:04; Status DC Divalproex Sodium (Depakote Sprinkles) 125 mg 0900,1700 PO Last administered on 03/23/18 16:46; Start 03/16/18 at 09:00; Stop 03/23/18 at 18:42; Status DC Risperidone (RisperDAL) 0.25 mg HS PO Last administered on 03/18/18 20:17; Start 03/16/18 at 21:00; Stop 03/19/18 at 17:19; Status DC Clonazepam (KlonoPIN) 0.5 mg DAILY PO Last administered on 03/21/18at 08:37; Start 03/19/18 at 09:00; Stop 03/21/18 at 12:00; Status DC Cephalexin HCl (Keflex) 500 mg TID PO Last administered on 03/23/18 13:35; Start 03/19/18 at 21:00; Stop 03/23/18 at 19:24; Status DC Lactobacillus Rhamnosus (Culturelle) 1 cap BID PO Last administered on at 19:32; Start 03/19/18 at 21:00 Venlafaxine HCl (Effexor Xr) 112.5 mg HS PO Last administered on 03/28/18at 19: 32; Start 03/25/18 at 21:00 Dextrose 1,000 ml @ 75 mls/hr [id number] IV Last administered on 03/28/18at 05:35 ; Start 03/26/18 at 13:30; Stop 03/28/18 at 15:55; Status DC Potassium Chloride (Klor-Con) 40 meq 1X ONCE PO Last administered on at 19:35; Start 03/27/18 at 19:30; Stop 03/27/18 at 19:31; Status DC Active Scripts Active Reported Multivitamins (Multivitamin) 1 Each Tablet 1 Each PO DAILY Aspirin 81 Mg Tab.chew 81 Mg PO DAILY Risperidone 1 Mg Tablet 1 Mg PO DAILY@1400 Venlafaxine Hcl Er (Venlafaxine Hcl) 75 Mg Cap.er.24h 75 Mg PO DAILY Namenda (Memantine Hcl) 10 Mg Tablet 10 Mg PO BID Lamotrigine 25 Mg Tablet 75 Mg PO DAILY Miralax (Polyethylene Glycol 3350) 17 Gm Powd.pack 17 Gm PO DAILY Risperdal (Risperidone) 0.5 Mg Tablet 0.5 Mg PO DAILY I have reviewed the current psychotropics carefully including drug interactions. Risk benefit ratio favors no change other than as noted in my dictated progress note. Diagnosis: Problems: (1) Anxiety disorder (2) Dementia in Alzheimer's disease with delusions (3) Dementia in Alzheimer's disease with delusions (4) Dementia in Alzheimer's disease with depression (5) Dementia, vascular, with delusions (6) Dementia, vascular, with depression (7) Impulse control disorder EVE BLANK MD Mar 28, 2018 20:57
--- NOTE | 2018-03-29 02:21 | PN ---
DATE: 03/26/2018 PSYCHIATRIC PROGRESS NOTE This late entry 03/26/2018, covers elements not covered in my initial note. SUBJECTIVE: Met with the patient in the evening. The patient has been somewhat dehydrated and is on IV fluids, per Dr. Tejada, D5W, BUN was elevated at 30, WBCs have dropped down to 15.2, sodium 148. REVIEW OF SYSTEMS: No CV, , pulmonary, eye system symptoms on review. Reliability is poor, gait unsteady. MENTAL STATUS EXAM: Oriented to himself. Insight, judgment, recent, remote memory, attention, concentration, fund of knowledge is poor, consistent with his diagnoses mentioned in my initial note. PLAN: Continue psychotropics from initial note and IV fluids for dehydration. MAN Toño BLANK MD DR: NBA/ariana JOB#: [id number] / [id number]
[2018-03-29 06:18] VITALS: BP 101/69
[2018-03-29] MEDS: lamoTRIgine 150 MG TABLET. PO SCH (08:10)
[2018-03-29] MEDS: POLYETHYLENE GLYCOL 3350 17 GM PACKET. PO SCH (08:10)
[2018-03-29] MEDS: LACTOBACILLUS RHAMNOSUS GG 1 CAPSULE. PO SCH ×2 (08:10→19:36)
[2018-03-29] MEDS: ASPIRIN 81 MG TAB.CHEW PO SCH (08:10)
[2018-03-29] MEDS: MULTIVITAMIN with MINERAL TABLET. PO SCH (08:11)
[2018-03-29] MEDS: DULoxetine HCL 30 MG CAPSULE.DR PO SCH (08:11)
[2018-03-29 08:31] LABS: BASO # 0.1 x10^3/uL (0.0-0.2); BASO % 1 % (0-3); EOS # 0.5 x10^3/uL (0.0-0.7); EOS % 4 % (0-3); HEMATOCRIT 38.3 % (39.0-53.0); LYMPH # 1.5 x10^3/uL (1.0-4.8); LYMPH % 11 % (24-48); MEAN CORPUSCULAR HEMOGLOBIN 31 pg (25-35); MEAN CORPUSCULAR HGB CONC 34 g/dL (31-37); MEAN CORPUSCULAR VOLUME 90 fL (79-100); MONO % 8 % (0-9); NEUT # 9.8 x10^3uL (1.8-7.7); NEUT % 76 % (31-73); PLATELET COUNT 408 x10^3/uL (140-400); RED BLOOD COUNT 4.28 x10^6/uL (4.30-5.70); RED CELL DISTRIBUTION WIDTH 12.5 % (11.5-14.5); WHITE BLOOD COUNT 12.9 x10^3/uL (4.0-11.0)
[2018-03-29 09:50] LABS: ALBUMIN 2.9 g/dL (3.4-5.0); ALBUMIN/GLOBULIN RATIO 0.6 (1.0-1.7); CALCIUM 9.1 mg/dL (8.5-10.1); CREATININE 0.9 mg/dL (0.7-1.3); GFR 85.5; POTASSIUM 3.8 mmol/L (3.5-5.1); TOTAL BILIRUBIN 0.4 mg/dL (0.2-1.0); TOTAL PROTEIN 7.4 g/dL (6.4-8.2)
--- NOTE | 2018-03-29 12:14 | PN ---
DATE: 03/27/2018 PSYCHIATRIC PROGRESS NOTE This is a late entry, date of service 03/27/2018, covers elements not covered in my initial note 03/27/2018. SUBJECTIVE: I met with the patient in the evening. The patient remains withdrawn, cooperative with cares, confused with poor eye contact. REVIEW OF SYSTEMS: Ambulation impaired, in wheelchair. No CV, , pulmonary, eye, ENT system symptoms on review. Reliability poor. MENTAL STATUS EXAM: Oriented to himself. Insight, judgment, recent and remote memory, attention, concentration, fund of knowledge poor, consistent with his diagnoses. He remains on IV fluids for his dehydration. IMPRESSION: Major neurocognitive disorder, Alzheimer, vascular with depression, delusion, behavioral disturbance. PLAN: Continue IV fluids to rehydrate the patient, maintain lamotrigine, Effexor along with Remeron and trazodone. Consider changing Effexor to Cymbalta depending on his progress. EVE BLANK MD DR: NBA/ariana JOB#: [id number] / [id number]
--- NOTE | 2018-03-29 12:17 | PN ---
DATE: 03/28/2018 PSYCHIATRIC PROGRESS NOTE This is a late entry 03/28/2018, covers elements not covered in my initial note. SUBJECTIVE: I met with the patient evening of 03/28/2018. The patient's IV has been discontinued. Albumin is low at 2.6, oral intake is poor. He is quite confused, bit a plastic spoon as if it was food. Nursing staff will change this to stainless steel utensils. Diet has been changed to mechanical soft. REVIEW OF SYSTEMS: Ambulation impaired, in wheelchair. No CV, , pulmonary, eye, ENT system symptoms on review. MENTAL STATUS EXAM: Oriented to himself. Insight, judgment, recent and remote memory, attention, concentration, fund of knowledge poor, consistent with his diagnoses. He is not very verbal. Eye contact poor, often responses monosyllabic . LABORATORY DATA: Reviewed. IMPRESSION: Major neurocognitive disorder, Alzheimer, vascular with delusion, depression, behavioral disturbance. Rest unchanged. PLAN: Change Effexor to Cymbalta 30 mg a day for 3 days, then 60 mg a day thereafter. Continue lamotrigine, Remeron, trazodone, and Zyprexa. The latter to p.r.n. as before. EVE BLANK MD DR: NBA/ariana JOB#: [id number] / [id number]
[2018-03-29 16:13] VITALS: BP 117/68
[2018-03-29] MEDS: MIRTAZAPINE 7.5 MG TABLET. PO SCH (19:36)
--- NOTE | 2018-03-29 20:58 | PDOC ---
Exam Note: Tadeo Note: Please also refer to the separate dictated note~for this date of service dictated separately.~Patient seen individually. Discussed the patient with Nursing staff reviewed the chart.~Reviewed interim history and current functioning. Reviewed vital signs,~Labs/ Radiology~and current medications noted below. Continue current treatment with the changes noted in the dictated addendum note Assessment: Vital Signs: Vital Signs Date Time Temp Pulse Resp B/P (MAP) Pulse Ox O2 Delivery O2 Flow Rate FiO2 03/29/18 16:13 98.6 93 18 117/68 (84) 96 Room Air I&O Intake and Output 03/29/18 07:01 Intake Total 725 ml Balance 725 ml Intake Oral 725 ml Labs: Laboratory Tests Test 03/29/18 07:25 White Blood Count 12.9 x10^3/uL (4.0-11.0) H Red Blood Count 4.28 x10^6/uL (4.30-5.70) L Hemoglobin 13.0 g/dL (13.0-17.5) Hematocrit 38.3 % (39.0-53.0) L Mean Corpuscular Volume 90 fL (79-100) Mean Corpuscular Hemoglobin 31 pg (25-35) Mean Corpuscular Hemoglobin Concent 34 g/dL (31-37) Red Cell Distribution Width 12.5 % (11.5-14.5) Platelet Count 408 x10^3/uL (140-400) H Neutrophils (%) (Auto) 76 % (31-73) H Lymphocytes (%) (Auto) 11 % (24-48) L Monocytes (%) (Auto) 8 % (0-9) Eosinophils (%) (Auto) 4 % (0-3) H Basophils (%) (Auto) 1 % (0-3) Neutrophils # (Auto) 9.8 x10^3uL (1.8-7.7) H Lymphocytes # (Auto) 1.5 x10^3/uL (1.0-4.8) Monocytes # (Auto) 1.0 x10^3/uL (0.0-1.1) Eosinophils # (Auto) 0.5 x10^3/uL (0.0-0.7) Basophils # (Auto) 0.1 x10^3/uL (0.0-0.2) Sodium Level 140 mmol/L (136-145) Potassium Level 3.8 mmol/L (3.5-5.1) Chloride Level 102 mmol/L (98-107) Carbon Dioxide Level 28 mmol/L (21-32) Anion Gap 10 (6-14) Blood Urea Nitrogen 19 mg/dL (8-26) Creatinine 0.9 mg/dL (0.7-1.3) Estimated GFR (Cockcroft-Gault) 85.5 BUN/Creatinine Ratio 21 (6-20) H Glucose Level 107 mg/dL (70-99) H Calcium Level 9.1 mg/dL (8.5-10.1) Total Bilirubin 0.4 mg/dL (0.2-1.0) Aspartate Amino Transferase (AST) 30 U/L (15-37) Alanine Aminotransferase (ALT) 45 U/L (16-63) Alkaline Phosphatase 136 U/L (46-116) H Total Protein 7.4 g/dL (6.4-8.2) Albumin 2.9 g/dL (3.4-5.0) L Albumin/Globulin Ratio 0.6 (1.0-1.7) L Current Medications: Meds: Current Medications Aspirin (Children'S Aspirin) 81 mg DAILYWBKFT PO Last administered on at 08:10; Start 03/11/18 at 08:00 Lamotrigine (LaMICtal) 75 mg DAILY PO ; Start 03/11/18 at 09:00; Stop 03/11/18 at 09:00; Status DC Memantine (Namenda) 10 mg BID PO Last administered on 03/25/18at 08:14; Start at 21:00; Stop 03/25/18 at 10:44; Status DC Multivitamins/ Calcium (Thera-M Plus) 1 tab DAILY PO Last administered on at 08:11; Start 03/11/18 at 09:00 Polyethylene Glycol (miraLAX) 17 gm DAILY PO Last administered on 03/29/18at 08: 10; Start 03/11/18 at 09:00 Risperidone (RisperDAL) 1 mg DAILY@1400 PO ; Start 03/11/18 at 14:00; Stop 03/11 at 14:00; Status DC Risperidone (RisperDAL) 0.5 mg DAILY PO ; Start 03/11/18 at 09:00; Stop at 09:00; Status DC Venlafaxine HCl (Effexor Xr) 75 mg DAILY PO ; Start 03/11/18 at 09:00; Stop at 09:00; Status DC Acetaminophen (Tylenol) 650 mg PRN Q6HRS PRN PO PAIN / TEMP; Start 03/10/18 at 15:00 Multi-Ingredient Ointment (Analgesic [place]) 1 teri PRN QID PRN TP MUSCLE PAIN; Start 03/10/18 at 15:00 Al Hydroxide/Mg Hydroxide (Mylanta Plus Xs) 15 ml PRN AFTMEALHC PRN PO DYSPEPSIA; Start 03/10/18 at 15:00 Magnesium Hydroxide (Milk Of Magnesia) 2,400 mg PRN QHS PRN PO CONSTIPATION Last administered on 03/20/18at 17:21; Start 03/10/18 at 15:00 Risperidone (RisperDAL) 0.5 mg BID@0900,1400 PO Last administered on 03/14/18at 14:51; Start 03/11/18 at 09:00; Stop 03/14/18 at 15:53; Status DC Olanzapine (ZyPREXA ZYDIS) 2.5 mg PRN Q2HR PRN PO agitation/aggression/ psychosis Last administered on 03/29/18at 14:30; Start 03/10/18 at 18:30 Lamotrigine (LaMICtal) 100 mg DAILY PO Last administered on 03/15/18at 09:55; Start 03/11/18 at 09:00; Stop 03/15/18 at 11:00; Status DC Venlafaxine HCl (Effexor Xr) 112.5 mg DAILY PO Last administered on 03/24/18at 10:15; Start 03/11/18 at 09:00; Stop 03/24/18 at 18:25; Status DC Mirtazapine (Remeron) 7.5 mg QHS PO Last administered on 03/29/18at 19:36; Start 03/11/18 at 21:00 Trazodone HCl (Desyrel) 50 mg PRN QHS PRN PO INSOMNIA Last administered on at 20:16; Start 03/11/18 at 20:30 Clonazepam (KlonoPIN) 0.5 mg TID PO Last administered on 03/15/18 14:12; Start 03/12/18 at 14:00; Stop 03/15/18 at 18:46; Status DC Vitamin D (Vitamin D3) 50,000 unit WEEKLY PO Last administered on 03/27/18at 08: 49; Start 03/13/18 at 15:15 Risperidone (RisperDAL) 0.25 mg BID92 PO Last administered on 03/16/18 13:57; Start 03/15/18 at 09:00; Stop 03/16/18 at 19:00; Status DC Lamotrigine (LaMICtal) 150 mg DAILY PO Last administered on 03/29/18 08:10; Start 03/16/18 at 09:00 Clonazepam (KlonoPIN) 0.5 mg BID PO Last administered on 03/18/18 09:57; Start 03/15/18 at 21:00; Stop 03/18/18 at 11:04; Status DC Divalproex Sodium (Depakote Sprinkles) 125 mg 0900,1700 PO Last administered on 03/23/18at 16:46; Start 03/16/18 at 09:00; Stop 03/23/18 at 18:42; Status DC Risperidone (RisperDAL) 0.25 mg HS PO Last administered on 03/18/18at 20:17; Start 03/16/18 at 21:00; Stop 03/19/18 at 17:19; Status DC Clonazepam (KlonoPIN) 0.5 mg DAILY PO Last administered on 03/21/18at 08:37; Start 03/19/18 at 09:00; Stop 03/21/18 at 12:00; Status DC Cephalexin HCl (Keflex) 500 mg TID PO Last administered on 03/23/18 13:35; Start 03/19/18 at 21:00; Stop 03/23/18 at 19:24; Status DC Lactobacillus Rhamnosus (Culturelle) 1 cap BID PO Last administered on at 19:36; Start 03/19/18 at 21:00 Venlafaxine HCl (Effexor Xr) 112.5 mg HS PO Last administered on 03/28/18at 19: 32; Start 03/25/18 at 21:00; Stop 03/28/18 at 21:54; Status DC Dextrose 1,000 ml @ 75 mls/hr [id number] IV Last administered on 03/28/18at 05:35 ; Start 03/26/18 at 13:30; Stop 03/28/18 at 15:55; Status DC Potassium Chloride (Klor-Con) 40 meq 1X ONCE PO Last administered on at 19:35; Start 03/27/18 at 19:30; Stop 03/27/18 at 19:31; Status DC Duloxetine HCl (Cymbalta) 30 mg DAILY PO Last administered on 03/29/18at 08:11; Start 03/29/18 at 09:00; Stop 03/31/18 at 10:00 Duloxetine HCl (Cymbalta) 60 mg DAILY PO ; Start 04/01/18 at 09:00 Active Scripts Active Reported Multivitamins (Multivitamin) 1 Each Tablet 1 Each PO DAILY Aspirin 81 Mg Tab.chew 81 Mg PO DAILY Risperidone 1 Mg Tablet 1 Mg PO DAILY@1400 Venlafaxine Hcl Er (Venlafaxine Hcl) 75 Mg Cap.er.24h 75 Mg PO DAILY Namenda (Memantine Hcl) 10 Mg Tablet 10 Mg PO BID Lamotrigine 25 Mg Tablet 75 Mg PO DAILY Miralax (Polyethylene Glycol 3350) 17 Gm Powd.pack 17 Gm PO DAILY Risperdal (Risperidone) 0.5 Mg Tablet 0.5 Mg PO DAILY I have reviewed the current psychotropics carefully including drug interactions. Risk benefit ratio favors no change other than as noted in my dictated progress note. Diagnosis: Problems: (1) Anxiety disorder (2) Dementia in Alzheimer's disease with delusions (3) Dementia in Alzheimer's disease with delusions (4) Dementia in Alzheimer's disease with depression (5) Dementia, vascular, with delusions (6) Dementia, vascular, with depression (7) Impulse control disorder EVE BLANK MD Mar 29, 2018 20:58
[2018-03-30 06:05] VITALS: BP 125/73
[2018-03-30] MEDS: DULoxetine HCL 30 MG CAPSULE.DR PO SCH (07:33)
[2018-03-30] MEDS: ASPIRIN 81 MG TAB.CHEW PO SCH (07:33)
[2018-03-30] MEDS: POLYETHYLENE GLYCOL 3350 17 GM PACKET. PO SCH (07:33)
[2018-03-30] MEDS: MULTIVITAMIN with MINERAL TABLET. PO SCH (07:33)
[2018-03-30] MEDS: lamoTRIgine 150 MG TABLET. PO SCH (07:33)
[2018-03-30] MEDS: LACTOBACILLUS RHAMNOSUS GG 1 CAPSULE. PO SCH ×2 (07:34→19:40)
[2018-03-30 15:49] VITALS: BP 138/63
[2018-03-30] MEDS: MIRTAZAPINE 7.5 MG TABLET. PO SCH (19:39)
--- NOTE | 2018-03-30 20:58 | PDOC ---
Exam Note: Tadeo Note: Please also refer to the separate dictated note~for this date of service dictated separately.~Patient seen individually. Discussed the patient with Nursing staff reviewed the chart.~Reviewed interim history and current functioning. Reviewed vital signs,~Labs/ Radiology~and current medications noted below. Continue current treatment with the changes noted in the dictated addendum note Assessment: Vital Signs: Vital Signs Date Time Temp Pulse Resp B/P (MAP) Pulse Ox O2 Delivery O2 Flow Rate FiO2 03/30/18 15:49 97.8 102 21 138/63 (88) 93 03/29/18 16:13 Room Air I&O Intake and Output 03/30/18 07:00 Intake Total 700 ml Balance 700 ml Intake Oral 700 ml # Voids 1 # Bowel Movements 2 Current Medications: Meds: Current Medications Aspirin (Children'S Aspirin) 81 mg DAILYWBKFT PO Last administered on at 07:33; Start 03/11/18 at 08:00 Lamotrigine (LaMICtal) 75 mg DAILY PO ; Start 03/11/18 at 09:00; Stop 03/11/18 at 09:00; Status DC Memantine (Namenda) 10 mg BID PO Last administered on 03/25/18at 08:14; Start at 21:00; Stop 03/25/18 at 10:44; Status DC Multivitamins/ Calcium (Thera-M Plus) 1 tab DAILY PO Last administered on at 07:33; Start 03/11/18 at 09:00 Polyethylene Glycol (miraLAX) 17 gm DAILY PO Last administered on 03/30/18at 07: 33; Start 03/11/18 at 09:00 Risperidone (RisperDAL) 1 mg DAILY@1400 PO ; Start 03/11/18 at 14:00; Stop 03/11 at 14:00; Status DC Risperidone (RisperDAL) 0.5 mg DAILY PO ; Start 03/11/18 at 09:00; Stop at 09:00; Status DC Venlafaxine HCl (Effexor Xr) 75 mg DAILY PO ; Start 03/11/18 at 09:00; Stop at 09:00; Status DC Acetaminophen (Tylenol) 650 mg PRN Q6HRS PRN PO PAIN / TEMP; Start 03/10/18 at 15:00 Multi-Ingredient Ointment (Analgesic [place]) 1 teri PRN QID PRN TP MUSCLE PAIN; Start 03/10/18 at 15:00 Al Hydroxide/Mg Hydroxide (Mylanta Plus Xs) 15 ml PRN AFTMEALHC PRN PO DYSPEPSIA; Start 03/10/18 at 15:00 Magnesium Hydroxide (Milk Of Magnesia) 2,400 mg PRN QHS PRN PO CONSTIPATION Last administered on 03/20/18at 17:21; Start 03/10/18 at 15:00 Risperidone (RisperDAL) 0.5 mg BID@0900,1400 PO Last administered on 03/14/18 14:51; Start 03/11/18 at 09:00; Stop 03/14/18 at 15:53; Status DC Olanzapine (ZyPREXA ZYDIS) 2.5 mg PRN Q2HR PRN PO agitation/aggression/ psychosis Last administered on 03/29/18at 14:30; Start 03/10/18 at 18:30 Lamotrigine (LaMICtal) 100 mg DAILY PO Last administered on 03/15/18at 09:55; Start 03/11/18 at 09:00; Stop 03/15/18 at 11:00; Status DC Venlafaxine HCl (Effexor Xr) 112.5 mg DAILY PO Last administered on 03/24/18at 10:15; Start 03/11/18 at 09:00; Stop 03/24/18 at 18:25; Status DC Mirtazapine (Remeron) 7.5 mg QHS PO Last administered on 03/30/18at 19:39; Start 03/11/18 at 21:00 Trazodone HCl (Desyrel) 50 mg PRN QHS PRN PO INSOMNIA Last administered on 20:16; Start 03/11/18 at 20:30 Clonazepam (KlonoPIN) 0.5 mg TID PO Last administered on 03/15/18 14:12; Start 03/12/18 at 14:00; Stop 03/15/18 at 18:46; Status DC Vitamin D (Vitamin D3) 50,000 unit WEEKLY PO Last administered on 03/27/18at 08: 49; Start 03/13/18 at 15:15 Risperidone (RisperDAL) 0.25 mg BID92 PO Last administered on 03/16/18 13:57; Start 03/15/18 at 09:00; Stop 03/16/18 at 19:00; Status DC Lamotrigine (LaMICtal) 150 mg DAILY PO Last administered on 03/30/18 07:33; Start 03/16/18 at 09:00 Clonazepam (KlonoPIN) 0.5 mg BID PO Last administered on 03/18/18at 09:57; Start 03/15/18 at 21:00; Stop 03/18/18 at 11:04; Status DC Divalproex Sodium (Depakote Sprinkles) 125 mg 0900,1700 PO Last administered on 03/23/18at 16:46; Start 03/16/18 at 09:00; Stop 03/23/18 at 18:42; Status DC Risperidone (RisperDAL) 0.25 mg HS PO Last administered on 03/18/18at 20:17; Start 03/16/18 at 21:00; Stop 03/19/18 at 17:19; Status DC Clonazepam (KlonoPIN) 0.5 mg DAILY PO Last administered on 03/21/18at 08:37; Start 03/19/18 at 09:00; Stop 03/21/18 at 12:00; Status DC Cephalexin HCl (Keflex) 500 mg TID PO Last administered on 03/23/18at 13:35; Start 03/19/18 at 21:00; Stop 03/23/18 at 19:24; Status DC Lactobacillus Rhamnosus (Culturelle) 1 cap BID PO Last administered on at 19:40; Start 03/19/18 at 21:00 Venlafaxine HCl (Effexor Xr) 112.5 mg HS PO Last administered on 03/28/18at 19: 32; Start 03/25/18 at 21:00; Stop 03/28/18 at 21:54; Status DC Dextrose 1,000 ml @ 75 mls/hr [id number] IV Last administered on 03/28/18at 05:35 ; Start 03/26/18 at 13:30; Stop 03/28/18 at 15:55; Status DC Potassium Chloride (Klor-Con) 40 meq 1X ONCE PO Last administered on at 19:35; Start 03/27/18 at 19:30; Stop 03/27/18 at 19:31; Status DC Duloxetine HCl (Cymbalta) 30 mg DAILY PO Last administered on 03/30/18at 07:33; Start 03/29/18 at 09:00; Stop 03/31/18 at 10:00 Duloxetine HCl (Cymbalta) 60 mg DAILY PO ; Start 04/01/18 at 09:00 Active Scripts Active Reported Multivitamins (Multivitamin) 1 Each Tablet 1 Each PO DAILY Aspirin 81 Mg Tab.chew 81 Mg PO DAILY Risperidone 1 Mg Tablet 1 Mg PO DAILY@1400 Venlafaxine Hcl Er (Venlafaxine Hcl) 75 Mg Cap.er.24h 75 Mg PO DAILY Namenda (Memantine Hcl) 10 Mg Tablet 10 Mg PO BID Lamotrigine 25 Mg Tablet 75 Mg PO DAILY Miralax (Polyethylene Glycol 3350) 17 Gm Powd.pack 17 Gm PO DAILY Risperdal (Risperidone) 0.5 Mg Tablet 0.5 Mg PO DAILY I have reviewed the current psychotropics carefully including drug interactions. Risk benefit ratio favors no change other than as noted in my dictated progress note. Diagnosis: Problems: (1) Anxiety disorder (2) Dementia in Alzheimer's disease with delusions (3) Dementia in Alzheimer's disease with delusions (4) Dementia in Alzheimer's disease with depression (5) Dementia, vascular, with delusions (6) Dementia, vascular, with depression (7) Impulse control disorder EVE BLANK MD Mar 30, 2018 20:58
[2018-03-31 05:59] VITALS: BP 106/62
[2018-03-31] MEDS: POLYETHYLENE GLYCOL 3350 17 GM PACKET. PO SCH (08:26)
[2018-03-31] MEDS: MULTIVITAMIN with MINERAL TABLET. PO SCH (08:26)
[2018-03-31] MEDS: DULoxetine HCL 30 MG CAPSULE.DR PO SCH (08:27)
[2018-03-31] MEDS: lamoTRIgine 150 MG TABLET. PO SCH (08:28)
[2018-03-31] MEDS: ASPIRIN 81 MG TAB.CHEW PO SCH (08:28)
[2018-03-31] MEDS: LACTOBACILLUS RHAMNOSUS GG 1 CAPSULE. PO SCH ×2 (08:28→19:46)
--- NOTE | 2018-03-31 09:54 | PN ---
DATE: 03/29/2018 This is a late entry, 03/29/2018, covers the elements not covered in my initial note. SUBJECTIVE: I met with the patient in the evening. He did well the previous evening and during the day until about 1430 when he was somewhat anxious, agitated according to nursing staff and some relation to his sister, Perla. REVIEW OF SYSTEMS: No aggression noted. No CV, , pulmonary, eye, ENT system symptoms on review. Reliability poor. Gait unsteady in wheelchair. MENTAL STATUS EXAM: Oriented to himself. Insight, judgment, recent and remote memory, attention, concentration, fund of knowledge poor, consistent with his diagnosis as mentioned in my initial note. PLAN: Continue current psychotropics and Effexor has been changed to Cymbalta. I will adjust gradually as tolerated. MAN Toño BLANK MD DR: NBA/ariana JOB#: [id number] / [id number]
[2018-03-31 13:36] LABS: BASO # 0.1 x10^3/uL (0.0-0.2); BASO % 1 % (0-3); EOS # 0.6 x10^3/uL (0.0-0.7); EOS % 4 % (0-3); HEMATOCRIT 37.2 % (39.0-53.0); HEMOGLOBIN 12.6 g/dL (13.0-17.5); LYMPH # 1.8 x10^3/uL (1.0-4.8); LYMPH % 13 % (24-48); MEAN CORPUSCULAR HEMOGLOBIN 30 pg (25-35); MEAN CORPUSCULAR HGB CONC 34 g/dL (31-37); MEAN CORPUSCULAR VOLUME 90 fL (79-100); MONO # 1.1 x10^3/uL (0.0-1.1); MONO % 8 % (0-9); NEUT % 74 % (31-73); PLATELET COUNT 432 x10^3/uL (140-400); RED BLOOD COUNT 4.15 x10^6/uL (4.30-5.70); RED CELL DISTRIBUTION WIDTH 12.8 % (11.5-14.5); WHITE BLOOD COUNT 13.6 x10^3/uL (4.0-11.0)
[2018-03-31 13:40] LABS: ALBUMIN/GLOBULIN RATIO 0.7 (1.0-1.7); CREATININE 0.9 mg/dL (0.7-1.3); GFR 85.5; POTASSIUM 3.8 mmol/L (3.5-5.1); TOTAL BILIRUBIN 0.4 mg/dL (0.2-1.0); TOTAL PROTEIN 7.4 g/dL (6.4-8.2)
--- NOTE | 2018-03-31 15:21 | PN ---
DATE: 03/30/2018 PSYCHIATRIC PROGRESS NOTE This is a late entry 03/30/2018 covers elements not covered in my initial note 03/30/2018. SUBJECTIVE: I met with the patient in the evening. The patient slept 7-1/4 hours previous evening, remains withdrawn, but not aggressive. He has lost 9 pounds weight since admission. REVIEW OF SYSTEMS: No CV, , pulmonary, eye system symptoms on review. Reliability poor. Gait unsteady in wheelchair. MENTAL STATUS EXAM: Oriented to himself. Insight, judgment, recent and remote memory, attention, concentration, fund of knowledge poor, consistent with his diagnosis. IMPRESSION: Major neurocognitive disorder, Alzheimer, vascular with delusion, depression. Rest unchanged. PLAN: Continue current psychotropics, Cymbalta is gradually increased to 60 mg a day. Maintain lamotrigine along with Zyprexa p.r.n., Remeron 7.5 mg at bedtime, trazodone at bedtime p.r.n. insomnia. MAN Toño BLANK MD DR: NBA/ariana JOB#: [id number] / [id number]
[2018-03-31 17:04] VITALS: BP 126/61
[2018-03-31] MEDS: MIRTAZAPINE 7.5 MG TABLET. PO SCH (19:46)
--- NOTE | 2018-03-31 20:46 | PDOC ---
Exam Note: Tadeo Note: Please also refer to the separate dictated note~for this date of service dictated separately.~Patient seen individually. Discussed the patient with Nursing staff reviewed the chart.~Reviewed interim history and current functioning. Reviewed vital signs,~Labs/ Radiology~and current medications noted below. Continue current treatment with the changes noted in the dictated addendum note Assessment: Vital Signs: Vital Signs Date Time Temp Pulse Resp B/P (MAP) Pulse Ox O2 Delivery O2 Flow Rate FiO2 03/31/18 17:04 97.2 96 18 126/61 (82) 97 03/29/18 16:13 Room Air I&O Intake and Output 03/31/18 07:00 Intake Total 960 ml Balance 960 ml Intake Oral 960 ml # Voids 2 # Bowel Movements 3 Labs: Laboratory Tests Test 03/31/18 13:20 White Blood Count 13.6 x10^3/uL (4.0-11.0) H Red Blood Count 4.15 x10^6/uL (4.30-5.70) L Hemoglobin 12.6 g/dL (13.0-17.5) L Hematocrit 37.2 % (39.0-53.0) L Mean Corpuscular Volume 90 fL (79-100) Mean Corpuscular Hemoglobin 30 pg (25-35) Mean Corpuscular Hemoglobin Concent 34 g/dL (31-37) Red Cell Distribution Width 12.8 % (11.5-14.5) Platelet Count 432 x10^3/uL (140-400) H Neutrophils (%) (Auto) 74 % (31-73) H Lymphocytes (%) (Auto) 13 % (24-48) L Monocytes (%) (Auto) 8 % (0-9) Eosinophils (%) (Auto) 4 % (0-3) H Basophils (%) (Auto) 1 % (0-3) Neutrophils # (Auto) 10.0 x10^3uL (1.8-7.7) H Lymphocytes # (Auto) 1.8 x10^3/uL (1.0-4.8) Monocytes # (Auto) 1.1 x10^3/uL (0.0-1.1) Eosinophils # (Auto) 0.6 x10^3/uL (0.0-0.7) Basophils # (Auto) 0.1 x10^3/uL (0.0-0.2) Sodium Level 138 mmol/L (136-145) Potassium Level 3.8 mmol/L (3.5-5.1) Chloride Level 99 mmol/L (98-107) Carbon Dioxide Level 31 mmol/L (21-32) Anion Gap 8 (6-14) Blood Urea Nitrogen 16 mg/dL (8-26) Creatinine 0.9 mg/dL (0.7-1.3) Estimated GFR (Cockcroft-Gault) 85.5 BUN/Creatinine Ratio 18 (6-20) Glucose Level 111 mg/dL (70-99) H Calcium Level 9.0 mg/dL (8.5-10.1) Total Bilirubin 0.4 mg/dL (0.2-1.0) Aspartate Amino Transferase (AST) 27 U/L (15-37) Alanine Aminotransferase (ALT) 37 U/L (16-63) Alkaline Phosphatase 129 U/L (46-116) H Total Protein 7.4 g/dL (6.4-8.2) Albumin 3.0 g/dL (3.4-5.0) L Albumin/Globulin Ratio 0.7 (1.0-1.7) L Current Medications: Meds: Current Medications Aspirin (Children'S Aspirin) 81 mg DAILYWBKFT PO Last administered on at 08:28; Start 03/11/18 at 08:00 Lamotrigine (LaMICtal) 75 mg DAILY PO ; Start 03/11/18 at 09:00; Stop 03/11/18 at 09:00; Status DC Memantine (Namenda) 10 mg BID PO Last administered on 03/25/18at 08:14; Start at 21:00; Stop 03/25/18 at 10:44; Status DC Multivitamins/ Calcium (Thera-M Plus) 1 tab DAILY PO Last administered on at 08:26; Start 03/11/18 at 09:00 Polyethylene Glycol (miraLAX) 17 gm DAILY PO Last administered on 03/31/18at 08: 26; Start 03/11/18 at 09:00 Risperidone (RisperDAL) 1 mg DAILY@1400 PO ; Start 03/11/18 at 14:00; Stop 03/11 at 14:00; Status DC Risperidone (RisperDAL) 0.5 mg DAILY PO ; Start 03/11/18 at 09:00; Stop at 09:00; Status DC Venlafaxine HCl (Effexor Xr) 75 mg DAILY PO ; Start 03/11/18 at 09:00; Stop at 09:00; Status DC Acetaminophen (Tylenol) 650 mg PRN Q6HRS PRN PO PAIN / TEMP; Start 03/10/18 at 15:00 Multi-Ingredient Ointment (Analgesic [place]) 1 teri PRN QID PRN TP MUSCLE PAIN; Start 03/10/18 at 15:00 Al Hydroxide/Mg Hydroxide (Mylanta Plus Xs) 15 ml PRN AFTMEALHC PRN PO DYSPEPSIA; Start 03/10/18 at 15:00 Magnesium Hydroxide (Milk Of Magnesia) 2,400 mg PRN QHS PRN PO CONSTIPATION Last administered on 03/20/18at 17:21; Start 03/10/18 at 15:00 Risperidone (RisperDAL) 0.5 mg BID@0900,1400 PO Last administered on 03/14/18at 14:51; Start 03/11/18 at 09:00; Stop 03/14/18 at 15:53; Status DC Olanzapine (ZyPREXA ZYDIS) 2.5 mg PRN Q2HR PRN PO agitation/aggression/ psychosis Last administered on 03/29/18at 14:30; Start 03/10/18 at 18:30 Lamotrigine (LaMICtal) 100 mg DAILY PO Last administered on 03/15/18at 09:55; Start 03/11/18 at 09:00; Stop 03/15/18 at 11:00; Status DC Venlafaxine HCl (Effexor Xr) 112.5 mg DAILY PO Last administered on 03/24/18at 10:15; Start 03/11/18 at 09:00; Stop 03/24/18 at 18:25; Status DC Mirtazapine (Remeron) 7.5 mg QHS PO Last administered on 03/31/18at 19:46; Start 03/11/18 at 21:00 Trazodone HCl (Desyrel) 50 mg PRN QHS PRN PO INSOMNIA Last administered on 20:16; Start 03/11/18 at 20:30 Clonazepam (KlonoPIN) 0.5 mg TID PO Last administered on 03/15/18 14:12; Start 03/12/18 at 14:00; Stop 03/15/18 at 18:46; Status DC Vitamin D (Vitamin D3) 50,000 unit WEEKLY PO Last administered on 03/27/18 08: 49; Start 03/13/18 at 15:15 Risperidone (RisperDAL) 0.25 mg BID92 PO Last administered on 03/16/18 13:57; Start 03/15/18 at 09:00; Stop 03/16/18 at 19:00; Status DC Lamotrigine (LaMICtal) 150 mg DAILY PO Last administered on 03/31/18 08:28; Start 03/16/18 at 09:00 Clonazepam (KlonoPIN) 0.5 mg BID PO Last administered on 03/18/18 09:57; Start 03/15/18 at 21:00; Stop 03/18/18 at 11:04; Status DC Divalproex Sodium (Depakote Sprinkles) 125 mg 0900,1700 PO Last administered on 03/23/18 16:46; Start 03/16/18 at 09:00; Stop 03/23/18 at 18:42; Status DC Risperidone (RisperDAL) 0.25 mg HS PO Last administered on 03/18/18 20:17; Start 03/16/18 at 21:00; Stop 03/19/18 at 17:19; Status DC Clonazepam (KlonoPIN) 0.5 mg DAILY PO Last administered on 03/21/18at 08:37; Start 03/19/18 at 09:00; Stop 03/21/18 at 12:00; Status DC Cephalexin HCl (Keflex) 500 mg TID PO Last administered on 03/23/18 13:35; Start 03/19/18 at 21:00; Stop 03/23/18 at 19:24; Status DC Lactobacillus Rhamnosus (Culturelle) 1 cap BID PO Last administered on at 19:46; Start 03/19/18 at 21:00 Venlafaxine HCl (Effexor Xr) 112.5 mg HS PO Last administered on 03/28/18at 19: 32; Start 03/25/18 at 21:00; Stop 03/28/18 at 21:54; Status DC Dextrose 1,000 ml @ 75 mls/hr [id number] IV Last administered on 03/28/18at 05:35 ; Start 03/26/18 at 13:30; Stop 03/28/18 at 15:55; Status DC Potassium Chloride (Klor-Con) 40 meq 1X ONCE PO Last administered on at 19:35; Start 03/27/18 at 19:30; Stop 03/27/18 at 19:31; Status DC Duloxetine HCl (Cymbalta) 30 mg DAILY PO Last administered on 03/31/18at 08:27; Start 03/29/18 at 09:00; Stop 03/31/18 at 10:00; Status DC Duloxetine HCl (Cymbalta) 60 mg DAILY PO ; Start 04/01/18 at 09:00 Active Scripts Active Reported Multivitamins (Multivitamin) 1 Each Tablet 1 Each PO DAILY Aspirin 81 Mg Tab.chew 81 Mg PO DAILY Risperidone 1 Mg Tablet 1 Mg PO DAILY@1400 Venlafaxine Hcl Er (Venlafaxine Hcl) 75 Mg Cap.er.24h 75 Mg PO DAILY Namenda (Memantine Hcl) 10 Mg Tablet 10 Mg PO BID Lamotrigine 25 Mg Tablet 75 Mg PO DAILY Miralax (Polyethylene Glycol 3350) 17 Gm Powd.pack 17 Gm PO DAILY Risperdal (Risperidone) 0.5 Mg Tablet 0.5 Mg PO DAILY I have reviewed the current psychotropics carefully including drug interactions. Risk benefit ratio favors no change other than as noted in my dictated progress note. Diagnosis: Problems: (1) Anxiety disorder (2) Dementia in Alzheimer's disease with delusions (3) Dementia in Alzheimer's disease with delusions (4) Dementia in Alzheimer's disease with depression (5) Dementia, vascular, with delusions (6) Dementia, vascular, with depression (7) Impulse control disorder EVE BLANK MD Mar 31, 2018 20:46
[2018-03-31] MEDS ORDERED: ACET160S PO (22:46)
[2018-03-31] MEDS ORDERED: CHOL500021 PO (22:47)
[2018-03-31] MEDS ORDERED: DULO60CA6 PO (22:49)
[2018-03-31] MEDS ORDERED: MAG30ORA2 PO (22:52)
[2018-03-31] MEDS ORDERED: LACT1CAP21 PO (22:54)
[2018-03-31] MEDS ORDERED: MAGN400O7 PO (22:55)
[2018-03-31] MEDS ORDERED: METH29OI TP (23:02)
[2018-03-31] MEDS ORDERED: MIRT15TA PO (23:05)
[2018-03-31] MEDS ORDERED: OLAN5TAB5 PO (23:07)
[2018-03-31] MEDS ORDERED: TRAZ50TA15 PO (23:10)
[2018-04-01 05:49] VITALS: BP 121/65
[2018-04-01] MEDS: MULTIVITAMIN with MINERAL TABLET. PO SCH (08:09)
[2018-04-01] MEDS: ASPIRIN 81 MG TAB.CHEW PO SCH (08:09)
[2018-04-01] MEDS: LACTOBACILLUS RHAMNOSUS GG 1 CAPSULE. PO SCH (08:09)
[2018-04-01] MEDS: lamoTRIgine 150 MG TABLET. PO SCH (08:09)
[2018-04-01] MEDS: POLYETHYLENE GLYCOL 3350 17 GM PACKET. PO SCH (08:10)
[2018-04-01] MEDS ORDERED: DULoxetine HCL 60 MG CAPSULE.DR PO SCH (09:00)
--- NOTE | 2018-04-01 21:02 | PDOC ---
Exam Note: Tadeo Note: Please also refer to the separate dictated note~for this date of service dictated separately.~Patient seen individually. Discussed the patient with Nursing staff reviewed the chart.~Reviewed interim history and current functioning. Reviewed vital signs,~Labs/ Radiology~and current medications noted below. Continue current treatment with the changes noted in the dictated addendum note Assessment: Vital Signs: Vital Signs Date Time Temp Pulse Resp B/P (MAP) Pulse Ox O2 Delivery O2 Flow Rate FiO2 04/01/18 05:49 97.5 98 22 121/65 (83) 95 03/29/18 16:13 Room Air I&O Intake and Output 04/01/18 07:00 Intake Total 660 ml Balance 660 ml Intake Oral 660 ml # Voids 1 # Bowel Movements 1 Current Medications: Meds: Current Medications Aspirin (Children'S Aspirin) 81 mg DAILYWBKFT PO Last administered on at 08:09; Start 03/11/18 at 08:00; Stop 04/01/18 at 11:48; Status DC Lamotrigine (LaMICtal) 75 mg DAILY PO ; Start 03/11/18 at 09:00; Stop 03/11/18 at 09:00; Status DC Memantine (Namenda) 10 mg BID PO Last administered on 03/25/18at 08:14; Start at 21:00; Stop 03/25/18 at 10:44; Status DC Multivitamins/ Calcium (Thera-M Plus) 1 tab DAILY PO Last administered on at 08:09; Start 03/11/18 at 09:00; Stop 04/01/18 at 11:48; Status DC Polyethylene Glycol (miraLAX) 17 gm DAILY PO Last administered on 04/01/18at 08: 10; Start 03/11/18 at 09:00; Stop 04/01/18 at 11:48; Status DC Risperidone (RisperDAL) 1 mg DAILY@1400 PO ; Start 03/11/18 at 14:00; Stop 03/11 at 14:00; Status DC Risperidone (RisperDAL) 0.5 mg DAILY PO ; Start 03/11/18 at 09:00; Stop at 09:00; Status DC Venlafaxine HCl (Effexor Xr) 75 mg DAILY PO ; Start 03/11/18 at 09:00; Stop at 09:00; Status DC Acetaminophen (Tylenol) 650 mg PRN Q6HRS PRN PO PAIN / TEMP; Start 03/10/18 at 15:00; Stop 04/01/18 at 11:48; Status DC Multi-Ingredient Ointment (Analgesic [place]) 1 josselin PRN QID PRN TP MUSCLE PAIN; Start 03/10/18 at 15:00; Stop 04/01/18 at 11:48; Status DC Al Hydroxide/Mg Hydroxide (Mylanta Plus Xs) 15 ml PRN AFTMEALHC PRN PO DYSPEPSIA; Start 03/10/18 at 15:00; Stop 04/01/18 at 11:48; Status DC Magnesium Hydroxide (Milk Of Magnesia) 2,400 mg PRN QHS PRN PO CONSTIPATION Last administered on 03/20/18at 17:21; Start 03/10/18 at 15:00; Stop 04/01/18 at 11:48; Status DC Risperidone (RisperDAL) 0.5 mg BID@0900,1400 PO Last administered on 03/14/18at 14:51; Start 03/11/18 at 09:00; Stop 03/14/18 at 15:53; Status DC Olanzapine (ZyPREXA ZYDIS) 2.5 mg PRN Q2HR PRN PO agitation/aggression/ psychosis Last administered on 03/29/18at 14:30; Start 03/10/18 at 18:30; Stop at 11:48; Status DC Lamotrigine (LaMICtal) 100 mg DAILY PO Last administered on 03/15/18at 09:55; Start 03/11/18 at 09:00; Stop 03/15/18 at 11:00; Status DC Venlafaxine HCl (Effexor Xr) 112.5 mg DAILY PO Last administered on 03/24/18at 10:15; Start 03/11/18 at 09:00; Stop 03/24/18 at 18:25; Status DC Mirtazapine (Remeron) 7.5 mg QHS PO Last administered on 03/31/18at 19:46; Start 03/11/18 at 21:00; Stop 04/01/18 at 11:48; Status DC Trazodone HCl (Desyrel) 50 mg PRN QHS PRN PO INSOMNIA Last administered on 20:16; Start 03/11/18 at 20:30; Stop 04/01/18 at 11:48; Status DC Clonazepam (KlonoPIN) 0.5 mg TID PO Last administered on 03/15/18 14:12; Start 03/12/18 at 14:00; Stop 03/15/18 at 18:46; Status DC Vitamin D (Vitamin D3) 50,000 unit WEEKLY PO Last administered on 03/27/18at 08: 49; Start 03/13/18 at 15:15; Stop 04/01/18 at 11:48; Status DC Risperidone (RisperDAL) 0.25 mg BID92 PO Last administered on 03/16/18 13:57; Start 03/15/18 at 09:00; Stop 03/16/18 at 19:00; Status DC Lamotrigine (LaMICtal) 150 mg DAILY PO Last administered on 04/01/18 08:09; Start 03/16/18 at 09:00; Stop 04/01/18 at 11:48; Status DC Clonazepam (KlonoPIN) 0.5 mg BID PO Last administered on 03/18/18 09:57; Start 03/15/18 at 21:00; Stop 03/18/18 at 11:04; Status DC Divalproex Sodium (Depakote Sprinkles) 125 mg 0900,1700 PO Last administered on 03/23/18 16:46; Start 03/16/18 at 09:00; Stop 03/23/18 at 18:42; Status DC Risperidone (RisperDAL) 0.25 mg HS PO Last administered on 03/18/18 20:17; Start 03/16/18 at 21:00; Stop 03/19/18 at 17:19; Status DC Clonazepam (KlonoPIN) 0.5 mg DAILY PO Last administered on 03/21/18at 08:37; Start 03/19/18 at 09:00; Stop 03/21/18 at 12:00; Status DC Cephalexin HCl (Keflex) 500 mg TID PO Last administered on 03/23/18at 13:35; Start 03/19/18 at 21:00; Stop 03/23/18 at 19:24; Status DC Lactobacillus Rhamnosus (Culturelle) 1 cap BID PO Last administered on at 08:09; Start 03/19/18 at 21:00; Stop 04/01/18 at 11:48; Status DC Venlafaxine HCl (Effexor Xr) 112.5 mg HS PO Last administered on 03/28/18at 19: 32; Start 03/25/18 at 21:00; Stop 03/28/18 at 21:54; Status DC Dextrose 1,000 ml @ 75 mls/hr [id number] IV Last administered on 03/28/18at 05:35 ; Start 03/26/18 at 13:30; Stop 03/28/18 at 15:55; Status DC Potassium Chloride (Klor-Con) 40 meq 1X ONCE PO Last administered on at 19:35; Start 03/27/18 at 19:30; Stop 03/27/18 at 19:31; Status DC Duloxetine HCl (Cymbalta) 30 mg DAILY PO Last administered on 03/31/18at 08:27; Start 03/29/18 at 09:00; Stop 03/31/18 at 10:00; Status DC Duloxetine HCl (Cymbalta) 60 mg DAILY PO Last administered on 04/01/18at 08:10; Start 04/01/18 at 09:00; Stop 04/01/18 at 11:48; Status DC Active Scripts Active Reported Trazodone Hcl 50 Mg Tablet 50 Mg PO PRN QHS PRN Zyprexa Zydis (Olanzapine) 5 Mg Tab.rapdis 2.5 Mg PO PRN Q2HR PRN Remeron (Mirtazapine) 15 Mg Tablet 7.5 Mg PO HS Analgesic [place] (Methyl Salicylate/Menthol) 28 Gm Oint...g. 1 Josselin TP PRN QID PRN Milk Of Magnesia (Magnesium Hydroxide) 400 Mg/5 Ml Oral.susp 400 Mg PO PRN DAILY PRN Culturelle (Lactobacillus Rhamnosus Gg) 1 Each Capsule 1 Each PO BID Mag-Al Plus Xs Suspension (Mag Hydrox/Al Hydrox/Simeth) 30 Ml Oral.susp 15 Ml PO PRN AFTMEALHC PRN Cymbalta (Duloxetine Hcl) 60 Mg Capsule.dr 60 Mg PO DAILY D3-50 (Cholecalciferol (Vitamin D3)) 50,000 Unit Capsule 50,000 Unit PO WEEKLY ON THURSDAY Acetaminophen 160 Mg/5 Ml Solution 650 Mg PO PRN Q6HRS PRN Multivitamins (Multivitamin) 1 Each Tablet 1 Each PO DAILY Aspirin 81 Mg Tab.chew 81 Mg PO DAILY Lamotrigine 25 Mg Tablet 150 Mg PO DAILY Miralax (Polyethylene Glycol 3350) 17 Gm Powd.pack 17 Gm PO DAILY I have reviewed the current psychotropics carefully including drug interactions. Risk benefit ratio favors no change other than as noted in my dictated progress note. Diagnosis: Problems: (1) Anxiety disorder (2) Dementia in Alzheimer's disease with delusions (3) Dementia in Alzheimer's disease with delusions (4) Dementia in Alzheimer's disease with depression (5) Dementia, vascular, with delusions (6) Dementia, vascular, with depression (7) Impulse control disorder EVE BLANK MD Apr 01, 2018 21:02
--- NOTE | 2018-04-02 13:52 | DS ---
DATE OF DISCHARGE: 04/01/2018 DISCHARGE SUMMARY AND PSYCHIATRIC PROGRESS NOTE This is a late entry for 04/01/2018 and covers elements not covered in my initial note of 04/01/2018. REASON FOR ADMISSION: Please refer to the admission history for details. Briefly, the patient is a 62-year-old male who is referred to us by his primary care physician after he became extremely agitated, threw a chair at the adult daycare center. He has been agitated, aggressive with family members at home, unmanageable, behaviors have been deemed dangerous, worsening dementia, paranoia. He is referred for inpatient psychiatric stabilization. 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 SIGNIFICANT FINDINGS AND CLINICAL COURSE: Following admission, the patient was seen daily individually from a psychiatric standpoint by myself, followed medically per Dr. Tejada/Dr. Knight. He remained quite confused, withdrawn, intermittently agitated. Adjustments were made in his psychotropics. He seemed to respond to a combination of lamotrigine 150 mg daily, which is something he had taken prior to admission. Cymbalta was 60 mg a day, Zyprexa p.r.n., Remeron 7.5 mg at bedtime, trazodone 50 mg at bedtime p.r.n., may repeat x 1 for insomnia. Gradually, his mood appeared to improve. He was less irritable, less paranoid. No active suicidal or homicidal ideation prior to discharge. CONDITION AT DISCHARGE: Improved prior to discharge. REVIEW OF SYSTEMS: Ambulation impaired, in wheelchair. No CV, , pulmonary, eye system symptoms on review. MENTAL STATUS EXAM: Oriented to himself. Insight, judgment, recent and remote memory, attention, concentration, fund of knowledge poor, consistent with his diagnosis. FAMILY HISTORY: Significant Alzheimers' dementia and his mother around the age of 60. FINAL DIAGNOSES: Major neurocognitive disorder, Alzheimer, vascular with delusion, depression, behavioral disturbance; anxiety disorder, unspecified; impulse control disorder, unspecified. Rest unchanged from admission. DISCHARGE MEDICATIONS: Please refer to the EMRAD. DISCHARGE INSTRUCTIONS: Outpatient psychiatric and medical followup at the nursing facility. Time for discharge day management is greater than 30 minutes. MAN Toño BLANK MD DR: NBA/ariana JOB#: [id number] / [id number]
== END 2018-04-01 11:01 | DRG 57 ==
LOC: ER 10:04 → GEROPSY 13:05
PROVIDERS: ADMIT Psychiatry & Neurology Psychiatry; ATTEND Psychiatry & Neurology Psychiatry
DX: G30.0 Alzheimer's disease with early onset (principal); F01.51 Vascular dementia, unspecified severity, with behavioral disturbance; F02.81 Dementia in other diseases classified elsewhere, unspecified severity, with behavioral disturbance; F32.9 Major depressive disorder, single episode, unspecified; G25.2 Other specified forms of tremor; F41.9 Anxiety disorder, unspecified; F63.9 Impulse disorder, unspecified; G40.909 Epilepsy, unspecified, not intractable, without status epilepticus; R63.3 Feeding difficulties; N28.1 Cyst of kidney, acquired; Z66 Do not resuscitate; G47.00 Insomnia, unspecified; E86.0 Dehydration; E78.00 Pure hypercholesterolemia, unspecified; D72.829 Elevated white blood cell count, unspecified; E78.5 Hyperlipidemia, unspecified; Z79.82 Long term (current) use of aspirin; Z79.899 Other long term (current) drug therapy; Z82.0 Family history of epilepsy and other diseases of the nervous system; Z82.49 Family history of ischemic heart disease and other diseases of the circulatory system; Z91.81 History of falling; Z83.3 Family history of diabetes mellitus; Z88.5 Allergy status to narcotic agent
CPT/HCPCS: 36415; 70450; 71045; 76700; 80048; 80053; 80061; 80164; 81001; 82140; 82306; 82607; 83036; 83540; 83550; 83605; 83735; 84436; 84443; 84480; 85007; 85025; 85610; 86593; 87040; 93005; 95816; 92610; 97116; 97530; 97535; 99285-25